=== PATIENT | female | born 1965 | race American Indian/Alaskan Native ===

== ENCOUNTER 2016-11-07 15:15 | Emergency (ER) | payer OTHER ==
[~2016-11-07] VITALS: Ht 160 cm; Wt 70.8 kg
[~2016-11-07 15:15] MED LIST: ADVIL200 M1 PO; ASPIR 8181 MG PO; BENADRYL25 MG PO; CALCIUM + VITA1 EACH PO; CIPROFLOXACIN500 MG PO; GLUCOPHAGE XR750 MG PO; IBUPROFEN400 MG PO; IBUPROFEN600 MG PO; MOTRIN600 MG PO; MULTI VITAMIN1 EACH PO; MULTIVITAMINS1 EAC7 PO; NORCO 5-325 TA1 EACH PO; NORCO 7.5-3251 EACH PO; PANCREASE MT PO; POTASSIUM CHLO20 ME1 PO; RANITIDINE HCL150 MG PO; REDNESS RELIEF15 M1 OP; TRAMADOL HCL50 MG PO; TUMS200 MG PO; TYLENOL WITH C1 EACH PO; TYLENOL325 MG PO; VITAMIN D2000 UNI1 PO; VITAMIN D5000 UNIT PO; XALATAN2.5 ML OU
[2017-03-22] MEDS ORDERED: GLUCOPHAGE1000 MG PO (08:57)
== END 2016-11-07 15:32 | disposition home or self-care (01) ==
LOC: ED 15:15
DX: Z00.8 Encounter for other general examination (principal)

== ENCOUNTER 2016-11-13 18:46 | Emergency (ER) | payer OTHER ==
[~2016-11-13] VITALS: Ht 160 cm; Wt 70.8 kg
[2016-11-13] MEDS ORDERED: ZANTAC150 MG PO (22:15)
[2016-11-13] MEDS ORDERED: ZOFRAN ODT4 MG PO (22:15)
--- NOTE | 2016-11-14 06:23 | EKG ---
[facility] [address] [facility] [place], [place] [address] Signed Normal sinus rhythm Prolonged QT Abnormal ECG No previous ECGs available Confirmed by COLLINS NUNEZ MD ([id number]) on 11/14/2016 6:23:21 AM Electronically Signed By: COLLINS NUNEZ MD 11/14/16622 PATIENT NAME: TAVIA MENDIETAPRINCE LARA Electrocardiogram DATE OF : 67 PHYSICIAN: COLLINS NUNEZ MD REPORT #: [id number] REPORT IS CONFIDENTIAL AND NOT TO BE RELEASED WITHOUT AUTHORIZATION
[2017-03-22] MEDS ORDERED: GLUCOPHAGE1000 MG PO (08:57)
== END 2016-11-13 22:25 | disposition home or self-care (01) ==
LOC: ED 18:46
DX: F10.188 Alcohol abuse with other alcohol-induced disorder (principal); K29.20 Alcoholic gastritis without bleeding; K85.20 Alcohol induced acute pancreatitis without necrosis or infection; F41.9 Anxiety disorder, unspecified; R73.03 Prediabetes; Z98.51 Tubal ligation status; Z90.710 Acquired absence of both cervix and uterus; Z90.49 Acquired absence of other specified parts of digestive tract; Z91.038 Other insect allergy status; Z79.84 Long term (current) use of oral hypoglycemic drugs; Z79.82 Long term (current) use of aspirin; Z79.899 Other long term (current) drug therapy
CPT/HCPCS: 80053; 81001; 83690; 84484; 85025; 93005; 93010; 96361; 96374; 96375; 99283; G0480; J2405; J2765; J3010; J7030

== ENCOUNTER 2016-12-18 13:15 | Inpatient (IN) | payer OTHER ==
[~2016-12-18] VITALS: Ht 160 cm; Wt 72.6 kg
[~2016-12-18 13:15] MED LIST changes: +ZANTAC150 MG PO; +ZOFRAN ODT4 MG PO
[2016-12-18] MEDS ORDERED: IBUPROFEN800 MG PO (17:10)
--- NOTE | 2016-12-18 17:50 | NUR ---
TO FLOOR FROM ED, PANCREATITIS. PATIENT COMPLAINING OF PAIN 10/10 ON PAIN SCALE. ADMINISTERED 1MG DILAUDID IV, CONTROLS PAIN WELL. IV FLUIDS INFUSING. PATIENT RESTING BACK IN BED. LIPASE 3436. CBG 430 IN ED, INSULIN ADMINISTERED. DISCUSSED WITH PATIENT DIABETES, AND PANCREAS. WILL NEED CONTINUED EDUCATION.
--- NOTE | 2016-12-18 18:23 | NUR ---
PT USED BATHROOM AND IS NOW BACK IN BED. PT ASKED FOR SWABS FOR MOUTH
--- NOTE | 2016-12-18 19:15 | NUR ---
BEDSIDE SHIFT REPORT RECEIVED FROM FAMILIA HINDS. PT SITTING UP IN BED, STATES HER ABDOMEN IS STARTING TO HURT AGAIN. IV PATENT AND INFUSING WNL. DENIES FURTHER REQUESTS AT THIS TIME.
--- NOTE | 2016-12-18 19:50 | NUR ---
PT NAUSEATED, WITH SMALL AMOUNT OF EMESIS, 4MG IV ZOFRAN GIVEN.
--- NOTE | 2016-12-18 20:10 | NUR ---
PT REPORTS 9/10 ABDOMINAL PAIN, 1MG IV DILAUDID GIVEN AT THIS TIME. WILL CONTINUE TO MONITOR.
--- NOTE | 2016-12-18 21:15 | NUR ---
CHECKED IN ON PT WHO IS CURRENTLY SLEEPING, RESPIRATIONS EVEN AND UNLABORED.
--- NOTE | 2016-12-18 22:40 | NUR ---
CALLED DR. NUNEZ BECAUSE PT WAS FEELING NAUSEATED AND DID NOT HAVE ANY MORE MEDICATION AVAILABLE. NEW ORDER RECEIVED FOR 12.5MG IV PHENERGAN. ASSESSMENT COMPLETED. ALERT/ORIENTED. REPORTS 8/10 ABDOMINAL PAIN, 1MG IV DILAUDID GIVEN. LUNGS CLEAR, RA, PULSE OX. HR REUGLAR. BOWEL TONES SLIGHTLY HYPOACTIVE, NAUSEA REPORTED, 12.5MG IV PHENERGAN GIVEN. SKIN INTACT, CMS INTACT. PT DENIES FURTHER REQUESTS AT THIS TIME.
--- NOTE | 2016-12-19 00:01 | NUR ---
PT SLEEPING, NO APPARENT DISTRESS. RESPIRATIONS EVEN AND UNLABORED. IV INFUSING WNL. WILL CONTIUE TO MONITOR.
--- NOTE | 2016-12-19 02:03 | NUR ---
PT REPORTS 8/10 ABDOMINAL PAIN, 1MG IV DILAUDID GIVEN. PT ALSO REPORTS NAUSEA, 4MG IV ZOFRAN GIVEN. CB. DENIES NEEDS, WILL CONTINUE TO MONITOR.
--- NOTE | 2016-12-19 02:49 | NUR ---
PT SLEEPING, NO APPARENT DISTRESS. RESPIRATIONS EVEN AND UNLABORED, PULSE OX IN PLACE. WILL CONTINUE TO MONITOR.
--- NOTE | 2016-12-19 06:17 | NUR ---
ASSESSMENT COMPLETED. PT RATES ABDOMINAL PAIN 8/10 ALSO STATES SHE IS MILDLY NAUSEATED. CIWA COMPLETED AT THIS TIME:7, 1MG IV ATIVAN ADMINISTERED, WILL HOLD OFF ON PAIN AND ANTIEMETIC MEDICATION FOR THE TIME BEING. ASSESSMENT OTHERWISE IS UNCHANGED. PT SBA TO BATHROOM, VOIDED AND THEN RETURNED TO BED. CALL LIGHT IS WITHIN REACH, DENIES FURTHER REQUESTS. WILL CONTINUE TO MONITOR.
--- NOTE | 2016-12-19 06:19 | NUR ---
PT SLEPT MAJORITY OF NIGHT. PAIN WELL CONTROLLED WITH IV DILAUDID. OCCASIONAL NAUSEA AND EMESIS, ZOFRAN AND PHERGAN ADMINISTERED. BOWEL TONES HYPOACTIVE. NPO. SBA. VOIDING QS. IV PATENT, NS @125. CIWA THIS MORNIN, 1MG IV ATIVAN GIVEN, WILL TITRATE TO FULL DOSE IF NEEDED. ACCUCHECKS.
--- NOTE | 2016-12-19 09:00 | NUR ---
PATIENT AWAKE, REQUESTING PAIN MEDICAITON, REPORTS FEELING BETTER. AT BEDSIDE. IV FLUIDS INFUSING. NO TENDERNESS WITH PALPATION. STBY TO BR. PATIENT STATES " I AM FEELING A LITTLE BETTER".
--- NOTE | 2016-12-19 11:06 | NUR ---
PT SHOWERED AND IS NOW SITTING IN THE CHAIR WITH CALL LIGHT IN REACH
--- NOTE | 2016-12-19 13:00 | NUR ---
REPORTED CBG TO DR. NUNEZ NEW ORDERS FOR 5 UNITS OF LEVEMIR. NO COMPLAINTS OF PAIN AT THIS TIME. RESTING WITH EYES CLOSED. PATIENT APPEARS CALM. AT BEDSIDE WATCHING TELEVISION. PROVIDED PATIENT WITH APPLE JUICE AND ICE CHIPS TO SIP ON FOR COMFORT. PATIENT VERBALIZED UNDERSTANDING TO TAKE IT SLOW.
--- NOTE | 2016-12-19 14:13 | NUR ---
PT IS SITTING UP IN BED WATCHING TV.PT DID NOT NEED ANYTHING ELSE
--- NOTE | 2016-12-19 15:50 | NUR ---
Medications reconciled by pharmacist using pharmacy RX records and verification with patient interview. Xalatan opth drops ordered. Patient will have her bring in her own as we do not carry them
--- NOTE | 2016-12-19 17:00 | NUR ---
REPORTED ELEVATED CBG TO DR. LOCKWOOD WHO VERBALIZED WOULD LIKE CBGS TO STAY ON HIGHER SIDE FOR AWHILE, NO INSULIN AT THIS TIME. PATIENT TOLERATED SIPS OF CLEAR FLUDS AND ICE CHIPS. UP AMBULATING IN HALLS, TOLERATING ACTIVITY WELL. NO REPORTS OF DISCOMFORT AT THIS TIME.
--- NOTE | 2016-12-19 17:44 | NUR ---
PT WALKED TWO LAPS, USED BATHROOM, AND IS NOW SITTING UP IN BED WITH CALL LIGHT IN REACH. PT IS ALLOWED ICE CHIPS. PT ASKED FOR A NEW SPOON
--- NOTE | 2016-12-19 18:39 | NUR ---
PATIENT TOLERATING SIPS OF CLEAR FLUIDS, PAIN MANAEMENT IMPROVED. ADMINISTERED PAIN MEDICATION X1 TODAY. TOLERATING AMBULATING IN HALLS WELL. LUNG SOUNDS CLEAR. IV FLUIDS INFUSING WELL. AT BEDSIDE.
--- NOTE | 2016-12-19 19:20 | NUR ---
BEDSIDE SHIFT REPORT RECEIVED FROM FAMILIA HINDS. PT SITTIN UP IN BED, STATED THAT PAIN IS STARTING TO INCREASE. DENIES NAUSEA. IV PATENT, INFUSING WNL. WILL CONTINUE TO MONITOR.
--- NOTE | 2016-12-19 20:23 | NUR ---
ASSESSMENT COMPLETED. ALERT/ORIENTED, REPORTS 8/10 ABDOMINAL PAIN, 1MG IV DILAUDID GIVEN. LUNGS CLEAR, RA, PULSE OX. HR REGULAR. BOWEL TONES ACTIVE, DENIES NAUSEA. CMS INTACT. CB, LEVEMIR ADMINISTERED. CIWA:4, WILL CONTINUE TO MONITOR FOR S/SX OF ETOH WITHDRAWAL. PT NOW UP TO AMBULATE IN HALLWAY.
--- NOTE | 2016-12-19 22:17 | NUR ---
PT RESTING IN BED WITH EYES CLOSED, NO APPARENT DISTRESS. RESPIRATIONS EVEN AND UNLABORED, WILL CONTINUE TO MONITOR.
--- NOTE | 2016-12-19 23:39 | NUR ---
PT APPEARS TO BE SLEEPING AT THIS TIME. RESPIRATIONS EVEN AND UNLABORED, SATS: 94% ON RA. NO APPARENT DISTRESS. WILL CONTINUE TO MONITOR.
--- NOTE | 2016-12-20 02:45 | NUR ---
PT APPEARS TO BE SLEEPING, NO APPARENT DISTRESS. RESPIRATIONS EVEN AND UNLABORED. OXYGEN SATS: 93% ON RA. WILL CONTINUE TO MONITOR.
--- NOTE | 2016-12-20 03:27 | NUR ---
PT CALLED TO REQUEST PAIN MEDICATION. RATES ABDOMINAL PAIN 7/10, 1MG IV DILAUDID GIVEN. ASSESSMENT COMPLETED. LUNGS CLEAR, RA, PULSE OX. HR REGULAR. BOWEL TONES ACTIVE, NO NAUEA. IV PATENT. NO FURTHER REQUESTS AT THIS TIME.
--- NOTE | 2016-12-20 05:22 | NUR ---
PT SLEPT WELL DURING SHIFT. ORIENTED WHILE AWAKE. PAIN WELL CONTROLLED WITH PRN DILAUDID, GIVEN TWICE. LUNGS CLEAR, RA, PULSE OX. HR REGULAR. BOWEL TONES ACTIVE, MILD NAUSEA AT TIMES, NO EMESIS, HAS NOT REQUIRED ANTIEMETICS. TOLERATING ICE CHIPS. ACCUCHECKS AND LEVEMIR. IV PATENT, POSITIONAL, NS @125. MONITORING CIWA: 4 AT BEGINNING OF SHIFT, NO PRN ATIVAN REQUIRED. SBA, STEADY ON FEET, AMBULATED IN HALLWAY ONCE.
--- NOTE | 2016-12-20 09:00 | NUR ---
PATIENT SITTING UP, TOLERATING CLEAR LIQUIDS. NEW ODERS FOR MIRALAXM, TOLERATED WELL. NO COMPLAINTS OF NAUSEA. PATIENT REQUESTED IV DILAUDID FOR PAIN 4/10 ON PAIN SCALE. ADMINISTERED 0.5MG, PATIENT UP AMBULATING IN HALLS. EDUCATION WITH IS. VS STABLE.
--- NOTE | 2016-12-20 13:00 | NUR ---
RESTING IN BED EYES CLOSED, ENCOURAGED PATIENT TO GET UP AND AMBULATE IN HALLS. PAIN WELL CONTROLLED. ABDOMEN SOFT, BOWEL SOUNDS ACTIVE. VS STABLE.
--- NOTE | 2016-12-20 16:58 | NUR ---
CBG 211, PATIENT STATES FEELS BETTER BUT STILL HAVING PAIN. RATES 4/10 ON PAIN SCALE. ENCOURAGED PATIENT TO GET UP AND AMBULATE IN HALLS, AGREED AND IS TOLERATING ACTIVITY WELL.
--- NOTE | 2016-12-20 18:40 | NUR ---
PATIENT ADVANCED TO FULL LIQUID DIET ADA, CBG STABLE. AAOX3. PAIN WELL CONTROLLED AND IMPROVED SINCE ADMISSION. PAIN REGIME CHANGED TO ROXICODONE PO. VS STABLE. PATIENT UP AMBULATING IN HALLS THROUGHOUT DAY, TOLERATING ACTIVITY WELL.
--- NOTE | 2016-12-20 19:20 | NUR ---
BEDSIDE SHIFT REPORT RECEIVED FROM FAMILIA HINDS. PT IS ALERT/ORIENTED. IV PATENT, INFUSING WNL. WILL CONTINUE TO MONITOR.
--- NOTE | 2016-12-20 21:10 | NUR ---
ASSESSMENT COMPLETED. ALERT/ORIENTED. REPORTS 11/16 ABDOMINAL PAIN, 0.5MG IV DILAUDID GIVEN SINCE IT WAS TOO EARLY TO GIVE OXYCODONE. LUNGS CLEAR, RA. HR REGULAR. BOWEL TONES ACTIVE, DENIES NAUSEA. CB, 5 UNITS LEVEMIR ADMINISTERED. CIWA: 0. PT DENIES FUTHER REQUESTS AT THIS TIME.
--- NOTE | 2016-12-20 21:25 | NUR ---
PT UP AMBULATING IN HALLWAY. STEADY ON FEET.
--- NOTE | 2016-12-20 23:15 | NUR ---
PT CALLED TO REQUEST PAIN MEDICATION. 1 TAB OXYCODONE GIVEN AT THIS TIME. PT DENIES FURTHER REQUESTS.
--- NOTE | 2016-12-21 02:48 | NUR ---
PT SLEEPING AT THIS TIME, NO APPARENT DISTRESS. RESPIRATIONS EVEN AND UNLABORED. WILL CONTINUE TO MONITOR.
--- NOTE | 2016-12-21 05:07 | NUR ---
UNEVENTFUL SHIFT, PT SLEPT MAJORITY OF NIGHT. PAIN WELL CONTROLLED WITH PRN OXYCODONE, GAVE 0.5MG IV DILAUDID ONCE FOR BREAKTHROUGH PAIN. NO NAUSEA. LUNGS CLEAR, RA. HR REGULAR. BOWEL TONES ACTIVE, TOLERATING FULL LIQUIDS. IV PATENT, NS @ 65ML/HR. VOIDING QS. STEADY ON FEET, INDEPENDENT, AMBULATED IN HALLWAY. CIWA: 0. ACCUCHECKS AND BID LEVEMIR.
[2016-12-21] MEDS ORDERED: OXYCODONE HCL5 MG PO (10:04)
[2016-12-21] MEDS ORDERED: METFORMIN HCL500 MG PO (10:04)
[2016-12-21] MEDS ORDERED: BLOOD GLUCOSE1 EAC1 MISC (10:05)
[2016-12-21] MEDS ORDERED: BLOOD GLUCOSE1 EAC8 MISC (10:05)
[2016-12-21] MEDS ORDERED: ACCU-CHEK1 EAC1 MISC (10:06)
--- NOTE | 2016-12-21 10:21 | NUR ---
PATIENT RESTING IN BED WITH FAMILY BY HER SIDE. CALL BUTTON IN REACH. FACE AND HANDS WASHED. ORAL CARE DONE. PATIENT WOULD LIKE TO SHOWER WHEN SHE GOES HOME TODAY. FRESH ICE WATER GIVEN. NO OTHER NEEDS AT THIS TIME.
--- NOTE | 2016-12-21 11:18 | NUR ---
DISCHARGE INSTRUCTIONS GIVEN TO PT WITH FAMILY PRESENT. TO CHECK BG BEFORE BREAKFAST EVERY AM ON FLOW CHART GIVEN TO DOCUMENT ON THEN TAKE TO FOLLOW UP APPOINTMENT. PT ED. GIVEN ON ADA DIET LOW CARB/SUGAR DIET CHOICES. DISCUSSED MEDICATIONS WITH PT AND LAST DOSE NEXT DOSE WRITTEN ON D/C PACKET. I.V. REMOVED WNL TIP INTACT. PT VERBALIZES UNDERSTANDING AND HAS NO FURTHER QUESTIONS. FOLLOW UP APPOINTMENT THSULY. PRE-SCHEDULED
[2017-03-22] MEDS ORDERED: GLUCOPHAGE1000 MG PO (08:57)
== END 2016-12-21 11:18 | disposition home or self-care (01) | DRG 439 ==
LOC: ED 13:15 → MS 16:20
PROVIDERS: ADMIT Internal Medicine
DX: K85.20 Alcohol induced acute pancreatitis without necrosis or infection (principal); F10.188 Alcohol abuse with other alcohol-induced disorder; D50.8 Other iron deficiency anemias; E11.65 Type 2 diabetes mellitus with hyperglycemia; E11.39 Type 2 diabetes mellitus with other diabetic ophthalmic complication; H40.9 Unspecified glaucoma; F41.9 Anxiety disorder, unspecified; K59.00 Constipation, unspecified; Z79.84 Long term (current) use of oral hypoglycemic drugs; Z79.4 Long term (current) use of insulin; Z90.710 Acquired absence of both cervix and uterus; Z90.49 Acquired absence of other specified parts of digestive tract
CPT/HCPCS: 36415; 74177; 80048; 80053; 81001; 82150; 82607; 82728; 82746; 83036; 83540; 83690; 83735; 84100; 84466; 85025; 85045; 85610; 96361; 96374; 96375; 99285; J1170; J1650; J2060; J2405; J2550; J7030; Q9967

== ENCOUNTER 2017-03-23 08:50 | Day surgery (SDC) | payer OTHER ==
[~2017-03-23] VITALS: Ht 160 cm; Wt 67.1 kg
[~2017-03-23 08:50] MED LIST changes: +ACCU-CHEK1 EAC1 MISC; +BLOOD GLUCOSE1 EAC1 MISC; +BLOOD GLUCOSE1 EAC8 MISC; +GLUCOPHAGE1000 MG PO; +IBUPROFEN800 MG PO; +METFORMIN HCL500 MG PO; +OXYCODONE HCL5 MG PO
[2017-03-23] MEDS ORDERED: RANITIDINE HCL75 MG PO (09:05)
--- NOTE | 2017-03-23 12:38 | NUR ---
03/23/17 1238 Nicole Cano 1233-PATIENT ARRIVED TO PACU ON 10L MASK 02 SAT 100% ORAL AIRWAY IN PLACE. NONAROUSABLE. DRESSING CDI TO RIGHT KNEE ELEVATED ON PILLOW ICE APPLIED. GOOD CAP REFILL, WARMTH, PALPABLE PEDAL PULSE. GLUCOSE 160
--- NOTE | 2017-03-23 13:40 | NUR ---
PT ARRIVED FROM PACU. REPORTING 8/10 PAIN (SEE MAR FOR MEDICATION GIVEN). PT TOLERATING PO FOOD AND FLUIDS, PT DENIES NAUSEA. FAMILY AT BEDSIDE. BED RAILS UP, CALL LIGHT WITHIN REACH. PT AWAKE AND RESPONDING APPROPRIATLY TO QUESTIONS.
--- NOTE | 2017-03-23 14:46 | NUR ---
PT STEADY ON FEET WITH ONE PERSON STAND BY ASSIST. PT TOLERATING PO AND VOIDING WITHOUT ISSUE. PT REPORST 11/16 PAIN THAT IS "GETTING MUCH BETTER." PT DRESSES SELF. DISCHARGE INSTRUCTIONS REVIEWED WITH PT. PT VERBALIZES UNDERSTANDING OF DISCHARGE INSTRUCTIONS. QUESTIONS ANSWERED.
--- NOTE | 2017-03-25 07:17 | OR ---
[facility] [address] [place], [place] [address] Signed DATE OF OPERATION: 03/22/2017 SURGEON: Cortes Eid MD PREOPERATIVE DIAGNOSIS: Loose body, right knee with patellofemoral arthrosis. POSTOPERATIVE DIAGNOSIS: Loose body, right knee with patellofemoral arthrosis. PROCEDURE: Right knee arthroscopy with removal of loose body x1 and limited patellofemoral chondroplasty. ANESTHESIA: General. SPECIMENS: There were no specimens. COMPLICATIONS: There were complications. TOURNIQUET TIME: About 30 minutes. WHAT WAS DONE: The patient was taken to the operating room. After anesthesia was induced, the right lower extremity was positioned, prepped and draped in a routine sterile fashion. The leg was exsanguinated with an Esmarch bandage. Pneumatic tourniquet about the upper thigh was inflated to 300 mmHg pressure. The outflow cannula was placed superomedially and the arthroscope in the standard anterolateral portal. Diagnostic arthroscopy was commenced in the suprapatellar pouch, where there was a moderate injected synovitis. The medial recess was unremarkable, as was the medial compartment. The intercondylar notch was unremarkable. have synovitis in the lateral compartment which precluded visualization. We therefore created an anteromedial portal under direct visualization with transillumination and the use of a spinal needle for localization. We then introduced the motorized shaver, did a limited synovectomy and could visualize the lateral compartment, which was similarly unremarkable. The lateral recess was unremarkable except for the loose body, no located at the apex of the lateral recess. We withdrew the outflow cannula, inserted a grasper. We were able to grasp the loose body and delivered out of the wound without difficulty. We then introduced the shaver through the superomedial portal and did a very limited chondroplasty of the patellofemoral joint as the entire lateral half of the patella and the entire lateral half of the trochlea and the lateral femoral condyle with the patella track was completely devoid of articular cartilage. The knee was copiously irrigated and drained. The portals were closed. Electronically Signed By: CORTES EID MD 03/25/17 0717 PATIENT NAME: KAREY MENDIETA OPERATIVE REPORT DATE OF : 67 PHYSICIAN: CORTES EID MD REPORT #: [id number] REPORT IS CONFIDENTIAL AND NOT TO BE RELEASED WITHOUT AUTHORIZATION [address] [address] Signed Sterile dressing was applied. She was awakened and taken to recovery room, where she arrived in stable condition. MD KEILA Betancourt/MODL /[id number] Electronically Signed By: CORTES EID MD 03/25/17 0717 PATIENT NAME: KAREY MENDIETA JANE OPERATIVE REPORT DATE OF : 67 PHYSICIAN: CORTES EID MD REPORT #: [id number] REPORT IS CONFIDENTIAL AND NOT TO BE RELEASED WITHOUT AUTHORIZATION
== END 2017-03-23 14:50 | disposition home or self-care (01) ==
LOC: OPS 08:50 → DS 08:50 → OPS 10:15
PROVIDERS: Orthopaedic Surgery
PROC: 0SBC4ZZ Excision of Right Knee Joint, Percutaneous Endoscopic Approach (ICD-10-PCS; principal; 2017-03-23 10:15)
DX: M17.11 Unilateral primary osteoarthritis, right knee (principal); M23.41 Loose body in knee, right knee; M65.861 Other synovitis and tenosynovitis, right lower leg; H40.9 Unspecified glaucoma; E11.9 Type 2 diabetes mellitus without complications; K21.9 Gastro-esophageal reflux disease without esophagitis; I20.9 Angina pectoris, unspecified; Z95.5 Presence of coronary angioplasty implant and graft
CPT/HCPCS: 01400; J0690; J1100; J1170; J1885; J2250; J2405; J2704; J3010; J3301; J7120

== ENCOUNTER 2018-01-03 12:39 | Inpatient (IN) | payer OTHER ==
[~2018-01-03] VITALS: Ht 160 cm; Wt 71.7 kg
[~2018-01-03 12:39] MED LIST changes: +RANITIDINE HCL75 MG PO
--- NOTE | 2018-01-19 09:23 | OR ---
[facility] [address] [place], [place] [address] Signed DATE OF OPERATION: 01/18/2018 SURGEON: Cortes Paulino MD PREOPERATIVE DIAGNOSIS: End-stage osteoarthritis, right knee. POSTOPERATIVE DIAGNOSIS: End-stage osteoarthritis, right knee. PROCEDURE: Right total knee arthroplasty. ANESTHESIA: Spinal with sedation. SPECIMENS AND COMPLICATIONS: There were no specimens or complications. TOURNIQUET TIME: About 75 minutes. IMPLANTS: Attune total knee components a size 5 narrow PS femoral component, a size 3 tibial tray, a 6 mm size 5 PS poly, and a 35 mm all-poly patella. WHAT WAS DONE: The patient was taken to the operating room. After anesthesia was induced and the airway supported, the right lower extremity was positioned, prepped and draped in a routine sterile fashion. The leg was exsanguinated with an Esmarch bandage. Pneumatic tourniquet was inflated to 300 mmHg pressure. A straight anterior approach was made at the knee through skin and subcutaneous tissue. A small medial flap was created and an anteromedial arthrotomy performed. The patella was everted about 7 mm were trimmed off the posterior aspect of the patella, which was severely worn. We then placed the lollipop for the 35 mm all-poly patella on the cut surface of the patella and placed the drill holes. We then snap-fit the trial patella in place and finally we had reconstituted approximately 23 mm of patellar height. We then slid the patella into the lateral recess. We then gently flexed the knee. We placed the [employer] navigation system on the distal end of the femur and following the prompts digitized the distal femur. We then resected the distal femur in neutral varus valgus, 3 degrees of flexion Electronically Signed By: CORTES PAULINO MD 01/19/18 0923 PATIENT NAME: KAREY MENDIETA OPERATIVE REPORT DATE OF : 67 REPORT #: [id number] PHYSICIAN: CORTES PAULINO MD PCP: ALEXY COBB REPORT IS CONFIDENTIAL AND NOT TO BE RELEASED WITHOUT AUTHORIZATION [facility] [address] [place], [place] [address] Signed taking an 11 mm off the medial side. We then transitioned the navigation system to the proximal tibia. Again, following the prompts for digitized the proximal tibia. I resected the tibia at about 4 mm off the medial side in neutral varus valgus with 3 degrees of posterior slope per the Attune surgical protocol. The tibial wafer was then removed along with remnants of the medial lateral meniscus, ACL and PCL. We then placed the extension block in place and put the knee in full extension and we are happy with alignment, position, and stability with the 6 mm of the block in place. We then flexed the knee. The femur sized to a size 5. We placed a size 5 three in one cutting block on the distal femur in 3 degrees of external rotation. I made anterior, posterior, and chamfer cuts. The notch cutting block was then placed on the distal femur and the notch was cut out. We then placed the lamina elementary substitute teacher in the knee joint and removed the remaining portions of the medial lateral meniscus, ACL and PCL. We then placed the femoral trial on the distal femur and drilled the lug holes. The tibia had sized to a size three when we resected the tibial wafer. Therefore, we put a three with a 5 mm in the joint and cycled. We marked the rotational alignment. We then removed the trials and prepared the tibia with a standard reamer and broach. The knee was then copiously irrigated and meticulously dried. A batch of antibiotic cement was mixed and we cemented the tibia, femoral and patellar components into place. We put a trial 6 mm poly on the tibial tray and this gave us a full extension with a good balance in flexion extension in mid range. The knee was held in full extension until all the cement cured. Marginal cement of heights were sought and removed. The knee was again copiously irrigated. We did trial the knee with a 7 mm poly and although we could get it then inflection, clearly compromised our extension. We therefore chose a 6 mm poly and snap fitted into the tibial tray. The knee was copiously irrigated and drained. The wound was closed in a standard fashion. Sterile dressing applied. The patient was awakened to the recovery room where she arrived in stable condition. Counts were correct and antibiotic protocols were followed. Cortes Paulino MD WFB/MODL /[id number] Copies: Electronically Signed By: CORTES PAULINO MD 01/19/18 0923 PATIENT NAME: KAREY MENDIETA OPERATIVE REPORT DATE OF : 67 REPORT #: [id number] PHYSICIAN: CORTES PAULINO MD PCP: ALEXY COBB REPORT IS CONFIDENTIAL AND NOT TO BE RELEASED WITHOUT AUTHORIZATION [facility] [address] [place], [place] [address] Signed ~ Electronically Signed By: CORTES PAULINO MD 01/19/18922 PATIENT NAME: TAVIA MENDIETAPRINCE LARA OPERATIVE REPORT DATE OF : 67 REPORT #: [id number] PHYSICIAN: CORTES PAULINO MD PCP: ALEXY COBB REPORT IS CONFIDENTIAL AND NOT TO BE RELEASED WITHOUT AUTHORIZATION
[2018-01-19] MEDS ORDERED: BLOOD GLUCOSE1 EAC1 MISC (11:04)
[2018-01-19] MEDS ORDERED: BLOOD GLUCOSE1 EAC8 MISC (11:05)
[2018-01-19] MEDS ORDERED: ACCU-CHEK1 EAC1 MISC (11:06)
[2018-01-19] MEDS ORDERED: XALATAN2.5 ML OU (11:07)
[2018-01-21] MEDS ORDERED: XARELTO10 MG PO (13:57)
[2018-01-21] MEDS ORDERED: DILAUDID4 MG PO (13:58)
[2018-01-21] MEDS ORDERED: OXYCODONE HCL10 MG PO (13:59)
--- NOTE | 2018-01-22 10:33 | DS ---
[facility] [address] [place], [place] [address] Signed ADMISSION DATE: 01/18/2018 DISCHARGE DATE: 01/21/2018 DIAGNOSES AT TIME OF DISCHARGE: 1. Osteoarthritis, right knee. 2. Diabetes mellitus. PROCEDURES PERFORMED: Right total knee arthroplasty. ATTENDING PHYSICIAN: Cortes Paulino MD. The hospitalists were consultants. HISTORY OF PRESENT ILLNESS: The patient is a 52-year-old female with progressive osteoarthritis in the right knee. No longer getting any symptomatic relief from conservative management. Given that scenario, she was comfortable considering total knee arthroplasty on the right. HOSPITAL COURSE: She was admitted to Day Surgery on 01/18/2018. She was taken to the operating room, where she underwent a total knee arthroplasty on the right with an Attune total knee system. She had a size 5 narrow PS femur, a size 3 fixed bearing tibial tray, and a 6 mm posterior stabilized poly, and a 35 mm all-poly patella. Postoperatively, she has done well. She was seen in consultation by the Hospitalist Service, who has managed her diabetes and concurrent medical issues. In fact, she has done very well with physical therapy. She has passed all of her physical therapy parameters and is felt to be safe and independent for discharge home. We are discharging her home alternating Dilaudid and oxycodone for pain relief. We will have her continue on the Xarelto 10 mg once a day for DVT prophylaxis for the next month. We will have her follow up with us in about 6 weeks. We will arrange for her to get a walker and therapy has already been ordered for her beginning on Wednesday. MD KEILA Betancourt/RICKL /[id number] Electronically Signed By: CORTES PAULINO MD 01/22/18 1033 PATIENT NAME: KAREY MENDIETA DISCHARGE SUMMARY DATE OF : 67 REPORT #: [id number] PHYSICIAN: CORTES PAULINO MD PCP: ALEXY COBB REPORT IS CONFIDENTIAL AND NOT TO BE RELEASED WITHOUT AUTHORIZATION [address] [place] [address] Signed Copies: ~ Electronically Signed By: CORTES PAULINO MD 01/22/18 1033 PATIENT NAME: KAREY MENDIETA DISCHARGE SUMMARY DATE OF : 67 REPORT #: [id number] PHYSICIAN: CORTES PAULINO MD PCP: ALEXY COBB REPORT IS CONFIDENTIAL AND NOT TO BE RELEASED WITHOUT AUTHORIZATION
== END 2018-01-21 16:15 | disposition home or self-care (01) | DRG 470 ==
LOC: MS 01-18 08:45 → DSVR 01-18 08:55 → MS 01-18 08:55
PROVIDERS: ADMIT Orthopaedic Surgery
PROC: 0SRC0J9 Replacement of Right Knee Joint with Synthetic Substitute, Cemented, Open Approach (ICD-10-PCS; principal; 2018-01-18 10:45)
DX: M17.11 Unilateral primary osteoarthritis, right knee (principal); Z79.84 Long term (current) use of oral hypoglycemic drugs; E11.9 Type 2 diabetes mellitus without complications; K21.9 Gastro-esophageal reflux disease without esophagitis; F10.20 Alcohol dependence, uncomplicated; H40.9 Unspecified glaucoma; R01.1 Cardiac murmur, unspecified
CPT/HCPCS: 01402; 36415; 73560; 80048; 83036; 85025; 94762; 97110; 97116; 97161; C1713; C1776; G8979; J0690; J1815; J1885; J2250; J2274; J2300; J2370; J2405; J2550; J2704; J3010; J7120

== ENCOUNTER 2018-05-17 16:53 | Observation (INO) | payer OTHER ==
[~2018-05-17] VITALS: Ht 160 cm; Wt 70.2 kg
[~2018-05-17 16:53] MED LIST changes: +DILAUDID4 MG PO; +OXYCODONE HCL10 MG PO; +XARELTO10 MG PO
[2018-05-17] MEDS ORDERED: FLAGYL500 MG PO (19:12)
--- NOTE | 2018-05-17 20:47 | NUR ---
PT ADMITTED TO ROOM 114 FROM ED FOR ABDOMINAL PAIN RELATED TO PANCREATITIS. PT WALKED TO BATHROOM OFF THE STRETCHER, AND BACK TO BED INDEPENDENTLY. DENIES NAUSEA, BUT WAS WANTING SOMETHING FOR PAIN. EDUCATED TO CALL LIGHT WHICH PT STATED AWARENESS, EDUCATED PT TO USE CALL LIGHT WHEN SHE NEEDS TO USE BATHROOM.
--- NOTE | 2018-05-17 21:10 | NUR ---
MED FOR ABDOMINAL PAIN; SUGAR FREE JELLO, SUGAR FREE SPRITE, AND WATER. PT STATED THAT SHE LAST CHECK HER BLOOD SUGAR "YESTERDAY", HAS RUN OUT OF HER EYE DROPS FOR " GLAUCOMA". IV LR INFUSING @ 125 IN RAC. CALL LIGHT WITHIN REACH.
--- NOTE | 2018-05-17 21:30 | NUR ---
PATIENT RESTING IN BED WATCHING TV. REPORTS PAIN 7/10, PRN PAIN MEDS RECENTLY PROVIDED BY [employer]ISHING WORKER. PAIN IS EPIGASTRIC CRAMPING, PATIENT DENIES NAUSEA. ABD IS SOFT, BOWEL SOUNDS ACTIVE. SKIN IS GROSSLY INTACT. IV FLUIDS PER ORDER. PATIENT UP TO THE BATHROOM, SBA. STEADY GAIT. NO OTHER NEEDS AT THIS TIME. PATIENT BACK TO BED, CALL LIGHT IN REACH.
--- NOTE | 2018-05-18 01:00 | NUR ---
PATIENT RESTING IN BED. IV FLUIDS PER ORDER. PATIENT DENIES NEEDS. CALL LIGHT IN REACH.
--- NOTE | 2018-05-18 03:10 | NUR ---
PATIENT REPORTS 7/10 EPIGASTRIC PAIN AND INTERMITTENT NAUSEA. PRN OXY AND ZOFRAN PROVIDED. PATIENT UP TO BATHROOM. INDEPENDENT, STEADY GAIT. PATIENT STATES "IT FEELS LIKE I NEED TO BURP, DO YOU HAVE ANYTHING FOR THAT?" OFFERED PRN MAALOX, PATIENT DENIES INDIGESTION THE PROBLEM. DIET CLEAR SODA PROVIDED TO HELP PATIENT BURP PER HER REQUEST. PATIENT DENIES OTHER NEEDS AT THIS TIME. CALL LIGHT IN REACH.
--- NOTE | 2018-05-18 03:21 | NUR ---
PATIENT CALLED TO USETHE TOILET. SBA. ICE WATER AND DIET SODA GIVEN.
--- NOTE | 2018-05-18 05:00 | NUR ---
PATIENT RESTING IN BED. APPEARS TO BE SLEEPING. RR 18. CALL LIGHT IN REACH.
--- NOTE | 2018-05-18 06:01 | NUR ---
PATIENT ARRIVED TO THE FLOOR LAST NIGHT. CONSISTENT REPORTS OF 7/10 EPIGASTRIC PAIN. MILD NAUSEA, NO EMESIS. PRN OXY X2 AND ZOFRAN X1. IV FLUIDS PER ORDER. SBA. URINE OUTPUT QS. TOLERATING CLEAR LIQUID DIET, ADVANCED TO FULL THIS AM.
--- NOTE | 2018-05-18 07:35 | NUR ---
ASSISTED PT TO RESTROOM. PT ON RA, RESP EVEN AND NON LABORED. PT DENIES PAIN AT THIS TIME. PERSONAL SUPPLIES AND CALL LIGHT WITHIN REACH.
--- NOTE | 2018-05-18 08:34 | NUR ---
BLOOD SUGAR TAKEN AND DOCUMENTED. PT STATES SHE HAS NO NEEDS AT THIS TIME. INFORMED PT TO CALL IF SHE NEEDS ANYTHING. FRESH ICE WATER GIVEN. CALL LIGHT IS IN REACH.
--- NOTE | 2018-05-18 10:21 | NUR ---
VS AND I&O'S TAKEN AND DOCUMENTED. INFORMED PT TO CALL IF SHE NEEDS ANYTHING. CALL LIGHT IS IN REACH.
--- NOTE | 2018-05-18 11:00 | NUR ---
PT TOLERATED FULL LIQUIDS THIS AM WELL. PT REPORTS ABDOMINAL PAIN IS IMPROVED, DECLINED PAIN MEDICATION. PT VOIDING FREQUENTLY. PERSONAL SUPPLIES AND CALL LIGHT WITHIN REACH OF PT.
--- NOTE | 2018-05-18 13:42 | NUR ---
PT SHAGUFTA, ORIENTED AND SAID VERY QUICKLY THAT SHE IS FEELING MUCH BETTER. STRUGGLING TO GET SOME REST. GAVE A BLESSING, WILL FOLLOW NEEDED.
[2018-05-18] MEDS ORDERED: OXYCODONE HCL5 MG PO (16:17)
[2018-05-18] MEDS ORDERED: GLUCOPHAGE1000 MG PO (16:18)
--- NOTE | 2018-05-19 00:52 | EKG ---
[facility] [address] [facility] [place] [address] Signed Normal sinus rhythm Normal ECG When compared with ECG of 11-JAN-2018 10:18, Nonspecific T wave abnormality, improved in Lateral leads QT has lengthened Confirmed by BOZENA CROOKS MD ([id number]) on 05/19/2018 12:52:23 AM Electronically Signed By: BOZENA CROOKS MD 05/19/18 0052 PATIENT NAME: MENDIETAKAREY Electrocardiogram DATE OF : 67 PHYSICIAN: BOZENA CROOKS MD REPORT #: [id number] REPORT IS CONFIDENTIAL AND NOT TO BE RELEASED WITHOUT AUTHORIZATION
== END 2018-05-18 17:25 | disposition home or self-care (01) ==
LOC: ED 16:53 → MS 16:54
PROVIDERS: ADMIT Internal Medicine
DX: K85.00 Idiopathic acute pancreatitis without necrosis or infection (principal); E11.9 Type 2 diabetes mellitus without complications; H40.9 Unspecified glaucoma; K21.9 Gastro-esophageal reflux disease without esophagitis; A59.01 Trichomonal vulvovaginitis; F10.11 Alcohol abuse, in remission; Z90.49 Acquired absence of other specified parts of digestive tract; Z79.84 Long term (current) use of oral hypoglycemic drugs; Z79.1 Long term (current) use of non-steroidal anti-inflammatories (NSAID); Z79.899 Other long term (current) drug therapy
CPT/HCPCS: 74177; 80053; 81001; 82150; 83690; 84484; 85025; 87077; 87088; 87186; 93005; 93010; 96361; 96374; 96375; 96376; 99285-25; G0378; J1815; J2405; J7120; Q9967

== ENCOUNTER 2019-03-23 21:20 | Inpatient (IN) | payer OTHER ==
[~2019-03-23] VITALS: Ht 160 cm; Wt 72.8 kg
[~2019-03-23 21:20] MED LIST changes: +FLAGYL500 MG PO
--- NOTE | 2019-03-24 00:17 | NUR ---
PT ARRIVED ON MS FLOOR AT 2310. V/S ARE WDL SO FAR, ALL LOBES ARE CLEAR, NO PERIPHERAL EDEMA NOTED. OVERALL STRENGTH +5. ABDOMEN IS MODERATLY DISTENDED STATED BY PT BUT SOFT TO TOUCH. ABD IS TENDER TO TOUCH UPPER MIDDLE. PT AT THIS TIME DOES NOT HAVE NAUSEA PRESENT BUT NEEDED 0.5MG IV DILAUDED SINCE ARRIVAL. PT IS ALSO DUE TO VOID. PT HAS GLAUCOMA AND NEEDS HER EYE DROPS. PT ALSO HAS A STEROID CREAM AT HOME FOR HER BILATERAL LOWER LEG PSORIASIS. PERHAPS FAMILY CAN BRING THOSE ITEMS IN TODAY. PT ALSO STATED THAT SHE HAS RIGHT KNEE PAIN FROM A TKA LAST YEAR. PT TAKES IBUPROFEN FOR IT AND WILL ALSO GET A SECOND OPINION AT [facility] THIS MONTH.
--- NOTE | 2019-03-24 01:52 | NUR ---
PT WAS COMPLAINING OF INCREASING NAUSEA. AT THIS TIME NO PRN MED IS AVAILABLE. WILL CONTINUE TO MONITOR AND CALL MD IF NEEDED.
--- NOTE | 2019-03-24 03:30 | NUR ---
PT IS SLEEPING AT THIS TIME.
--- NOTE | 2019-03-24 04:10 | NUR ---
SECOND ASSESSMENT WAS UNCHANGED FROM THE FIRST. ABD IS STILL DISTENDED STATED BY PT BUT SOFT TO TOUCH. PAIN AT THIS TIME 7/10, 0.5MG PRN IV DILAUDED GIVEN. NAUSEA AT THIS TIME HAS SUBSIDED ON ITS OWN WITHOUT INTERVENTION NEEDED. V/S ARE WDL, URINE OUTPUT IS ADEQUATE.
--- NOTE | 2019-03-24 06:20 | NUR ---
PATIENT HAVING 7/10 ABD PAIN AND NAUSEA AND GIVEN 4MG IV ZOFRAN AND 0.5MG IV HYDROMORPHONE. CALL LIGHT IN REACH.
--- NOTE | 2019-03-24 06:26 | NUR ---
PT ARRIVED ON MED/SURG AT 2310. ASSESSMENTS OVERALL WERE WDL. PT STATES THAT HER ABDOMEN IS DISTENDED AND SHE WAS UPPER/ MID ABD PAIN WITH RIGHT SIDED PAIN AT TIMES. PT HAS HAD SOME BOUTS OF NAUSEA BUT NO VOMITING. ABD IS SOFT TO TOUCH BUT TENDER, ABD SOUNDS ARE PRESENT. ALL LOBES ARE CLEAR, PT IS AAOX4, PAIN SO FAR HAS BEEN WELL CONTROLLED WITH PRN DILAUDED IV 0.5 MG. URINE OUTPUT IS ADEQUATE. PER MD CROOKS, IT IS OK FOR PT TO HAVE SIPS OF WATER.
--- NOTE | 2019-03-24 07:37 | NUR ---
0725: Bedside report recieved from Mary BARBOSA. Pt resting in her bed and she states she is doing ok at this time. Call martinez within reach.
--- NOTE | 2019-03-24 08:34 | NUR ---
When I was receiving report the pt was drinking about 100 ml of water. She was instructed that she is to only have sips which she stated understanding. The pt had drank all of her water and she was given no more, she does have some ice chips. At 0832 she called and had about 250 ml of emesis. She states that she no longer has any nausea and that it came on quick and went away quickly. She was again instructed to only take in very few ice chips which she states understanding.
--- NOTE | 2019-03-24 10:05 | NUR ---
PT GIVEN AN IS AND INSTUCTED IN IT'S USE. SHE IS USING IT CORRECTLY AT THIS TIME.
--- NOTE | 2019-03-24 10:20 | NUR ---
PT RESTING IN HER BED AND SHE STATES HER PAIN IS NOW WELL CONTROLED AND THAT SHE HAS NO NAUSEA.
--- NOTE | 2019-03-24 10:58 | NUR ---
Pt sleeping at this time.
[2019-03-24] MEDS ORDERED: LATANOPROST2.5 ML OU (11:09)
[2019-03-24] MEDS ORDERED: B-121000 MC2 PO (11:13)
--- NOTE | 2019-03-24 11:17 | NUR ---
MED REC COMPLETED.
--- NOTE | 2019-03-24 12:28 | NUR ---
PT AWOKE FOR A NAP AND NOW STATES SHE IS FEELING BETTER SHE STATES SHE SLEPT POORLY LAST NIGHT. PT ASSISTED TO THE BR AND WAS STEADY ON HER FEET. SHE VOIDED AND HER URINE IS A CLOUDY YELLOW.
--- NOTE | 2019-03-24 12:42 | NUR ---
In for CM assessment. Pt resting in bed, c/o abd pain. [facility] [place] for pancreatitis. Had a knee replacement Jan 2018, states has pain daily and uses a cane as she is unsteady with her knee. She does not drive. Lives with her daughter and her boyfriend. She assists with house hold tasks and drives pt. Rn notified of need for cane. Pt will dc to home when discharged.
--- NOTE | 2019-03-24 12:49 | NUR ---
PT LAYING IN BED, ALERT, ORIENTED AND WATCHING TV. PT FEELS INFORMED AND KNOWS WHAT CARE PLAN IS TO THIS POINT. EXTENDED A BLESSING, WILL FOLLOW NEEDED
--- NOTE | 2019-03-24 14:12 | NUR ---
PT STATES HER ABD PAIN IS A 7/10 AND SHE WAS MEDICATED ORDERED. SHE DENIES ANY NAUSEA OR ANY OTHER PROBLEMS. PT RESTING IN HER BED WATCHING TV AND HAS SEVERAL VISITORS.
--- NOTE | 2019-03-24 14:58 | NUR ---
PT STATES HER PAIN IS CONTROLED AT A 4/10 AT THIS TIME.
--- NOTE | 2019-03-24 16:15 | NUR ---
Pt just finished taking a shower and returned to her bed. She states she feels good following the shower and that her abd pain is well controled at this time.
--- NOTE | 2019-03-24 17:32 | NUR ---
PT RESTING IN HER BED AND SHE STATES THAT HER ABD PAIN HAS AGAIN INCREASED TO A 7/10. KAREY MEDICATED ORDERED. SHE DENIES ANY NAUSEA.
--- NOTE | 2019-03-24 20:00 | NUR ---
RECEIVED REPORT AT 1900, FOUND PT IN BED WITH FAMILY AT BEDSIDE. PT HAD NO NEEDS AT THAT TIME.
--- NOTE | 2019-03-24 20:30 | NUR ---
PAIN AT THIS TIME IS 7/10. ALL LOBES ARE CLEAR, ABD SOUNDS ARE PRESENT WITH PAIN IN THE UPPER MIDDLE OF ABDOMEN AND INTERMITTEN PAIN ON HER RIGHT SIDE OF THE ABDOMEN. NO PERIPHERAL EDEMA NOTED, OVERALL STRENGTH +5. WILL CONTINUE TO MONITOR.
--- NOTE | 2019-03-24 23:57 | NUR ---
PT IS SLEEPING AT THIS TIME.
--- NOTE | 2019-03-25 02:03 | NUR ---
NO CHANGES NOTED WITH SECOND ASSESSMENT. PAIN AT THIS TIME 09/16. PT DOES WANT TO WAIT FOR PAIN MEDICATION. NO NEW CONCERNS NOTED.
--- NOTE | 2019-03-25 04:37 | NUR ---
PT NEEDED PRN PAIN MEDICATION FOR PAIN 10/17. ASSISTED PT ALS TO BATHROOM. NEW IV SITE STARTED.
--- NOTE | 2019-03-25 06:22 | NUR ---
AT START OF SHIFT PAIN CONTROL WAS A BIT AN ISSUE. BY THE 3RD DOSE OF MORPHINE IV 4MG, HER PAIN WAS FINALLY CONTROLLED. SINCE ARRIVAL ON FLOOR, PT HAS NOT NEEDED SUCH A LARGE AMOUND OF PRN PAIN MEDICATION I BELIEVE. PT HAS DENIED NAUSEA ALL SHIFT SO FAR. ABD SOUNDS ARE PRESENT, ABD IS SOFT BUT TENDER TO TOUCH, PAIN IS IN THE UPPER MIDDLE AREA OF HER ABD AND SOMETIMES ON HER RIGHT SIDE. ALL LOBES ARE CLEAR AND NO PERIPHERAL EDEMA WAS NOTED PT HAS GLAUCOMA AND TAKES LATANOPROST EYE DROPS AT HOME. PT ALSO USES TRIAMCINO ACETONIDE CREAM AT HOME FOR HER PSORIASIS ON BOTH LOWER LEGS. PERHAPS IF PT WILL BE HOSPITALIZED FOR A BIT LONGER, FAMILY COULD BRING IN HER MEDICATIONS FROM HOME.
--- NOTE | 2019-03-25 07:40 | NUR ---
PATIENT RESTING IN BED. SETS UP BATHROOM FOR SHOWER. CALL LIGHT WITHIN REACH. NO OTHER NEEDS AT THIS TIME
--- NOTE | 2019-03-25 08:04 | NUR ---
PT AWAKE, ALERT AND ORIENTED X4. PT ON RA, RESP EVEN AND NON LABORED. PT REPORTS PAIN LEVEL OF 6/10 IN ABD; MORPHINE 4MG IVP ADMIN AT THIS TIME. PT DENIES NAUSEA AT THIS TIME. ASSISTED PT TO BR AND BACK TO BED; MUKUL WELL 1P STANDBY ASSIST. NO FURTHER NEEDS AT THIS TIME. CALL LIGHT WITHIN REACH.
--- NOTE | 2019-03-25 10:11 | NUR ---
PATIENT RESTING IN BED. VITAL SIGNS AND I&O DONE. CALL LIGHT WITHIN REACH. NO OTHER NEEDS AT THIS TIME
--- NOTE | 2019-03-25 13:42 | NUR ---
PATIENT RESTING IN BED. VITAL SIGNS AND I&O DONE. CALL LIGHT WITHIN REACH. NO OTHER NEEDS AT THIS TIME
--- NOTE | 2019-03-25 15:46 | NUR ---
PT SITTING UP IN BED VISITING WITH FAMILY MEMBER. PT TOLERATING CLEAR LIQUIDS WELL. ORDERED SOUP FOR PT FOR DINNER. PT REPORTS IMPROVED ABD PAIN. PERSONAL SUPPLIES AND CALL LIGHT WIHTIN REACH.
--- NOTE | 2019-03-25 17:10 | NUR ---
PATIENT RESTING IN BED. DAUGHTER IN ROOM. VITAL SIGNS AND I&O DONE. CALL LIGHT WITHIN REACH. NO OTHER NEEDS AT THIS TIME
--- NOTE | 2019-03-25 20:00 | NUR ---
RECEIVED REPORT AT 1900, FOUND PT AWAKE IN BED WITH FAMILY AT BEDSIDE. PT HAD NO NEEDS OR CONCERNS AT THAT TIME.
--- NOTE | 2019-03-25 21:38 | NUR ---
VITALS AND I&OS DONE AND CHARTED. FRESH ICE WATER GIVEN. BEDSIDE TABLE AND CALL LIGHT IN REACH.
--- NOTE | 2019-03-25 21:44 | NUR ---
PT IS DOING WELL TONIGHT. PAIN IS CONTROLLED SO FAR. PT DENIED NAUSEA. ABD SOUNDS ARE PRESENT AND ABD IS SOFT AN NON -TENEDER TO TOUCH. NO REPIRATORY ISSUES NOTED. NO PERIPHERAL EDEMA NOTED. WILL CONTINUE TO MONITOR. BG AT 2100 WAS 113, NO INSULIN WAS GIVEN.
--- NOTE | 2019-03-25 23:00 | NUR ---
PT IS SLEEPING AT THIS TIME. SO FAR PT HAS NOT NEEDED ANY PRN PAIN MEDICATION. NO NEW CONCERNS NOTED AT THIS TIME.
--- NOTE | 2019-03-25 23:52 | NUR ---
ASSISTED PT TO BATHROOM. STILL NO PAIN MEDICATION HAS BEEN NEEDED.
--- NOTE | 2019-03-26 00:58 | NUR ---
PT IS SLEEPING AT THIS TIME.
--- NOTE | 2019-03-26 02:28 | NUR ---
ASSISTED PT TO BATHROOM. PT HAS DIARRHEA X2 SO FAR THIS SHIFT. ABDOMEN IS MUCH LESS DISTENDED AND NON-TENDER TO TOUCH AND SOFT WELL. BOWEL TONES ARE HYPERACTIVE. STILL NO NEED FOR PRN PAIN MEDICATION SO FAR. NO OTHER CONCERNS NOTED SO FAR.
--- NOTE | 2019-03-26 04:00 | NUR ---
PT IS SLEEPING AT THIS TIME.
--- NOTE | 2019-03-26 08:00 | NUR ---
PATIENT RESTING IN THE BED. ROOM IS CLEANED. CALL LIGHT IN REACH. NO FURTHER NEEDS AT THIS TIME.
[2019-03-26] MEDS ORDERED: GLUCOPHAGE1000 MG PO (11:40)
--- NOTE | 2019-03-26 11:55 | NUR ---
PT FEELING "WELL" TODAY. PT A&OX4, ON RA, RESP EVEN AND NON LABORED. PT TOLERATED DIET WELL. NO NEEDS AT THIS TIME. PERSONAL SUPPLIES AND CALL LIGHT WITHIN REACH.
== END 2019-03-26 13:00 | disposition home or self-care (01) | DRG 440 ==
LOC: ED 21:20 → MS 21:22
PROVIDERS: ADMIT Internal Medicine
DX: K86.1 Other chronic pancreatitis (principal); E11.9 Type 2 diabetes mellitus without complications; K21.9 Gastro-esophageal reflux disease without esophagitis; F41.9 Anxiety disorder, unspecified; H40.9 Unspecified glaucoma; Z79.899 Other long term (current) drug therapy; Z79.84 Long term (current) use of oral hypoglycemic drugs
CPT/HCPCS: 36415; 80053; 81001; 83690; 85025; 87088; 96374; 96375; 96376; 99284-25; G0378; J1170; J1650; J1815; J2270; J2405; J7030; J7121

== ENCOUNTER 2020-01-23 12:48 | Inpatient (IN) | payer OTHER ==
[~2020-01-23] VITALS: Ht 160 cm; Wt 71.7 kg
[~2020-01-23 12:48] MED LIST changes: +B-121000 MC2 PO; +LATANOPROST2.5 ML OU; +PEPCID40 MG PO; -RANITIDINE HCL75 MG PO
--- OUTSIDE RECORDS SUMMARY | 2020-01-23 14:16 | XMS ---
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 Antonio has no Care Guidelines for this patient. [place] VISIT COUNT (12 MO.) 2 MARY Pedraza TOTAL 2 NOTE: Visits indicate total known visits. 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
--- NOTE | 2020-01-23 17:25 | NUR ---
New admit to the floor. Pt alert and oriented x4. Pt reports nausea, recent dose of zofran in ED given. Admin dilaudid 0.5mg IVP for reports of 8/10 abd pain. Vital signs stable. Pt NPO, mouth swabs provided. Oriented pt to room and call light. Pt lying in bed, bed in lowest position, call light within reach, son at bedside.
--- NOTE | 2020-01-23 17:40 | NUR ---
PHENARGAN 12.5MG IN 20 ML SALINE SET TO PUMP.
--- NOTE | 2020-01-23 17:53 | NUR ---
PATIENT RESTING IN BED. RN AND SON IN ROOM. VITAL SIGNS DONE BY RN. I&O DONE. CALL LIGHT WITHIN REACH. NO OTHER NEEDS AT THIS TIME
--- NOTE | 2020-01-23 19:52 | NUR ---
PATIENT HAVING 7/10 ABD PAIN AND SOME NAUSEA. INFORMED PATIENT I WOULD BE BACK SHORTLY WITH MEDS FOR BOTH. PATIENT VERBALIZED UNDERSTANDING. CALL LIGHT IN REACH.
--- NOTE | 2020-01-23 20:22 | NUR ---
PATIENT GIVEN 4MG IV ZOFRAN AND 1MG IV DILUADID FOR NAUSEA AND 8/10 UPPER GI PAIN. CC=[id number] SO NO SLIDING SCALE INSULIN. PATIENT KIANNA GOTTEN UP AND VOIDED. PATIENT'S SON SPENDING THE NIGHT AND IS AT BEDSIDE. NO OTHER NEEDS AT THIS TIME. CALL LIGHT IN REACH.
--- NOTE | 2020-01-23 22:10 | NUR ---
PATIENT'S NAUSEA IS GONE, BUT PAIN ONLY WENT DOWN TO 6/10 AND BACK UP TO 8/10 AND ANOTHER 1MG IV DILAUDID GIVEN. PATIENT IS GOING TO TRY AND GO TO SLEEP NOW, SON AT BEDSIDE, AND CALL LIGHT IN REACH.
--- NOTE | 2020-01-23 23:02 | NUR ---
PATIENT SAYS SHE IS DOING OK AND IS TALKING WITH HER SON. PATIENT SAID SHE DID FALL ASLEEP FOR A SHORT TIME. PATIENT GOING TO TRY AND GO BACK TO SLEEP. CALL LIGHT IN REACH.
--- NOTE | 2020-01-24 00:32 | NUR ---
CHECKED ON PATIENT AND SHE WAS AWAKE UPPER ABD PAIN 7/10 AND 1MG IV DILUADID GIVEN AND PATIENT IS GOING TO TRY AND GET SOME MORE SLEEP. SON REMAINS AT BEDSIDE. CALL LIGHT IN REACH.
--- NOTE | 2020-01-24 02:32 | NUR ---
PATIENT'S VS ARE STABLE, PAIN IS 7/10 IN THE ABD AGAIN AND 1MG IV DILUADID GIVEN. PATIENT TRYING TO GO BACK TO SLEEP. CALL LIGHT IN REACH. ORAL SWAB GIVEN.
--- NOTE | 2020-01-24 02:33 | NUR ---
V/S AND I&O AND BLOOD SUGAR CHECKED DONE AND CHARTED.
--- NOTE | 2020-01-24 04:00 | NUR ---
PATIENT RESTING QUIETLY, EYES CLOSED, RESPIRATIONS EVEN, CALL LIGHT IN REACH. SON SLEEPING ON THE COUCH.
--- NOTE | 2020-01-24 05:33 | NUR ---
PATIENT UP TO THE BATHROOM WITH SBA AND BACK INTO BED. 11/16 ABD PAIN AND 1MG IV DILUADID GIVEN AND PATIENT GOING TO TRY AND GO BACK TO SLEEP. PATIENT THINKS SHE GOT ABOUT 4 HOURS TOTAL SLEEP BETWEEN PAIN MEDS. SON REMAINS AT BEDSIDE CALL LIGHT IN REACH.
--- NOTE | 2020-01-24 05:44 | NUR ---
V/S AND I&O TAKEN AND CHARTED.
--- NOTE | 2020-01-24 05:48 | NUR ---
PATIENT HAS HAD 6 DOSES OF 1MG DILAUDID FOR 7-12/17 ABD PAIN THROUGH THE NIGHT, PATIENT FEELS LIKE SHE HAS GOTTEN ABOUT 4 HOURS SLEEP IN TOTAL. IV RUNNING AND WNL. VS STABLE. PATIENT GOES TO SLEEP WHEN PAIN GETS DOWN TO ABOUT A 6 AND AWAKENS WHEN AT A 7-8. RESTING AT THIS TIME. FAIRLY INDEPENDENT IN ROOM, BUT SON IS HELPING URINATING FINE. CALL LIGHT IN REACH AND PATIENT TRYING TO GET SOME MORE SLEEP.
--- NOTE | 2020-01-24 07:10 | NUR ---
Recieved report from Fiona Wilson RN. Patient lying in bed, family at bedside. Denies needs at this time. Call light in reach, bed rails up X2.
--- NOTE | 2020-01-24 09:43 | NUR ---
Assessment completed. Pain currently 7/10 at this time. Call light in reach. AM medications and PRN medications given as prescribed. Denies other needs at this time. Denies other needs. IV site charted in right ankle, IV site in RFA. Documentation corrected.
--- NOTE | 2020-01-24 09:46 | NUR ---
PATIENT AWAKE IN BED, FAMILY ASLEEP ON COUCH. VITALS AND I&OS CHARTED. NO OTHER NEEDS AT THIS ITME
--- NOTE | 2020-01-24 11:10 | NUR ---
Lying in bed, head of bed slightly elevated. Call light in reach, states pain is tolerable at this time. IV fluids continue infusing. Denies other needs at this time. Bed rails up X2.
--- NOTE | 2020-01-24 11:30 | NUR ---
Spoke with Amanda. She states she and her daughter live at [place] in a 1 story home. She has problems with her R knee following surgery and uses a cane on uneven ground. She does not drive, but her daughter does. She also uses [facility] free transport and has the number in her phone. She denies needs to go home. Daughter is in the room. Denies financial issues.
--- NOTE | 2020-01-24 12:29 | NUR ---
IV fluids decreased to 100 ml/hour. Patient sitting up in bed, talking on the phone at this time. Family member at bedside.
--- NOTE | 2020-01-24 13:51 | NUR ---
PATIENT UP IN BED, FAMILY MEMBER IN ROOM. PATIENT HAS CLEAR TRAY IN FRONT OF HER. VITALS AND I&OS CHARTED. CALL LIGHT IN REACH
--- NOTE | 2020-01-24 14:35 | NUR ---
PT ALERT, OREINTED AND FRIEND KAELYN AT BS. PT STATED SHE FEELS MUCH BETTER. NAUSEA NO AN ISSUE AT THE MOMENT AD PAIN IS LESS. GAVE BLESSING AND LEFT A G.POST. WILL FOLLOW
--- NOTE | 2020-01-24 15:24 | NUR ---
Patient sitting up in bed. States clear liquids are sitting well as long as she takes them in slowly. Pain tolerable 6/10 at this time. Assessment completed. Denies other needs at this time.
--- NOTE | 2020-01-24 15:55 | NUR ---
Returns to bed from bathroom with standby assist. Call light in reach, denies needs at this time.
--- NOTE | 2020-01-24 17:11 | NUR ---
Head of bed elevated. States abdominal pain is beginning to worsen. PRN medication given as prescribed. Denies other needs.
--- NOTE | 2020-01-24 19:33 | NUR ---
up to br, voided, 1pa, back to bed, tolerated well, c/o 7/10 abd pain, medicated Oxycontin 5mg po. just completed eating dinner will do accuchecks at 22-2300
--- NOTE | 2020-01-24 20:49 | NUR ---
Awake, watching tv, no c/o pain. CBG 98, given 12oz apple juice and apple sauce. will order a sandwich box. IVF infusing w/o problems. coop, call light at bedside, vodiing QS, tolerating fluids well
--- NOTE | 2020-01-24 23:26 | NUR ---
RESTING, NO DISTRESS, ON ROOM AIR, IVF INFUSING, MALE FAMILY MEMBER ROOMING IN
--- NOTE | 2020-01-25 00:19 | NUR ---
resting, eyes closed, on room air, IVF infusing, no distress. call light and fluids at bedside. Family member rooming in
--- NOTE | 2020-01-25 01:24 | NUR ---
c/o 6 abd pain, medicated with Oxycodone 5mg po. Up to br, voided, back to bed, tolerated well, voiding large amounts of clear urine,. tolerating clear liquids well, no c/o n/v. IVF infusing, family member at bedside
--- NOTE | 2020-01-25 03:36 | NUR ---
resting, eyes closed, no s/sx pain, IVF infusing. call light and fluids at bedside, on clear liquids
--- NOTE | 2020-01-25 05:04 | NUR ---
PT HAS SLEPT OFF AND ON, WAS MEDICATED X2 WITH OXYCODONE 5MG PER ABD PAIN, EFFECTIVE. ON ROOM AIR, INDPENDENT/SBA IN ROOM, IVF INFUSING W/O PROBLEMS, VOIDING QS. CBG WAS 86, JUICE, APPLESAUCE GIVEN, DENIES S/SX HYPOGLYCEMIA, ALERT AND ORIENTED. TOLERATING CLEAR LIQUIDS WELL, NO N/V, FAMILY AT BEDSIDE
--- NOTE | 2020-01-25 06:31 | NUR ---
awake, coop, up to br, 1sba, voided plus attends was slightly wet, changed, back to bed, tolerated well, no c/o pain, IVF infusing, tolerating clears
--- NOTE | 2020-01-25 08:58 | NUR ---
Lying in bed, eyes closed. Wakes to voice. States pain is tolerable at this time. Denies needs. Assessment completed. AM medication given, tolerates well. Call light in reach, bed rails up X2, family member at bedside.
[2020-01-25] MEDS ORDERED: CERAVE453 GM TOP (09:30)
[2020-01-25] MEDS ORDERED: MAGOX 400400 MG PO (09:31)
[2020-01-25] MEDS ORDERED: CALCIUM + VITA1 EACH PO (09:33)
[2020-01-25] MEDS ORDERED: MELATONIN3 MG PO (09:41)
--- NOTE | 2020-01-25 10:19 | NUR ---
MED REC COMPLETE
[2020-01-25] MEDS ORDERED: OXYCODONE HCL5 MG PO (12:04)
[2020-01-25] MEDS ORDERED: ONDANSETRON ODT4 MG SL (12:05)
--- NOTE | 2020-01-25 12:13 | NUR ---
SET PATIENT UP FOR A SHOWER SOMETIME TODAY. ALSO DID HER BREAKFAST AND LUNCH BLOOD SUGAR CHECK.
== END 2020-01-25 13:35 | disposition home or self-care (01) | DRG 440 ==
LOC: ED 12:48 → MS 16:02
PROVIDERS: ADMIT Student in an Organized Health Care Education/Training Program; ATTEND Student in an Organized Health Care Education/Training Program
DX: K85.00 Idiopathic acute pancreatitis without necrosis or infection (principal); Z20.828 Contact with and (suspected) exposure to other viral communicable diseases; K21.9 Gastro-esophageal reflux disease without esophagitis; E11.9 Type 2 diabetes mellitus without complications; F10.11 Alcohol abuse, in remission; Z79.899 Other long term (current) drug therapy; Z79.84 Long term (current) use of oral hypoglycemic drugs
CPT/HCPCS: 36415; 80048; 80053; 81001; 83690; 83735; 84703; 85025; 90686; 96374; 96375; 96376; 99284-25; C9113; C9803; J1170; J1650; J2405; J2550; J7030; J7121

== ENCOUNTER 2020-03-20 11:06 | Observation (INO) | payer OTHER ==
[~2020-03-20] VITALS: Ht 160 cm; Wt 67.0 kg
[~2020-03-20 11:06] MED LIST changes: +CERAVE453 GM TOP; +IBU600 MG PO; +MAGOX 400400 MG PO; +MELATONIN3 MG PO; +ONDANSETRON ODT4 MG SL
--- OUTSIDE RECORDS SUMMARY | 2020-03-20 12:18 | XMS ---
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 Antonio has no Care Guidelines for this patient. [place] VISIT COUNT (12 MO.) 3 MARY Pedraza TOTAL 3 NOTE: Visits indicate total known visits. 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 - Type 2 diabetes mellitus without complications - Acute pancreatitis without necrosis or infection, unspecified - Alcohol abuse, in remission - Gastro-esophageal reflux disease without esophagitis - Idiopathic acute pancreatitis without necrosis or infection - Contact with and (suspected) exposure to other viral communicable diseases - Other intermediate card tender (current) drug therapy 03/24/2019 09:14 M[facility] TYPE: Medical Surgical COMPLAINT: - PANCREATITIS DIAGNOSES: - Gastro-esophageal reflux disease without esophagitis - [facility] (current) use of oral hypoglycemic drugs - Anxiety disorder, unspecified - Unspecified glaucoma - Type 2 diabetes mellitus without complications - Other custodial (current) drug therapy - Other chronic pancreatitis [email or web address]
--- NOTE | 2020-03-20 16:12 | NUR ---
New patient to the floor. Pt arrived alert and oriented x4. Pt on room air, respirations even and non labored. Oxycodone 5mg po given with a sip of water for reported 8/10 abd pain. Phenergan 12.5mg IVP admin for nausea via IV pump with 20ml saline. Oriented patient to room and call light. Daughter at bedside. Personal supplies and call light within reach. Pt verbalized she will alert staff if she has any needs.
--- NOTE | 2020-03-20 19:33 | NUR ---
REPORT RECEIVED FROM GARCÍA BARBOSA. PATIENT AWAKE IN BED, A+O. MADE PLAN WITH PT FOR PRN PAIN MEDICATIONS. WARM BLANKET PROVIDED, CALL LIGHT IN REACH.
--- NOTE | 2020-03-20 20:02 | NUR ---
PT REPORTS PAIN OF 7/10 ABDOMEN. PRN OXYCODONE ADMINISTERED. FRESH WATER REFILLED PER PT REQUEST. CALL LIGHT WITHIN REACH
--- NOTE | 2020-03-20 21:50 | NUR ---
ASSESSMENT COMPLETE, CBG CHECKED, BS WITHIN PARAMETERS. PT AMBULATED TO BR TO VOID, TOLERATED WELL. IVF INFUSING WNL. ASSESSMENT COMPLETE. PT REPORTS PAIN "DOWN TO 7/10", DENIES FURTHER INTERVENTIONS AT THIS TIME. REPOSITIONED IN BED, CALL LIGHT IN REACH, NO OTHER NEEDS AT THIS TIME. WILL CONTINUE TO MONITOR.
--- NOTE | 2020-03-21 00:51 | NUR ---
ROUNDED ON PATIENT, LAYING IN BED WITH EYES CLOSED, LIGHTS OFF. BREATHING EVEN AND UNLABORED. CALL LIGHT IN REACH, NO APPARENT NEEDS AT THIS TIME. WILL CONTINUE TO MONITOR
--- NOTE | 2020-03-21 02:19 | NUR ---
VITALS AND I&OS DONE AND CHARTED. FRESH ICE WATER GIVEN. GARBAGES EMPTIED. HELPED PT TO THE BATHROOM AND BACK TO BED. BEDSIDE TABLE AND CALL LIGHT IN REACH. PT NEEDS NOTHING MORE AT THIS TIME.
--- NOTE | 2020-03-21 02:23 | NUR ---
VITALS COMPLETE, ASSESSMENT COMPLETE. PT UP TO BR TO VOID. PT REQUESTS PRN PAIN MEDICATION FOR 7/10 PAIN, ADMINISTERED, SEE MAR. WARM BLANKET PROVIDED. IVF INFUSING WNL. CALL LIGHT IN REACH, STATES NO OTHER NEEDS AT THIS TIME, WILL CONTINUE TO MONITOR.
--- NOTE | 2020-03-21 02:26 | NUR ---
ROUNDED CHARGE. VSS. PRIMARY RN PADMAJA IN ROOM ADMINISTERING PRN PAIN MEDICATION. SBA TO RESTROOM WITH OPHTHALMIC TECHNICIAN AUGUST. NO CONCERNS AT THIS TIME.
--- NOTE | 2020-03-21 04:40 | NUR ---
ROUNDED ON PATIENT, LAYING IN BED WITH EYES CLOSED. IVF INFUSING WNL. BREATHING UNLABORED. NO APPARENT NEEDS. WILL CONTINUE TO MONITOR.
--- NOTE | 2020-03-21 07:07 | NUR ---
In room for morning shift report from Leeann BARBOSA. Report included: Pt had an uneventful evening, primary concern being pain control. RN reported that pts pain was minimally aided by oxycodone medication, and that the PRN dilaudid was better at lowering her pain. Pt needs prompting about severity of pain.
--- NOTE | 2020-03-21 07:50 | NUR ---
BLOOD SUGAR DUE. THIS RN TO ROOM. PT RESTING ON BACK WITH EYES CLOSED. PT AWAKENS TO VOICE AND MOVEMENT IN ROOM. PT REPORTS 7/10 PAIN AND REQUESTS PAIN MEDICATIONS. CBG TAKEN = 83. SMALL CUP OF CRANBERRY JUICE ORDERED FOR PT PER PTS REQUESTS. PT DENIES ADDITIONAL REQUESTS OR COMPLAINTS AT THIS TIME. CALL LIGHT ERWIN PETIT. PT WORKING ON PHONE.
--- NOTE | 2020-03-21 07:55 | NUR ---
In room for morning assessment and glucose check. Catherine BARBOSA at bedside, reports CBG of 83. Pt up to bathroom to void. Pt back to bed. IV draws and flushes with ease, IV fluids infusing. Pt sitting up in bed having clears breakfast tray. Pt reprots 11/16 pain, tx by Catherine BARBOSA with PRN meds. Pt assessment complete, see charting, VSS. Pt reports no further needs at this time. Side rails up, table and call light within reach.
--- NOTE | 2020-03-21 08:30 | NUR ---
Discussed in IDT. Call from Tami at [facility] for update. 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
--- NOTE | 2020-03-21 09:04 | NUR ---
PT UP FOR SHOWER WITH OSVALDO ESTRELLA. IV SALINE LOCKED FOR SHOWER. ALCOHOL CAPS APPLIED. PT WORKING WITH OSVALDO PINEDA. PT REPORTS PAIN IS IMPROVING, NOW 10/17. NO ADDITIONAL REQUESTS OR COMPLAINTS. CALL SOLEDAD PETIT.
--- NOTE | 2020-03-21 09:29 | NUR ---
PT FINISHED WITH SHOWER. IV FLUIDS RESUMED. PT UP TO CHAIR. PT DENIES ADDITIONAL REQUSTS OR COMPLAINTS AT THIS TIME. CALL LIGHT WITHIN REACH.
--- NOTE | 2020-03-21 10:20 | NUR ---
In room for rounding. Pt up to bathroom with SBA. Pt getting IV fluids infused as ordered. Pt reports 6/10 tolerable pain, and some nausea starting. Pt back to chair. Pt reports no other needs at this time. Pt in chair, table and call light within reach.
--- NOTE | 2020-03-21 10:37 | NUR ---
In room to address nausea. Pt had tried the alcohol swab scent tip and felt her nausea resolve after only a few inhales. Pt content without PRN antiemetic for now. Pt given warm blanket. Pt in chair, table and call light within reach.
--- NOTE | 2020-03-21 10:39 | NUR ---
REQUESTED MEDICAL RECORDS FROM [facility].
--- NOTE | 2020-03-21 10:51 | NUR ---
PATIENT TOOK A SHOWER THIS MORNING. CHANGED HER BED LINENS. GOT HER SOME MORE BLANKETS. GOT HER SOME MORE ICE WATER AND APPLE JUICE. PATIENT IS SITTING UP IN HER CHAIR.
[2020-03-21] MEDS ORDERED: TRIAMCINOLONE A15 G1 TOP (12:02)
--- NOTE | 2020-03-21 12:02 | NUR ---
MED REC COMPLETE
--- NOTE | 2020-03-21 12:30 | NUR ---
In room for rounding. Pt was up to chair and had finished her lunch. Pt to bathroom to void with SBA. Pt able to void clear light yellow urine. Is&Os charted. Pt returned to bed, repositioned to comfort, table and call light within reach. Pain 7, PRN pain meds given, see MAR. Pt denies nausea at this time.
--- NOTE | 2020-03-21 12:44 | NUR ---
In room for PRN med pass. Pt in bed, reports 7/10 increasing pain. Pt given PRN med without difficulty. Pt reports no further needs at this time. Pt in bed, side rails up, table and call light within reach.
--- NOTE | 2020-03-21 14:21 | NUR ---
In room for pt care. Pt up to bathroom to void. Pt back to bed, given warm blanket. Pts VSS, and pt reports 5/10 tolerable pain. Pt reports no further needs at this time. In bed, table and call light within reach.
--- NOTE | 2020-03-21 15:05 | NUR ---
In room for rounding. Pt reports 5/10 tolerable pain and no nausea at this time. Pt in bed, side rails up, table and call light within reach.
--- NOTE | 2020-03-21 15:17 | NUR ---
Spoke with Amanda for CM assessment. SHe live [address] with her daughter and her family. Daughter does house hold chores and shopping. Pt denies needs, plans on dc to home when symptoms have resolved and cleared for dc by
--- NOTE | 2020-03-21 16:40 | NUR ---
In room for rounding. Pt up to bathroom to void. Pt back to bed. Pt reports 4-5/10 pain and no nausea at this time. Pt in bed, positioned to comfort, side rails up, table and call light within reach.
--- NOTE | 2020-03-21 18:48 | NUR ---
PATIENT ASKED FOR A WARM BLANKET AND MORE ICE WATER.
--- NOTE | 2020-03-21 18:51 | NUR ---
In room for rounding. Pt reports 5/10 tolerable pain and no nausea at this time. Pt up to bathroom to void. Pt back to bed. Pt reports no further needs at this time. Pt in bed, side rails up, table and call light within reach.
--- NOTE | 2020-03-21 20:01 | NUR ---
in rm with rn to get vitals, pt up to void, bk to bed, juice and ice water provided, no further needs at this time
--- NOTE | 2020-03-21 20:36 | NUR ---
Awake, alert and oriented. Up to BR, voided QS, back to bed SBA, on rooom air. IVF infusing w/o problems, c/o 6/10 abd pain, medicated with 10mg Oxycodone. toleratiang fluids/diet well, no c/o n/v. call light at bedside
--- NOTE | 2020-03-21 22:38 | NUR ---
AWAKE WATCHING TV, NO FURTHER C/O PAIN STATED
--- NOTE | 2020-03-22 00:49 | NUR ---
RESTING, EYES CLOSED, ON ROOM AIR, IVF INFUSING, CALL LIGHT AND FLUIDS AT BEDSIDE
--- NOTE | 2020-03-22 03:17 | NUR ---
RESTING, ON ROOM AIR, NO FACIAL S/SX DISTRESS, IVF INFUSING, CALL LIGHT INFUSING W/O PROBLEMS
--- NOTE | 2020-03-22 04:37 | NUR ---
HAS SLEPT MOST OF THIS SHIFT. ON ROOM AIR, WAS MEDICATED WITH OXYCODONE PER C/O ABD PAIN, EFFECTIVE. IVF INFUSING, UP TO BR W MINIMUM OF ASSIST, VOIDING QS, NO EMESIS, TOLERATING DIET AND FLUIDS WELL. USING CALL LIGHT
--- NOTE | 2020-03-22 05:18 | NUR ---
UP TO BR, VOIDED QS, BACK TO BED TOLERATED WELL, ON ROOM AIR, C/O 4/10 ABD BURNING/CRAMPING, MEDICATED WITH OXYCODONE 5MG AND TYLENOL 650MG PO. TOLERATING FLUIDS WELL, NO N/V.
--- NOTE | 2020-03-22 05:22 | NUR ---
pts VS AND I&OS COMPLETE WITH RN BUD. pt GIVEN FRESH ICE WATER, AND TOILETED SELF. NOTHING FURTHER NEEDED AT THIS TIME.
--- NOTE | 2020-03-22 07:08 | NUR ---
To room for shift report from Kathleen BARBOSA. Pt report included: Pt moved very independently in the room throughout the night, using her call light for a SBA appropriately. Pt is voiding quantity sufficient and had a BM yesterday. Pt got some PRN oxycodone "sometime this morning" for pain but had an otherwise uneventful evening. Pt tolerating regular diet well, no N/V throughout the evening. Pt currently lying in bed, eyes closed, breathing even and unlabored, table and call light within reach.
--- NOTE | 2020-03-22 08:02 | PATH ---
[facility] [address], [place] [address] Signed ORDERING PHYSICIAN: Cortes Villafuerte MD PATIENT NAME: KAREY MENDIETA GENDER: F : 1965 Prior History: DATE CASE NUM ADEQUACY DIAGNOSIS HPV RESULTS PHYSICIAN The 5 most recent reports are included. This history does not include results of pap smears performed at another laboratory. SPECIMEN(S): MOLECULAR PATHOLOGY RESULTS: SARS-CoV-2 Not Detected ADDITIONAL NOTES.: The Dundee Fusion SARS-CoV-2 Assay is a multiplex real-time PCR (RT-PCR) in vitro diagnostic test intended for the qualitative detection of RNA from SARS-CoV-2 from individuals who meet COVID-19 clinical and/or epidemiological criteria. In general, SARS-CoV-2 RNA can be detected during the acute phase of infection. Positive results indicate the presence of SARS-CoV-2 RNA. Clinical correlation with patient history and other diagnostic information is necessary to determine patient infection status. Positive results do not rule out bacterial infection or co-infection with other viruses. Negative results do not preclude SARS-CoV-2 infection and should not be used as the sole basis for patient management decisions. Negative results must be combined with other clinical observations, patient history, and epidemiological information. The Dundee Fusion SARS-CoV-2 Assay is not yet approved or cleared by the [place] FDA. When there are no FDA-approved or cleared tests available, and other criteria are met, FDA can make tests available under an emergency access mechanism called an Emergency Use Authorization (EUA). The EUA for this test is supported by the Capsule Machine Operator of Health and Human Service's (HHS's) declaration that circumstances exist to justify the emergency use of in vitro diagnostics for the detection and/or diagnosis of the virus that causes COVID-19. This EUA will remain in effect for the duration of the COVID-19 declaration justifying emergency of IVDs, unless it is terminated or PATIENT NAME: KAREY MENDIETA PATHOLOGY DATE OF : 67 REPORT #: [id number] PHYSICIAN: DANIE PATHOLOGY PCP: DAVONTE VELIZ MD REPORT IS CONFIDENTIAL AND NOT TO BE RELEASED WITHOUT AUTHORIZATION [facility] [address] [facility] [place], [place] [address] Signed revoked by FDA, after which the test may no longer be used. The Dundee Fusion SARS-CoV-2 Assay is for use only under EUA in US laboratories certified under the Clinical Laboratory Improvement Amendments of 1988 (CLIA) to perform high complexity tests. [facility] is certified under CLIA to perform high complexity clinical laboratory testing. PERFORMING LABORATORY.: Molecular testing was performed by [facility] [id number] [place] [address] (Display Maker: Kamar Candelario D.O.; CLIA#: [id number]) Diagnostician: System Interface Pathologist Electronically Signed 03/22/2020 Copies: ~ PATIENT NAME: KAREY MENDIETA PATHOLOGY DATE OF : 67 REPORT #: [id number] PHYSICIAN: DANIE CHIU PCP: DAVONTE VELIZ MD REPORT IS CONFIDENTIAL AND NOT TO BE RELEASED WITHOUT AUTHORIZATION
[2020-03-22] MEDS ORDERED: OXYCODONE HCL5 MG PO (08:55)
[2020-03-22] MEDS ORDERED: ZOFRAN4 MG PO (08:56)
--- NOTE | 2020-03-22 09:00 | NUR ---
CALL LIGHT ANSWERED. IV PUMP ALARMING. SL AT THIS TIME. SBA TO RESTROOM FOR SHOWER. IV SITE IN GLOVE FOR SHOWER. INSTRUCTED TO USE CALL LIGHT IF ANY NEEDS.
--- NOTE | 2020-03-22 10:08 | NUR ---
PATIENT AWAKE IN CHAIR. VITALS AND I&OS CHARTED, BREAKFAST ON TABLE AT SIDE. HOSPITAL IPAD PROVIDED FOR HOMEWORK USE, USED URINAL IN BR. CALL LIGHT IN REACH
== END 2020-03-22 10:05 | disposition home or self-care (01) ==
LOC: ED 11:06 → MS 11:07
PROVIDERS: ADMIT Student in an Organized Health Care Education/Training Program; ATTEND Student in an Organized Health Care Education/Training Program
DX: K85.80 Other acute pancreatitis without necrosis or infection (principal); E11.9 Type 2 diabetes mellitus without complications; F41.9 Anxiety disorder, unspecified; K21.9 Gastro-esophageal reflux disease without esophagitis; Z91.030 Bee allergy status; Z79.84 Long term (current) use of oral hypoglycemic drugs; Z79.899 Other long term (current) drug therapy; Z90.49 Acquired absence of other specified parts of digestive tract; Z20.828 Contact with and (suspected) exposure to other viral communicable diseases
CPT/HCPCS: 36415; 80048; 80053; 81001; 83690; 83735; 85025; 96374; 96375; 96376; 99284-25; C9803; G0378; G0480; J1170; J2405; J2550; J7030; J7121; U0003

== ENCOUNTER 2020-04-09 13:40 | Observation (INO) | payer OTHER ==
[~2020-04-09] VITALS: Ht 160 cm; Wt 66.3 kg
[~2020-04-09 13:40] MED LIST changes: +TRIAMCINOLONE A15 G1 TOP; +ZOFRAN4 MG PO
--- OUTSIDE RECORDS SUMMARY | 2020-04-09 13:44 | XMS ---
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 Care History Medical/Surgical 03/21/2020 [facility] - PATIENT IS [facility] ELIGIBLE, \T\middot;\T\nbsp; PLEASE REFER PATIENT TO [facility] FOR NON EMERGENT MEDICAL NEEDS. \T\middot;\T\nbsp; [facility] CAN SEE PATIENTS SAME DAY FOR APTS IF PATIENT CALLS FIRST THING IN THE MORNING. E.D. VISIT COUNT (12 MO.) 3 [facility] TOTAL 3 NOTE: Visits indicate total known visits. ED/UCC VISIT TRACKING (12 MO.) 04/09/2020 13:41 [facility] TYPE: Emergency COMPLAINT: - ABDOMINAL PAIN 03/20/2020 11:06 [facility] TYPE: Emergency COMPLAINT: - ABDOMINAL PAIN 01/23/2020 12:48 [facility] TYPE: Emergency COMPLAINT: - ABD PAIN INPATIENT VISIT TRACKING (12 MO.) 03/20/2020 11:07 [facility] TYPE: Observation COMPLAINT: - PANCREATITIS DIAGNOSES: - Other acute pancreatitis without necrosis or infection - Acquired absence of other specified parts of digestive tract - Contact with and (suspected) exposure to other viral communicable diseases - Other buttermaker helper (current) drug therapy - Epigastric pain - Anxiety disorder, unspecified - half-way (current) use of oral hypoglycemic drugs - Gastro-esophageal reflux disease without esophagitis - Type 2 diabetes mellitus without complications - Bee allergy status 01/23/2020 16:02 [facility] TYPE: Medical Surgical COMPLAINT: - PANCREATITIS DIAGNOSES: - roasterman (current) use of oral hypoglycemic drugs - Type 2 diabetes mellitus without complications - Acute pancreatitis without necrosis or infection, unspecified - Alcohol abuse, in remission - Gastro-esophageal reflux disease without esophagitis - Idiopathic acute pancreatitis without necrosis or infection - Contact with and (suspected) exposure to other viral communicable diseases - Other buttermaker helper (current) drug therapy [email or web address]
--- NOTE | 2020-04-09 20:24 | NUR ---
PT TO ROOM 108 VIA WHEELCHAIR FROM ED WITH SENIOR MANAGER QUALITY ASSURANCE. PT ALERT AND ORIENTED. TO BR WITH MINIMAL SBA TO VOID. GAIT STEADY. BACK TO BED, UMKUL WELL. DENIES NAUSEA. REPORTS PAIN IS TOLERABLE AT THIS TIME. IVF STARTED PER ORDER. PT AWARE OF NPO STATUS. AIR ROUTE TRAFFIC CONTROLLER IN TO DO ADMISSION.
--- NOTE | 2020-04-09 20:25 | NUR ---
IN ROOM TO DO ADMISSION HX WITH PT. PT HAD OWN EYE DROPS FROM HOME THAT SHE STATES SHE TAKES AT BEDTIME DAILY. SHOWED THEM TO DR NUNEZ AND SHE SAID IT IS OK FOR THE PT TO TAKE THEM BUT HAVE PHARMACY VERIFY THEM. LEFT EYE DROPS IN PT'S KITS LIST IN A BAG WITH HER NAME ON THEM. PT DENIES NEEDS AT THIS TIME. CALL LIGHT IS CLOSE.
--- NOTE | 2020-04-09 21:00 | NUR ---
ASSESSMENT COMPLETE. SCHEDULED MEDS ADMINISTERED. PRN ADMINISTERED FOR 8/10 ABD PAIN AND NAUSEA. IVF INFUSING PER ORDER. BLOOD SUGAR WITHIN NORMAL RANGE, INSULIN HELD. PT ORIENTED TO ROOM AND NURSE CALL LIGHT. DENIES QUESTIONS OR CONCERNS. CALL LIGHT IN REACH.
--- NOTE | 2020-04-09 22:10 | NUR ---
PT CALLED FOR BEEPING IV, IT IS NOW INFUSING FINE WITH PILLOW UNDER HER ARM. SHE DENIES FURTHER NEEDS AND CALL LIGHT IS CLOSE.
--- NOTE | 2020-04-10 00:06 | NUR ---
CALL LIGHT ANSWERED. PT UP TO BR WITH MINIMAL ASSIST TO VOID. GAIT STEADY. BACK TO BED MUKUL WELL. PT REPORTS NAUSEA WITH SMALL AMOUNT OF EMESIS. REQUESTING PRN FOR ABD 12/17. ADMINISTERED PRN PER ORDER.
--- NOTE | 2020-04-10 03:13 | NUR ---
BLOOD SUGAR WITHIN DESIRED RANGE. SLIDING SCALE INSULIN HELD. PRN ADMINISTERED FOR 6/10 ABD PAIN AND NAUSEA. PT DENIES EMESIS. UP TO BR WITH SBA. GAIT STEADY. BACK TO BED, MUKUL WELL. WARM BLANKET PROVIDED. PT DENIES FURTHER NEEDS. CALL LIGHT IN REACH.
--- NOTE | 2020-04-10 06:07 | NUR ---
VS AND I&O COMPLETE. AM LABS DRAWN PER UNIT POLICY. PRN ADMINISTERED FOR 6/10 ABD PAIN. PT C/O NAUSEA WITH ABOUT 50 ML GREEN EMESIS. ICE PACK AND COOL WASHCLOTH PROVIDED. UP TO BR WITH SBA TO VOID 200 ML CLEAR YELLOW URINE. GAIT STEADY. BACK TO BED, MUKUL WELL.
--- NOTE | 2020-04-10 09:05 | NUR ---
PT AWAKE IN BED. REPORTS SHE SLEPT GOOD. C/O OF 6/10 EPIGASTRIC PAIN R/T PANCREATITIS. SHE HAS BEEN GETTING DILAUDID 1 MG APPROX Q2H. SAYS SHE HAD AN EPISODE OF EMESIS AT 0600, RN VISUALIZED APPROX 100 MLS OF GREEN BILE LIKE EMESIS. PROTONIX IV GIVEN. BG 125, WITHIN PARAMETERS. PT REMAINS NPO. LR INFUSING AT 125 MLS/HR. ASSESSMENT COMPLETE. CALL LIGHT IN HAND. WILL RETURN WITH PAIN MEDS AND ANTI-EMETICS.
--- NOTE | 2020-04-10 09:20 | NUR ---
PT UP TO BATHROOM. INDENPENDENT W/ RN IN ROOM TO ASSIST IF NEEDED. VOIDED 300 MLS OF CLEAR YELLOW URINE. PT BACK IN BED WATCHING TELEVISION.
--- NOTE | 2020-04-10 10:10 | NUR ---
IN TO GIVE PT 1 MG DILAUDID FOR PAIN, AND ZOFRAN 4 MG PRIOR FOR N/V. PT IS WITHOUT COMPLAINT AND NO OTHER NEEDS AT THIS TIME. JACQUES LIGHT IN REACH. EMESIS BAG AT BEDSIDE AND CALL LIGHT IN REACH.
--- NOTE | 2020-04-10 12:40 | NUR ---
PT IN BED SLEEPING. VISUALIZED CHEST RISE AND FALL. CALL LIGHT IN REACH.
--- NOTE | 2020-04-10 14:08 | NUR ---
IN TO CHANGE LR BAG. PT SLEEPING AND AWOKE ON RN ENTRANCE. 1400 VITAL COMPLETED. VSS. BG 106, WNL. PT RATES ABDOMINAL PAIN 6/10. DENIES NAUSEA. NO EPISODES OF VOMITING THIS AFTERNOON. PT UP TO BATHROOM TO VOID. HAT EMPTIED OF 200 MLS CLEAR YELLOW URINE. PT NOW RETURNED TO BED WATCHING TELEVISION. CALL LIGHT IN REACH.
--- NOTE | 2020-04-10 14:40 | NUR ---
report given to Iva BARBOSA and floated to CCU.
--- NOTE | 2020-04-10 15:30 | NUR ---
DR LOCKWOOD IN TO SEE PT, DIET ADVANCED TO CLEAR LIQUIDS, ICE WATER PROVIDED. DENIES FURTHER NEEDS.
--- NOTE | 2020-04-10 15:54 | NUR ---
SBA INTO BATHROOM TO VOID, REPORTS GOOD PAIN RELIEF AFTER DILAUDID, ASKING IF SHE WILL BE ABLE TO EAT AND DRINK SOON.REMAINS NPO, DENIES ANY NAUSEA. PLAYING GAMES ON PHONE. CALL LIGHT IN EASY REACH.
--- NOTE | 2020-04-10 18:10 | NUR ---
PATIENT AWAKE IN BED, VITALS AND I&OS CHARTED. CALL LIGHT IN REACH, NO OTHER NEEDS AT THIS TIME
--- NOTE | 2020-04-10 19:03 | NUR ---
CHICKEN BROTH FOR DINNER, TOLERATED WELL, DENIES NEED FOR PAIN MEDICATION, NO NAUSEA AT THIS TIME.
--- NOTE | 2020-04-10 19:05 | NUR ---
SHIFT REPORT RECEIVED FROM DANIA BARBOSA. PT RESTING IN BED, WATCHING TV. NO NEEDS AT THIS TIME. CALL LIGHT IN REACH.
--- NOTE | 2020-04-10 21:10 | NUR ---
ASSESSMENT, VS AND I&O COMPLETED. GCS 15, A&O X4. PT DENIES SOB OR PAIN. CBG 112, NO COVERAGE NEEDED. SCHEDULED MEDS PROVIDED. IV WNL, CDI, FLUSHED WELL. UNABLE TO ASSESS LUNGS, HEART AND BOWEL TONES DUE TO PAPR. JELLO AND ICE WATER PROVIDED. NO OTHER NEEDS AT THIS TIME. CALL LIGHT IN REACH.
--- NOTE | 2020-04-11 | NUR ---
PT RESTING IN BED, EYES CLOSED. RR EVEN, UNLABORED. CALL LIGHT IN REACH.
--- NOTE | 2020-04-11 02:00 | NUR ---
PT RESTING IN BED, EYES CLOSED. RR EVEN, UNLABORED. CALL LIGHT IN REACH.
--- NOTE | 2020-04-11 04:07 | NUR ---
PT RESTING IN BED, EYES CLOSED. RR EVEN, UNLABORED. CALL LIGHT IN REACH.
--- NOTE | 2020-04-11 05:53 | NUR ---
ASSEESSMENT, VS AND I&O COMPLETED. ATTEMPTED LAB DRAW WITH LIMITED SUCCESS. PT DENIES SOB. NO OTHER NEEDS AT THIS TIME. CALL LIGHT IN REACH.
--- NOTE | 2020-04-11 06:33 | NUR ---
cbg 112, no coverage needed. pt states she has 6/10 headache, prn pain med provided. no other needs at this time. call light in reach.
--- NOTE | 2020-04-11 08:44 | NUR ---
PT IN BED, REPORTS SHE SLEPT WELL LAST NIGHT. C/O A COUGH THAT SHE SAYS STARTED THIS MORNING. MORNING ASSESSMENT COMPLETED AND IV PROTONIX GIVEN. REMAINS ON CLEAR LIQUID DIET AND ATE 100% OF BREAKFAST. INDEPENDENT IN ROOM AND HAT EMPTIED OF 200 MLS CLEAR YELLOW URINE. TYLENOL GIVEN AT 0600 FOR HEADACHE WHICH PT STATES REMAINS AN 8/10. PT IS ALSO C/O CONGESTION WHICH SHE IS REQUESTING MEDICATION FOR. WILL NOTIFY MD OF RECENT HEADACHE AND CONGESTION. PT REMAINS ON RIGHT SIDE AND CALL LIGHT IN REACH.
--- NOTE | 2020-04-11 09:50 | NUR ---
IN TO DRAW LABS. THIS RN WAS SUCCESSFUL ON 2ND ATTEMPT. CBC AND CMP DRAWN FROM RIGHT HAND. PT TOLERATED WELL. DIET ADVANCED FROM CLEAR LIQUIDS TO LOW FAT DIET. ATE CLEAR LIQUID BREAKFAST AND THEN REQUESTED SNACK AFTER DIET ADVANCED. PT INDEPENDENT AND RECLINER PUT IN ROOM. PT AMBULATES FREQUENTLY IN ROOM. IN BED WATCHING TV NOW. CALL LIGHT IN REACH.
--- NOTE | 2020-04-11 10:33 | NUR ---
PT UNDER PRECAUTIONS, WILL FOLLOW ABLE
--- NOTE | 2020-04-11 12:00 | NUR ---
PT UP TO SHOWER. PROVIDED TOWELS AND TOILETRIES. SHOWER COMPLETED INDEPENDENTLY. BG 161, 1 UNIT OF REGULAR INSULIN GIVEN. PT CONTINUES TO C/O 11/16 HEADACHE. WILL GIVE TYLENOL. PT NOW EATING LUNCH, LOW FAT DIET. CALL LIGHT IN REACH.
--- NOTE | 2020-04-11 14:15 | NUR ---
PT GIVEN TYLENOL AT APPROX 1330 FOR HEADACHE RATED 6/10. REPORTS HEADACHE HAS SUBSIDED AND DENIES PAIN OR NAUSEA AT THIS TIME. HAS BEEN INDEPENDENT TO BR, HAT EMPTIED OF 450 MLS. PT HAS PENDING DC AFTER MD EVALUATION.
--- NOTE | 2020-04-11 15:50 | NUR ---
PT DC INSTRUCTIONS REVIEWED. PT VERBALIZED UNDERSTANDING. 20 G IV REMOVED FROM RFA. VSS. PT DENIES PAIN OR NAUSEA. PT AMBULATORY, WALKED TO ER EXIT AND DC'D HOME. P/U BY DAUGHTER. BELONGINGS (GLASSES, UPPER AND LOWER DENTURES, CLOTHES, EYE DROPS, PHONE) W/ PT.
== END 2020-04-11 15:45 | disposition home or self-care (01) ==
LOC: ED 13:40 → MS 13:42
PROVIDERS: ADMIT Internal Medicine; ATTEND Internal Medicine
DX: U07.1 COVID-19 (principal); K85.90 Acute pancreatitis without necrosis or infection, unspecified; K86.1 Other chronic pancreatitis; F41.9 Anxiety disorder, unspecified; R73.03 Prediabetes; H40.9 Unspecified glaucoma; Z91.030 Bee allergy status; Z79.899 Other long term (current) drug therapy; Z79.84 Long term (current) use of oral hypoglycemic drugs
CPT/HCPCS: 76705; 80053; 80061; 82150; 83690; 85025; 96375; 96376; 99285-25; C9113; C9803; G0378; G0480; J1170; J1815; J2270; J2405; J7030; J7121; U0003

== ENCOUNTER 2020-05-15 18:30 | Emergency (ER) | payer OTHER ==
[~2020-05-15] VITALS: Ht 160 cm; Wt 66.2 kg
--- OUTSIDE RECORDS SUMMARY | 2020-05-15 18:32 | XMS ---
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 Care History Medical/Surgical 03/21/2020 [facility] - PATIENT IS [facility] ELIGIBLE, \T\middot;\T\nbsp; PLEASE REFER PATIENT TO [facility] FOR NON EMERGENT MEDICAL NEEDS. \T\middot;\T\nbsp; [facility] CAN SEE PATIENTS SAME DAY FOR APTS IF PATIENT CALLS FIRST THING IN THE MORNING. E.D. VISIT COUNT (12 MO.) [address] [place] [address] TOTAL 4 NOTE: Visits indicate total known visits. ED/UCC VISIT TRACKING (12 MO.) 05/15/2020 18:31 [facility] TYPE: Emergency COMPLAINT: - ABDOMINAL PAIN 04/09/2020 13:41 [facility] TYPE: Emergency COMPLAINT: - ABDOMINAL PAIN 03/20/2020 11:06 [facility] TYPE: Emergency COMPLAINT: - ABDOMINAL PAIN 01/23/2020 12:48 [facility] TYPE: Emergency COMPLAINT: - ABD PAIN INPATIENT VISIT TRACKING (12 MO.) 04/09/2020 13:42 [facility] TYPE: Observation COMPLAINT: - PANCREATITIS DIAGNOSES: - Anxiety disorder, unspecified - Unspecified glaucoma - Prediabetes - long term (current) use of oral hypoglycemic drugs - Other chronic pancreatitis - Acute pancreatitis without necrosis or infection, unspecified - COVID-19 - Epigastric pain - Bee allergy status - Other salvage determiner (current) drug therapy 03/20/2020 11:07 [facility] TYPE: Observation COMPLAINT: - PANCREATITIS DIAGNOSES: - Other acute pancreatitis without necrosis or infection - Acquired absence of other specified parts of digestive tract - Contact with and (suspected) exposure to other viral communicable diseases - Other fpc (current) drug therapy - Epigastric pain - Anxiety disorder, unspecified - senior care (current) use of oral hypoglycemic drugs - Gastro-esophageal reflux disease without esophagitis - Type 2 diabetes mellitus without complications - Bee allergy status 01/23/2020 16:02 [facility] TYPE: Medical Surgical COMPLAINT: - PANCREATITIS DIAGNOSES: - senior care (current) use of oral hypoglycemic drugs - Type 2 diabetes mellitus without complications - Acute pancreatitis without necrosis or infection, unspecified - Alcohol abuse, in remission - Gastro-esophageal reflux disease without esophagitis - Idiopathic acute pancreatitis without necrosis or infection - Contact with and (suspected) exposure to other viral communicable diseases - Other salvage determiner (current) drug therapy [email or web address]
== END 2020-05-15 18:50 | disposition left against medical advice (07) ==
LOC: ED 18:30
DX: Z53.21 Procedure and treatment not carried out due to patient leaving prior to being seen by health care provider (principal)

== ENCOUNTER 2020-08-22 15:04 | Inpatient (IN) | payer OTHER ==
[~2020-08-22] VITALS: Ht 160 cm; Wt 69.2 kg
[~2020-08-22 15:04] MED LIST changes: -CERAVE453 GM TOP; +CETAPHIL CREAM454 GM TOP
--- OUTSIDE RECORDS SUMMARY | 2020-08-22 15:06 | XMS ---
PreManage Notification: KAREY MENDIETA Security [employer] Events 1 event(s) in the past 18 months Most recent security events: Elopement at [facility] 05/15/2020 18:31 - Other Details: PATIENT LWBS. CRITERIA MET - [facility] CARE PROVIDERS [facility] 03/21/2020-[facility] PHONE: [phone] Antonio has no Care Guidelines for this patient. Care History Medical/Surgical 03/21/2020 [facility] \T\middot;\T\nbsp; PLEASE REFER PATIENT TO [facility] FOR NON EMERGENT MEDICAL NEEDS. \T\middot;\T\nbsp; [facility] CAN SEE PATIENTS SAME DAY FOR APTS IF PATIENT CALLS FIRST THING IN THE MORNING. E.D. VISIT COUNT (12 MO.) [address] TOTAL 6 NOTE: Visits indicate total known visits. ED/UCC VISIT TRACKING (12 MO.) [facility]22[facility]2020 15[facility]04 [facility] COMPLAINT: - ABDOMINAL PAIN 05/15/2020 19:48 [facility] Stacie ZAMUD[facility] TYPE: Emergency DIAGNOSES: - Abdominal Pain - Acute pancreatitis without necrosis or infection, unspecified 05/15/2020 18:31 [facility] [place] TYPE: Emergency COMPLAINT: - ABDOMINAL PAIN DIAGNOSES: - Procedure and treatment not carried out due to patient leaving prior to being seen by health care provider 04/09/2020 13:41 [facility] [place] TYPE: Emergency COMPLAINT: - ABDOMINAL PAIN 03/20/2020 11:06 [facility] [place] TYPE: Emergency COMPLAINT: - ABDOMINAL PAIN 01/23/2020 12:48 [facility] [place] TYPE: Emergency COMPLAINT: - ABD PAIN INPATIENT VISIT TRACKING (12 MO.) 05/15/2020 19:48 [facility] [place] TYPE: Surgical Services DIAGNOSES: - Idiopathic acute pancreatitis without necrosis or infection - Acute pancreatitis without necrosis or infection, unspecified 04/09/2020 13:42 [facility] [place] TYPE: Observation COMPLAINT: - PANCREATITIS DIAGNOSES: - Anxiety disorder, unspecified - Unspecified glaucoma - Prediabetes - continuous churn buttermaker (current) use of oral hypoglycemic drugs - Other chronic pancreatitis - Acute pancreatitis without necrosis or infection, unspecified - COVID-19 - Epigastric pain - Bee allergy status - Other bed bug exterminator (current) drug therapy 03/20/2020 11:07 [facility] [place] TYPE: Observation COMPLAINT: - PANCREATITIS DIAGNOSES: - Other acute pancreatitis without necrosis or infection - Acquired absence of other specified parts of digestive tract - Contact with and (suspected) exposure to other viral communicable diseases - Other group home (current) drug therapy - Epigastric pain - Anxiety disorder, unspecified - continuous churn buttermaker (current) use of oral hypoglycemic drugs - Gastro-esophageal reflux disease without esophagitis - Type 2 diabetes mellitus without complications - Bee allergy status 01/23/2020 16:02 [facility] [place] TYPE: Medical Surgical COMPLAINT: - PANCREATITIS DIAGNOSES: - retirement (current) use of oral hypoglycemic drugs - Type 2 diabetes mellitus without complications - Acute pancreatitis without necrosis or infection, unspecified - Alcohol abuse, in remission - Gastro-esophageal reflux disease without esophagitis - Idiopathic acute pancreatitis without necrosis or infection - Contact with and (suspected) exposure to other viral communicable diseases - Other group home (current) drug therapy [email or web address]
--- NOTE | 2020-08-22 20:20 | NUR ---
PT ADMITTED TO FLOOR, WALKED WITH PT SBA TO BED. VS DONE, ORAL SWAPS GIVEN. PT RESTING AT THIS TIME. NO FURTHER ASSISTANCE NEEDED AT THIS TIME.
--- NOTE | 2020-08-22 20:40 | NUR ---
PT ARRIVED TO THE FLOOR AT 2019, SHE WAS ABLE TO MOVE OVER TO BED ON HER OWN, VS TAKEN AND ENTERED. SHE HAS A VISITOR WITH HER. ADMISSTION HISTORY COMPLETED. SHE HAS LR HANGING AND INFUSING FINE. CALL LIGHT IS CLOSE AND PT DENIES FURTHER NEEDS.
--- NOTE | 2020-08-22 21:30 | NUR ---
PATIENT IS RESTING IN BED. PATIENT REPORTS 8/10 PAIN IN HER ABD. PATIENT GIVEN PRN PAIN MEDICATION PER ORDER. PATIENT DENIES ANY NAUSEA. PATIENTS BS CHECKED PER ORDER AND IS WNL. PATIENT DENIES ANY NEEDS. CALL LIGHT IN REACH. IV INFUSING PER ORDER.
--- NOTE | 2020-08-22 21:39 | NUR ---
COOP WITH ADMIT ASSESSMENT. IVF INFUSING, WAS MEDICATED WITH MORSPHINE PER ABD PAIN. ABD SLIGHTLY DISTENDED. AWARE OF NPO W SIPS OF CLEARS/ICE CHIPOS, NO C/O N/V, CALL LIGHT AT BEDSIDE
--- NOTE | 2020-08-23 00:19 | NUR ---
resting, no distress, ivf infusing, call light at hands reach
--- NOTE | 2020-08-23 00:28 | NUR ---
medicated with morphine 2mg IV 11/16 abd pain
--- NOTE | 2020-08-23 02:42 | NUR ---
awakes easily, no further c/o abd pain, no emesis, coop with assessment, up to br, voided, back to bed, tolerated well, NPO ice chips given. repositons self in bed, Bed alarm on IVf infusing, on room air. CBG 100, no coverage needed
--- NOTE | 2020-08-23 04:27 | NUR ---
pt medicated with zofran 4mg iv c/o n/v. and c/o /10 abd pain, medicated with morphine 2mg IV. awake, alert and oriented, cooperative. ivf infusing w.o problems, NPO
--- NOTE | 2020-08-23 06:08 | NUR ---
PT UP TO BR SBA.
--- NOTE | 2020-08-23 06:23 | NUR ---
c/o 7 abd pain, was medicated with morphine 2mg IV, Up to br, voided QS urione, back to bed, tolerated well. IVf infusing
--- NOTE | 2020-08-23 09:00 | NUR ---
PT REQUESTING PAIN MEDICATION FOR ABD PAIN. IV MORPHINE 2 MG. PT AMBULATORY IN ROOM. INDEPENDENT. CALL LIGHT IN REACH. RESTING IN BED. STATES SHE WILL GET UP TO CHAIR LATER IN THE MORNING AFTER PAIN MEDS HAVE KICKED IN. REFUSING NOW. REMAINS NPO W/ ICE CHIPS.
[2020-08-23] MEDS ORDERED: GLUCOPHAGE1000 MG PO (12:08)
--- NOTE | 2020-08-23 12:09 | NUR ---
MED REC COMPLETE
--- NOTE | 2020-08-23 12:51 | NUR ---
PT LIVES WITH DAUGHTER, DAUGHTER'S BOYFRIEND, AND PT'S SON. THEY HELP WITH BASIC NEEDS. PT STATED SHE DOES NOT NEED ANY MEDICAL EQUIPMENT OR USES ANY. THEY ARE ON FOOD STAMPS AND USE THE [facility] FOOD B[facility]. HER DAUGHTER DRIVES HER TO THE STORE OR WILL SHOP FOR PT. PT HAS NO CONCERNS GOING HOME.
--- NOTE | 2020-08-23 13:08 | NUR ---
PT LIVES WITH DAUGHTER, DAUGHTER'S BOYFRIEND, AND SON.THEY HELP WITH BASIC NEEDS. PT STATED SHE DOES NOT NEED ANY MEDICAL EQUIPMENT. THEY ARE ON FOOD STAMPS AND USE THE [facility] FOOD B[facility]. HER DAUGHTER DRIVES HER TO THE STORE OR WILL SHOP FOR PT. PT HAS NO CONCERNS GOING HOME.
--- NOTE | 2020-08-23 14:22 | NUR ---
PT AMBULATING REINOSO W/ AIDE FOR SBA. TOLERATING WELL.
--- NOTE | 2020-08-23 14:30 | NUR ---
IV MORPHINE GIVEN FOR 7/10 ABD PAIN. TOLERATING ICE CHIPS WELL. BOWEL TONES ACTIVE IN ALL QUADRANTS. PT REPORTS SHE IS PASSING GAS. LAST BM YESTERDAY. LR INFUSING AT 150MLS/HR. VOIDING QUANTITY SUFFICIENT. DENIES FURTHER NEEDS.
--- NOTE | 2020-08-23 15:59 | NUR ---
PT REQUESTING HEARTBURN MEDICATION. DR NUNEZ CALLED AND NEW ORDERS FOR 40 MG IV PROTONIX DAILY. IN TO GIVE PT MEDICATION. PT REMAINS NPO W/ ICE CHIPS. ABD PAIN PERSISTENT AT 7/10, PT REQUESTING PAIN MEDICATION. RESTING IN BED. CALL LIGHT IN REACH.
--- NOTE | 2020-08-23 18:29 | NUR ---
PT CALLING FOR PAIN MEDICATION. MEDICATED W/ 2 MG IV MORPHINE AND PO TYLENOL. UP AMBULATING IN ROOM INDEPENDENTLY. NO ACUTE CHANGES TO HEAD TO TOE ASSESSMENT. DENIES FURTHER NEEDS. ENCOURAGED TO AMBULATE HALLS.
--- NOTE | 2020-08-23 18:56 | NUR ---
PATIENT AMBULATED REINOSO WITH THIS ACOUSTIC SENSOR OPERATOR, 2X AROUND NURSES STATION (4 TOTAL TODAY) BACK TO ROOM.
--- NOTE | 2020-08-23 19:15 | NUR ---
SHIFT REPORT FROM NURSE SUKHJINDER. PT AWAKE AND WATCHING TV. DENIES NEEDS AT THIS TIME. NEW IV BAG HUNG. CALL LIGHT WITHIN REACH.
--- NOTE | 2020-08-23 20:34 | NUR ---
IN ROOM FOR EVENING ASSESSMENT. PT UP TO TOILET TO VOID. 600ML CLEAR YELLOW URINE. PT REPORTS ABDOMINAL PAIN 11/16. WILL BRING PRN PAIN MEDS. VSS. CMS INTACT. IVF INFUSING PER ORDERS. CBG 88; NO SS NEEDED. NO FURTHER NEEDS AT THIS TIME. CALL LIGHT WITHIN REACH.
--- NOTE | 2020-08-23 21:55 | NUR ---
IN ROOM FOR PRN PAIN MEDS. PT REPORTS 7/10 ABDOMINAL PAIN. 2MG IV MORPHINE ADMINISTERED. CALL LIGHT WITHIN REACH.
--- NOTE | 2020-08-24 02:08 | NUR ---
CALL LIGHT ANSWERED. PT UP TO TOILET TO VOID. CBG 95; NO SS INSULIN NEEDED. PT REPORTS PAIN 6/10 ABDOMEN; 2MG IV MORPHINE ADMINISTERED AT THIS TIME. NEW BAG IVF HUNG. CALL LIGHT WITHIN REACH.
--- NOTE | 2020-08-24 09:27 | NUR ---
pt awake, alert and oriented, up to br, voided, back to bed, tolerated well sba. lab here to draw lipase. coop. c/o abd pain 11/16 medicated with Morphine 2mg IV
--- NOTE | 2020-08-24 11:31 | NUR ---
RESTING, EYES CLOSED, NO DISTRESS, IVF INFUSING, CALL LIGHT AT BEDSIDE
--- NOTE | 2020-08-24 12:31 | NUR ---
Dr Lyles at bedside, examining pt, Pt up to br, voided QS yellow utrine, no c/o pain at this time. NPO. call light at hands reach
--- NOTE | 2020-08-24 12:41 | NUR ---
IVF rate decreaed to 75cc/hr as per new orders, tray of clear liquids given to pt. will monitor. no c/o pain.
--- NOTE | 2020-08-24 14:17 | NUR ---
PATIENT UP TO BR, SBA. VITALS AND I&OS CHARTED. DIET SODA PROVIDED PER REQUEST. CALL LIGHT AND PERSONAL ITEM CLOSE BY
--- NOTE | 2020-08-24 14:24 | NUR ---
Pt in bed, up to br, voided, toleratd clear fluids well, no emesis, c/o abd pain, abd soft, tender, HEA. no bm this shift. c/o abd pain, medicated with Morphine 2mg IV. coop with assessment
--- NOTE | 2020-08-24 16:22 | NUR ---
AWAKE, WATCHING TV, ON ROOM AIR, NO FURTHER C/O ABD PAIN AT THIS TIME, TOLERATED LIQUID DIET WELL. CALL LIGHT AND FLUIDS AT HANDS REACH,
--- NOTE | 2020-08-24 17:35 | NUR ---
Pt on room air, abd softer, HEA, no bm this shift, voiding QS, up to br w 1pa. IVF decreaed to 75cc/hr. Tolerated clear liquids diet well, has been medicated with morphine 2mg per abd pain with good pain relief, no emesis. pleasant and cooperative. aware to increase ambulation, stated understanding.
--- NOTE | 2020-08-24 18:55 | NUR ---
Awake, alert and oriented, Up to br, voiding QS, tolerating clear liquids well, no emesis. Back to bed. no c/o pain at this time. call light at hands reach. watching tv
--- NOTE | 2020-08-24 21:03 | NUR ---
PATIENT'S EVENING ASSESSMENT COMPLETE. PATIENT GOT 1 NORCO FOR 4/10 ABD PAIN AND THEN WANTED TYLENOL WELL FOR A TORRES AND 650 PO TYLENOL GIVEN TOTAL TYLENOL DOSE WAS UNDER 1GM. PATIENT'S VS STABLE AND PATIENT JUST GOT UP TO USE THE RESTROOM 1PSBA AND BACK TO BED. CALL LIGHT IN REACH.
--- NOTE | 2020-08-24 22:48 | NUR ---
PATIENT WANTED A SNACK BEFORE SLEEP. 2 SUGAR FREE PUDDINGS AND SOME MILK GIVEN. NO OTHER NEEDS AT THIS TIME. CALL LIGHT IN REACH.
--- NOTE | 2020-08-24 23:53 | NUR ---
PATIENT RESTING QUIETLY, EYES CLOSED, RESPIRATIONS REGULAR AND EVEN, CALL LIGHT IN REACH.
--- NOTE | 2020-08-25 02:19 | NUR ---
PATIENT'S 2AM FGNE=430 AND NO INSULIN WAS GIVEN. URINE IN BATHROOM DUMPED. DIEST SPRITE GIVEN TO PATIENT AND ICE WATER REFILLED. PATIENT HAS NO OTHER NEEDS. CALL LIGHT IS IN REACH.
--- NOTE | 2020-08-25 04:00 | NUR ---
PATIENT RESTING QUIETLY IN BED, EYES CLOSED, RESPIRATIONS REGULAR AND EVEN, CALL LIGHT IN REACH.
--- NOTE | 2020-08-25 08:00 | NUR ---
REPORT RECIEVED. PT IN BED WITH EYES CLOSED. RESPIRAITONS EQUAL AND NONLABORED. CALL LIGHT IN REACH.
--- NOTE | 2020-08-25 09:45 | NUR ---
ASSESSMENT COMPLETED. PT ATE 100% OF BREAKFAST. DENIES PAIN OR NAUSEA. MEDICAITONS ADMINISTERED. DENIES NEEDS. CALL LIGHT IN REACH.
[2020-08-25] MEDS ORDERED: HYDROCODON-ACE1 EAC8 PO (10:48)
--- NOTE | 2020-08-25 11:12 | NUR ---
PATIENT UP TO SHOWER, IV SITE WRAPPED. WILL CALL IF ASSISTANCE IS NEEDED.. VITALS AND I&OS CHARTED.
--- NOTE | 2020-08-25 11:30 | NUR ---
DISHCARGE INSTRUCTIONS PROVIDED. PT WITH NO QUESTIONS
== END 2020-08-25 12:05 | disposition home or self-care (01) | DRG 440 ==
LOC: ED 15:04 → MS 18:32
PROVIDERS: ADMIT Student in an Organized Health Care Education/Training Program; ATTEND Student in an Organized Health Care Education/Training Program
DX: K85.00 Idiopathic acute pancreatitis without necrosis or infection (principal); K86.1 Other chronic pancreatitis; Z20.822 Contact with and (suspected) exposure to COVID-19; E11.9 Type 2 diabetes mellitus without complications; Z79.899 Other long term (current) drug therapy; Z79.01 Long term (current) use of anticoagulants; Z79.891 Long term (current) use of opiate analgesic
CPT/HCPCS: 36415; 80048; 80053; 81001; 82150; 83690; 83735; 84478; 85025; C9113; C9803; J1650; J2270; J2405; J7030; J7121; U0003

== ENCOUNTER 2020-09-24 20:15 | Inpatient (IN) | payer OTHER ==
[~2020-09-24] VITALS: Ht 160 cm; Wt 66.7 kg
[~2020-09-24 20:15] MED LIST changes: -CETAPHIL CREAM454 GM TOP; +HYDROCODON-ACE1 EAC8 PO; -LATANOPROST2.5 ML OU
--- NOTE | 2020-09-25 00:25 | NUR ---
PT TO ROOM FROM ED VIA STRETCHER. ALERT AND ORIENTED. ABLE TO TRANSFER SELF TO BR TO VOID AND BACK TO BED. ORDERS RECEIVED. IVF INFUSING. PT REPORTS 7/10 ABD PAIN. PRN FOR PAIN PROVIDED ORDERED. PT ALSO REPORTS CONTINUED NAUSEA. WILL CALL MD FOR ADDITIONAL ORDERS. VS WNL. CLEAR LIQUIDS PROVIDED. AIRPORT RAMP ATTENDANT IN ROOM TO DO ADMISSION.
--- NOTE | 2020-09-25 00:31 | NUR ---
PT ADMITTED TO ROOM 115 FROM ED VIA STRETCHER. INDEPENDENTLY OFF STRETCHER TO BATHROOM, AND BACK TO BED. RA, A/O, COMPLAINTS OF PAIN, DISCOMFORT. PT PRIMARY RN IN ROOM WELL.
--- NOTE | 2020-09-25 00:45 | NUR ---
DR. NUNEZ NOTIFIED OF CONTINUED NAUSEA. NEW TELEPHONE ORDERS RECEIVED. VERIFIED VIA READ BACK METHOD.
--- NOTE | 2020-09-25 01:31 | NUR ---
ADMISSION ASSESSMENT COMPLETE. PT REPORTS ABD PAIN IMPROVED AFTER PRN PROVIDED. PRN PHENERGAN ADMINISTERED OVER 10 MIN ON PUMP DILUTED WITH 20 ML NS. PT DENIES DISCOMFORT WITH INFUSION. ORIENTED TO ROOM AND NURSE CALL LIGHT. DENIES QUESTIONS OR CONCERNS. CALL LIGHT IN REACH.
--- NOTE | 2020-09-25 02:32 | NUR ---
CALL LIGHT ANSWERED, IV PUMP ALARMING. IN TO FIX PUMP. PT UP TO BR WITH SBA TO VOID. BACK TO BED, MUKUL WELL. REPORTS PAIN IS TOLERABLE. NAUSEA IMPROVED. SpO2 98%. HR 60'S.
--- NOTE | 2020-09-25 05:59 | NUR ---
VS AND I&O COMPLETE. PT UP TO BR WITH MINIMAL SBA TO VOID. BACK TO BED, MUKUL WELL. REPORTS ABD PAIN 11/16. PRN FOR PAIN ADMINISTERED PER EMAR. DENIES NAUSEA AT THIS TIME.
--- NOTE | 2020-09-25 08:30 | NUR ---
PT STILL IS VERY PAINFULL OVERALL. ABD HAS BOWEL TONES PRESENT BUT IS TENDER TO TOUCH. NO N/V SO FAR THIS MORNING. WILL CONTINUE TO MONITOR.
--- NOTE | 2020-09-25 09:30 | NUR ---
PATIENT AWAKE IN BED, FAMILY ASLEEP ON COUCH, BREAKFAST TRAY ORDERED. NO OTHER NEEDS AT THIS TIME
--- NOTE | 2020-09-25 10:45 | NUR ---
PT IN ROOM. WILL MAKE A PLAN FOR PAIN CONTROL ONCE MD IS DONE WITH VISIT.
--- NOTE | 2020-09-25 11:00 | NUR ---
Pt lives with son and daughter. Family assists as needed. Pt does not drive and family take her to appts. Pt uses [facility] for her pharmacy. Pt has flare of pancreatitis. States she has every- thing she needs at home. Plans on dc to home when cleared medically.
--- NOTE | 2020-09-25 12:10 | NUR ---
PT IN ROOM SLEEPING. NO NEW CONCERNS NOTED AT THIS TIME.
--- NOTE | 2020-09-25 13:34 | NUR ---
PT IS ALERT, ORIENTED AND HAS FAMILY IN RM ASLEEP ON COUCH. PT MENTIONED THAT SHE IS NOT FEELING WELL AFTER AM MEAL. THANKED ME FOR VISIT, GAVE BLESSING. G.POST LEFT AND WILL FOLLOW NEEDED
--- NOTE | 2020-09-25 13:40 | NUR ---
SECOND ASSESSMENT WAS UNCHANGED FROM THE FIRST. NO NEW CONCERNS WERE NOTED. WILL CONTINUE TO MONITOR.
--- NOTE | 2020-09-25 13:41 | NUR ---
PATIENT AWAKE EATING JELLO. VITALS AND I&OS CHARTED. CALL LIGHT IN REACH, NO OTHER NEEDS AT THIS TIME
--- NOTE | 2020-09-25 16:15 | NUR ---
THIRD SHIFT ASSESSMENT WAS UNCHANGED FROM THE PRIOR TWO. ABD IS TENDER TO TOUCH BUT SOFT. PT HAS HAD NO N/V SO FAR TODAY. PT IS TOLERATING CLEARS FINE.
--- NOTE | 2020-09-25 17:35 | NUR ---
PAIN TODAY WAS THE MAIN ISSUE. PAIN SO FAR AT IT'S LOWEST WAS A 6/10. ABD SOUNDS PRESENT, ABD SOFT TO TOUCH BUT TENDER, LOBES CLEAR. NO PERIPH. EDEMA PRESENT. PT IS TOLERATING A CLEAR LIQUID DIET. PT DID NOT HAVE ANY N/V SO FAR THIS SHIFT.
--- NOTE | 2020-09-25 17:54 | NUR ---
PATIENT AWAKE EATING DINNER. VITALS AND I&OS CHARTED, GARBAGE EMPTIED,FRESH ICE WATER PROVIDED. NO OTHER NEEDS AT THIS TIME
--- NOTE | 2020-09-25 20:30 | NUR ---
IN TO GET VITALS, TRAY FINISHED WITH AND ICE WATER FILLED, NO FURTHER NEEDS AT THIS TIME
--- NOTE | 2020-09-25 20:35 | NUR ---
awake, coop, on room air, medicated with DIlaudid 1mg IV 11/16 abd pain, tolerating fludis well, no emesis, IVF infusing w/o problems, independent in room
--- NOTE | 2020-09-26 00:35 | NUR ---
RESTING, ROOM AIR, NO DISTRESS, IVF INFUSING, CALL LIGHT AT BEDSIDE
--- NOTE | 2020-09-26 01:58 | NUR ---
Up to br, voiding QS, IVF infusing, back to bed, no c/o abd pain or n/v. call light at bedside
--- NOTE | 2020-09-26 05:16 | NUR ---
Pt has slept most of this shift. Medicated with Dilaudid per R abd pain, no emesis. Tolerating clear liquids well. IVF infusing w/o problems. Up to br, voiding QS, independent. Pleasant and coop. uses call light
--- NOTE | 2020-09-26 05:40 | NUR ---
MEDICATED WITH DILAUDID 1MG IV C/O 10/17 ABD RQ PAIN. UP TO BR, VOIDING QS, BACK TO BED. USES CALL LIGHT, TOLERATING FLUIDS
--- NOTE | 2020-09-26 08:15 | NUR ---
PT IN ROOM. PT AWAKE. ABD SOUNDS PRESENT, ABD SOFT BUT STUCCO PLASTERER TO TOUCH. NO N/V. PAIN 7/10 AT THIS TIME. LOBES CLEAR, NO OTHER CONCERNS NOTED AT THIS TIME.
--- NOTE | 2020-09-26 09:40 | NUR ---
PT IN ROOM. PT SHOWERED. NO NEW CONCERNS NOTED AT THIS TIME.
--- NOTE | 2020-09-26 10:00 | NUR ---
No change in plan for discharge.
--- NOTE | 2020-09-26 11:16 | NUR ---
MED REC COMPLETE
--- NOTE | 2020-09-26 12:00 | NUR ---
PT IN ROOM. NO NEW CONCERNS NOTED AT THIS TIME.
--- NOTE | 2020-09-26 15:42 | NUR ---
PAIN AT THIS TIME IS 5/10. NO NEW CONCERNS NOTED.
--- NOTE | 2020-09-26 17:21 | NUR ---
PT OVERALL HAD A BETTER DAY TODAY. LESS PAIN MEDICATION WAS NEEDED IN COMPARISON TO YESTERDAY. STILL NO ISSUES WITH N/V ANYMORE. PT NOW ON A FULL LIQUID DIET AND IF SHE IS EATING SLOWLY, SHE IS TOLERATING IT SO FAR. NO NEW ISSUES WERE NOTED AT ALL WITH ASSESSMENTS TODAY. ABD TENDERNESS STILL PRESENT THOUGH.
--- NOTE | 2020-09-26 19:35 | NUR ---
awake, on room air, no c/o abd, coop with assessment. IVF infusing w/o problems. tolerating full liquids well, no n/v.
--- NOTE | 2020-09-26 20:14 | NUR ---
c/o abd pain 11/16. medicated with dilaudid 1mg iv. up to br, voided, back to bed, tolerating well. no n/v. no bm. voiding qs. ivf infusing. call light and fluids at bedside
--- NOTE | 2020-09-27 00:40 | NUR ---
RESTING, TURNS SELF IN BED, ROOM AIR, IVF INFUSING, NO EMESIS, TOLERTING LIQUIDS, VOIDING QS. CALL LIGHT AT HANDS REACH
--- NOTE | 2020-09-27 03:59 | NUR ---
Pt up to br, voiding QS, had a bm, IVF infusing w/o problems, c/o 6/10 abd pain, no emesis, medicated with Toradol IV, call light at bedside, in bed. room air
--- NOTE | 2020-09-27 05:11 | NUR ---
Pt has slept, on room air, c/o abd pain was medicated with with Dilaudid and Toradol X1, effective, good bowel tones, had a hard bm, voiding QS. independent in room. IVF infusing w/o problems R wrist area. Tolerating full liquids well, no emesis.
--- NOTE | 2020-09-27 06:02 | NUR ---
medicated with dilauid 1mg iv c/o 5/10 abd pain, no emesis.
--- NOTE | 2020-09-27 08:00 | NUR ---
RECEIVED REPORT AT AROUND 0700. NO NEW CONCERNS WERE NOTED AT THAT TIME.
--- NOTE | 2020-09-27 09:21 | NUR ---
ABD STILL A BIT TENDER WITH PAIN 5/10. NO N/V, PT TOLERATING FULL LIQUID DIET WELL. NO OTHER ISSUES NOTED WITH ASSESSMENT, ALL WAS WDL.
== END 2020-09-27 10:22 | disposition home or self-care (01) | DRG 439 ==
LOC: ED 20:15 → MS 23:11
PROVIDERS: ADMIT Internal Medicine; ATTEND Internal Medicine
DX: K85.00 Idiopathic acute pancreatitis without necrosis or infection (principal); K86.2 Cyst of pancreas; Z20.822 Contact with and (suspected) exposure to COVID-19; F41.9 Anxiety disorder, unspecified; R73.9 Hyperglycemia, unspecified; H40.9 Unspecified glaucoma; Z90.49 Acquired absence of other specified parts of digestive tract; Z87.891 Personal history of nicotine dependence; Z79.899 Other long term (current) drug therapy; Z79.84 Long term (current) use of oral hypoglycemic drugs; Z79.891 Long term (current) use of opiate analgesic
CPT/HCPCS: 36415; 80053; 80061; 81001; 82150; 83690; 83735; 84100; 85025; 96374; 96375; 96376; 99284-25; C9113; C9803; J1170; J1650; J1885; J2405; J2550; J7121; U0003

== ENCOUNTER 2020-11-10 10:00 | Inpatient (IN) | payer OTHER ==
[~2020-11-10] VITALS: Ht 160 cm; Wt 68.6 kg
--- OUTSIDE RECORDS SUMMARY | 2020-11-10 10:02 | XMS ---
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 CRITERIA MET - [facility] CARE PROVIDERS [facility] 03/21/2020-[facility] PHONE: [phone] Antonio has no Care Guidelines for this patient. Care History Medical/Surgical 03/21/2020 [facility], \T\middot;\T\nbsp; PLEASE REFER PATIENT TO [facility] FOR NON EMERGENT MEDICAL NEEDS. \T\middot;\T\nbsp; [facility] CAN SEE PATIENTS SAME DAY FOR APTS IF PATIENT CALLS FIRST THING IN THE MORNING. E.D. VISIT COUNT (12 MO.) [address] TOTAL 8 NOTE: Visits indicate total known visits. 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 - Unspecified glaucoma - Acquired absence of other specified parts of digestive tract - senior care (current) use of oral hypoglycemic drugs - Anxiety disorder, unspecified - Hyperglycemia, unspecified - Idiopathic acute pancreatitis without necrosis or infection - Other rat exterminator (current) drug therapy - Cyst of pancreas 08/22/2020 18:32 [facility] [place] TYPE: Medical Surgical COMPLAINT: - PANCEATITIS DIAGNOSES: - Idiopathic acute pancreatitis without necrosis or infection - senior care (current) use of anticoagulants - Other chronic pancreatitis - Other rat exterminator (current) drug therapy - senior care (current) use of opiate analgesic - Type 2 diabetes mellitus without complications [facility] DIAGNOSES: - Idiopathic acute pancreatitis without necrosis or infection - Acute pancreatitis without necrosis or infection, unspecified 04/09/2020 13:42 [facility] [place] TYPE: Observation COMPLAINT: - PANCREATITIS DIAGNOSES: - Anxiety disorder, unspecified - Unspecified glaucoma - Prediabetes - senior care (current) use of oral hypoglycemic drugs - Other chronic pancreatitis - Acute pancreatitis without necrosis or infection, unspecified - COVID-19 - Epigastric pain - Bee allergy status - Other rat exterminator (current) drug therapy 03/20/2020 11:07 [facility] [place] TYPE: Observation COMPLAINT: - PANCREATITIS DIAGNOSES: - Other acute pancreatitis without necrosis or infection - Acquired absence of other specified parts of digestive tract - Contact with and (suspected) exposure to other viral communicable diseases - Other penitentiary (current) drug therapy - Epigastric pain - Anxiety disorder, unspecified - 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 - Gastro-esophageal reflux disease without esophagitis - Type 2 diabetes mellitus without complications - Bee allergy status 01/23/2020 16:02 [facility] [place] TYPE: Medical Surgical COMPLAINT: - PANCREATITIS DIAGNOSES: - 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
[2020-11-10] MEDS ORDERED: PEPTO-BISM262 MG/15 PO (10:25)
--- NOTE | 2020-11-10 13:30 | NUR ---
REPORT RECEIVED FROM REEXAMINER AND PT ARRIVED VIA STRETCHER. ALERT AND ORIENTED. SHARP 9/10 PAIN IN THE UPPER ABDOMEN. AWAITING PAIN MED VERIFICATION. PT STATES ABDOMEN IS DISTENDED MORE THAN NORMAL. BOWEL TONES HYPERACTIVE. LUNGS CLEAR THROUGHOUT. SKIN INTACT. DISCUSSED SAFETY, POC. PT. LEFT RESTING WITH CALL LIGHT IN REACH.
--- NOTE | 2020-11-10 14:46 | NUR ---
PT. VOMITED 200ML OF CLEAR, BROWN LIQUID EMESIS. PAIN IN UPPER ABD /. ADMIN IVP MORPHINE. PT. AMBULATED WITH SBA TO BATHROOM TO VOID AND HAVE A BM. BM SENT TO LAB FOR TESTING. PT. LEFT RESTING WITH CALL LIGHT IN REACH.
--- NOTE | 2020-11-10 17:08 | NUR ---
PATIENT VOMITED 150ML BROWN CLEAR LIQUID. NOTIFIED AND A ONE TIME DOSE OF 4MG IVP ZOFRAN ORDERED.
[2020-11-10] MEDS ORDERED: DOXYCYCLINE HY100 MG PO (17:35)
[2020-11-10] MEDS ORDERED: METRONIDAZOLE250 MG PO (17:36)
[2020-11-10] MEDS ORDERED: OMEPRAZOLE20 MG PO (17:36)
--- NOTE | 2020-11-10 19:45 | NUR ---
ANSWERED CALL LIGHT. SBA TO THE BATHROOM. PATIENT HAD EMESIS 50CC MIXED BLACK AND CLEAR COLOR. PATIENT C/O COLD AND NAUSEOUS. PATIENT ASKED IF SHE CAN HAVE SOMETHING FOR NAUSEA. PRIMARY RN NOTIFIED. WARM BLANKET PROVIDED.
--- NOTE | 2020-11-10 20:30 | NUR ---
PT ASSESSMENT COMPLETE. PT RESTING IN BED WITH DAUGHTER AT BEDSIDE. PT REPORTS PAIN 8/10 TO ABD, AND ALSO REPORTS NAUSEA. PRNS ADMNISTERED, SEE EMAR. PT REPORTS SOB WHEN PAIN ESCALATES, BUT DENIES SOB AT THIS TIME. BT'S HYPERACTIVE. ABD TENDER TO PALPATION. IV FLUSHED, WNL AND PATENT. VSS. PT UP TO THE BATHROOM AND BACK TO BED WITH SBA. ADDITIONAL MOUTH SWABS PROVIDED PER REQUEST. PT DENIES FURHTER NEEDS. CALL LIGHT IN REACH. PTS DAUGHTER LEAVING FOR THE NIGHT.
--- NOTE | 2020-11-10 22:03 | NUR ---
PT ROUNDING. PT RESTING IN BED WITH EYES CLOSED. PT WAKES EASILY WHILE STACK SUPERVISOR AT BEDSIDE. PT REPORTS PAIN IMPROVED, RATES 7/10. DENIES NAUSEA AT THIS TIME. PT DENIES FURTHER NEEDS. CALL LIGHT IN REACH.
--- NOTE | 2020-11-11 00:03 | NUR ---
HANDOFF REPORT GIVEN TO FAMILIA FARRELL.
--- NOTE | 2020-11-11 01:54 | NUR ---
Pt awakes easily, c/o 7/10 abd pain. medicated with Morphine 4mg IV. IVF infusing w/o problems. Up to br w minimum of assistt, voided dark yellow urine, had another small hard bm. Coop with assessment. On room air, abd soft DYLON. turns and repositions self
--- NOTE | 2020-11-11 04:56 | NUR ---
cOOP WITH VITALS, WAKES UP EASILY. C/O 11/16 ABD PAIN. MEDICATED WITH mORPHINE 4MG iv. uP TO BR, VOIDED, BACK TO BED, TOLERATED WELL. NPO
--- NOTE | 2020-11-11 05:03 | NUR ---
Pt has slept most of this shift. On room air. Has been medicated with Morphine 4mg Iv X3 per abd pain with good relief, had emesis and was medicated with compazine, effective, no further c/o n/v. NPO. does own mouth care. IVF infusing LAC, passing gas, had 2 hard small dark brown bms, voiding QS. Coop, pleasant, alert and oriented. minimum of help when getting up.
--- NOTE | 2020-11-11 08:00 | NUR ---
RECEIVED REPORT FORM DAY SHIFT RN . PATIENT IS RESTING IN BED. PATIENT IS REQUESTING PAIN MEDICATION.
--- NOTE | 2020-11-11 08:32 | NUR ---
PATIENT ASSESMENT COMPLETED. PATIENT RATES PAIN AT A 10/10 IN HER RUQ-MID UPPER ABD. PATIENT GIVEN PRN PAIN MEDICATION PER ORDER. PATIENT DENIES ANY NAUSEA. VITALS TAKEN AND RECORED. PATIENT UP TO USE THE RESTROOM. PATIENT WAS ABLE TO VOID. INTAKE AND OUPUT RECORDED. IV INFUSING PER ORDER. MORNING MEDICATIONS GIVEN PER ORDER. PATIENTS UPPER ABD IS TENDER TO THE TOUCH. PATIENT DENIES ANYT FURTHER NEEDS. PATIENT REMAINS NPO. CALL LIGHT AND BELINGINGS ARE WITHIN REACH.
--- NOTE | 2020-11-11 09:36 | NUR ---
PATIENT RESTING IN BED. VITALS AND I&0'S CHARTED. DIET SODA PROVIDED PER PATIENT REQUEST, CLEARED WITH RN PRIOR TO ADMIN. PATIENT DENIES NEED TO USE RESTROOM AT THIS TIME. CALL LIGHT IN REACH AND NO FURTHER NEEDS AT THIS TIME.
[2020-11-11] MEDS ORDERED: CETAPHIL CREAM454 GM TOP (10:38)
[2020-11-11] MEDS ORDERED: LATANOPROST2.5 ML OU (10:38)
--- NOTE | 2020-11-11 10:57 | NUR ---
MED REC COMPLETE
--- NOTE | 2020-11-11 11:10 | NUR ---
INTO PATIENT ROOM TO COMPLETE CASE MANAGEMENT ASSESSMENT. PATIENT AWAKE SITTING UP IN BED WATCHING TV. PATIENT STATES THAT SHE IS STILL LIVING AT HOME WITH HER DAUGHTER ROVERTO. PATIENT DOES NOT DRIVE, BUT ROVERTO IS AVAILABLE FOR ALL OF HER TRANSPORT WHEN NEEDED. PATIENT STATES SHE HAS 3 STA[address] LEADING INTO THE HOME AND DOES NOT STRUGGLE WITH MOBILITY. PATIENT DOES HAVE A CANE AT HOME IF NEEDED. PATIENT DELINES ANY FINANCIAL ASSISTANCE AT THIS TIME. PATIENT DAUGHTER ROVERTO MENDIETA [phone] ADDED TO CONTACT LIST. WILL CONTINUE TO SEE PATIENT TO ASSESS FOR ANY DISCHARGE NEEDS DURING HER STAY.
--- NOTE | 2020-11-11 12:02 | NUR ---
PATIENTS IV FLUID INFUSING. PATIENT REPORTS 6/10 PAIN. PATIENT GIVEN PRN PAIN MEDICATION PER ORDER. PATIENT DENIES ANY FURTHER NEEDS. CALL LIGHT IN REACH.
--- NOTE | 2020-11-11 13:04 | NUR ---
PATIENT IS RESTING IN BED WATCHING TV. PATIENT DENIES ANY NEEDS. CALL LIGHT IN REACH.
--- NOTE | 2020-11-11 13:30 | NUR ---
PATIENT RESTING IN BED, VISITOR IN ROOM. UP TO BATHROOM WITH SBA. VITALS AND I&O'S CHARTED. CALL LIGHT IN REACH AND NO FURTHER NEEDS AT THIS TIME.
--- NOTE | 2020-11-11 13:30 | NUR ---
PATIENT COMPLAINED OF ONSET OF NAUSEA, INFORMATION RELAYED TO PRIMARY RN OF PATIENT. CALL LIGHT IN REACH AND NO FURTHER NEEDS AT THIS TIME.
--- NOTE | 2020-11-11 13:47 | NUR ---
PT ALERT, ORIENTED AND SITTNG UP IN BED WATCHING TV. PT IS PLEASANT, FEELING BETTER. EXPRESSED SOME FRUSTRATION WITH REOCCURANCE AGGREVATED BY A BANANA. PT SAID SHE CAN ONLY EAT SOFT FOOD, DUE TO LOSS OF BOTTOM TEETH. PREPARING FOR DENTAL IMPLANTS. GAVE ENCOURAGEMENT AND BLESSING, FAMILY IN TO VISIT. WILL FOLLOW NEEDED
--- NOTE | 2020-11-11 14:25 | NUR ---
PATIENT REPORTS NAUSEA. PATIENT GIVEN PRN NAUSEA MEDICATION. PATIENT IS RESTING IN BED. FRIEND PRESENT AT THE BEDSIDE. NO NEEDS NOTED. CALL LIGHT IN REACH.
--- NOTE | 2020-11-11 18:10 | NUR ---
PATIENT RESTING IN BED, ONE VISITOR IN ROOM. VITALS AND I&O'S CHARTED. CALL LIGHT IN REACH AND NO FURTHER NEEDS AT THIS TIME.
--- NOTE | 2020-11-11 18:10 | NUR ---
EDUCATED PATIENT NO NEW ORDERS. PATIENT VERBALIZES UNDERSTNDING. PATIENT RESTING IN BED EATING A CLEAR TRAY. PATIENT DENIES ANY PAIN OR NAUSEA. NO NEEDS NOTED. CALL LIGHT IN REACH.
--- NOTE | 2020-11-11 19:25 | NUR ---
REPORT RECEIVED FROM OFFGOING RN, HANNAH.
--- NOTE | 2020-11-11 20:31 | NUR ---
CALL LIGHT ANSWERED, IV PUMP ALARMING. NEW BAG IVF INFUSING WNL ORDERED. CALL LIGHT IN REACH. PATIENT REQUESTING NEW IV SITE. PRIMARY RN NOTIFIED.
--- NOTE | 2020-11-11 21:44 | NUR ---
PT ASSESSMENT COMPLETE. PT RATES PAIN 5/10 TO ABD REQUESTS PRN PAIN MEDICATION, ADMINISTERED. PT DENIES NAUSEA AND SOB. BT'S ACTIVE. PT DENIES ABD TENDERNESS TO PALPATION. IV FLUSHED, WNL AND PATENT. PT EARLIER INQUIRING WITH SCOOTER MECHANIC ABOUT CHANGING IV SITE, PT TELLS THIS WRTIER THAT IV IS IRRITATING WHEN SHE BENDS HER ARM. PT STATES THAT IT IS OK TO LEAVE IV SITE AT THIS TIME. DENIES TO HAVE SITE CHANGED. WILL INFORM RN BURN IF SHE CHANGES HER MIND. PT DENIES FURTHER NEEDS AT THIS TIME. CALL LIGHT IN REACH. VISITOR AT BEDSIDE.
--- NOTE | 2020-11-11 22:55 | NUR ---
REPORT FROM FAMILIA ANGUIANO. PT CALL LIGHT IN REACH - NAD - CONT. TO FOLLOW.
--- NOTE | 2020-11-11 23:08 | NUR ---
PAPER WINDER TO ROOM FOR IV PUMP ALARMING. PT RESTING IN BED WITH EYES CLOSED, WAKES EASILY. VISITOR HAS GONE HOME. PT STATES THAT PAIN IS DECREASED. DENIES FURTHER NEEDS. CALL LIGHT IN REACH.
--- NOTE | 2020-11-12 02:12 | NUR ---
awakened pt for iv meds, assisted pt amb on own to bathroom to void, call light in reach.
--- NOTE | 2020-11-12 04:51 | NUR ---
pt iv alarm sounding - left iv painful, painful to flush - removed iv cath intact. replaced 20g to right hand and great blood return fusing well. pt toll well call light in reach denies needs.
--- NOTE | 2020-11-12 07:15 | NUR ---
Report received from Ana BARBOSA. Pt resting in bed with eyes closed, even and unlabored respirations. IVF infusing WNL. No needs identified, pt allowed to rest at this time. Call light in reach, will continue plan of care.
--- NOTE | 2020-11-12 07:46 | NUR ---
PATIENT BED TO BATHROOM TO CHAIR, SBA. BOARD UPDATED, WET WASHCLOTH PROVIDED, AND FRESH WATER GIVEN. CALL LIGHT IN REACH AND NO FURTHER NEEDS AT THIS TIME.
--- NOTE | 2020-11-12 08:20 | NUR ---
Scheduled medications administered and assessment complete. Pt resting in chair. IVF infusing WNL. Pt states no pain at this time and feeling generally better. Denies need for any PRN meds. Tolerating clear liquid diet at this time. Breakfast ordered. Call light in reach, no other needs at this time
--- NOTE | 2020-11-12 09:28 | NUR ---
PATIENT RESTING IN CHAIR, FRESH WATER PROVIDED. VITALS AND I&O'S CHARTED. CALL LIGHT IN REACH AND NO FURTHER NEEDS AT THIS TIME.
--- NOTE | 2020-11-12 10:00 | NUR ---
IV pump continually alarming distal occlusion. This RN starts new PIV in L AC. IV ABX infusing WNL
--- NOTE | 2020-11-12 10:15 | NUR ---
Pt reports burning in IV. legal practice manager in to start IV, states OK to switch to PO ABX without starting new line. Pt agreeable, no further needs at this time, saline locked.
--- NOTE | 2020-11-12 11:00 | NUR ---
Spoke with Amanda. She states she is feeling better. No changes at home, lives with daughter, granddaughter, and son. Plans on dc to home whem cleared medically. She complains she did not like the Tylenol #3 she was discharged to home with. Requested she speak with the about this.
--- NOTE | 2020-11-12 11:47 | NUR ---
PO medications administered. Pt tolerates full liquid diet at this time. States no pain or needs at this time. Saline locked.
--- NOTE | 2020-11-12 14:00 | NUR ---
PATIENT RESTING IN BED WITH VISITOR IN THE ROOM. FRESH ICE WATER GIVEN. CALL LIGHT IN REACH AND NO FURTHER NEEDS AT THIS TIME.
--- NOTE | 2020-11-12 14:30 | NUR ---
PT SITTING UP IN BED VISITING WITH FAMILY. PT CONFESSED SHE FEELS BETTER TODAY. GAVE ENCOURAGEMENT AND G.POST. WILL FOLLOW NEEDED
--- NOTE | 2020-11-12 16:20 | NUR ---
Rounded on patient who is resting in bed watching tv with visitor at bedside, denies needs, call light in reach
--- NOTE | 2020-11-12 17:19 | NUR ---
Scheduled medications administered, assessment complete. Pt sitting in bed, alert and oriented. Dinner tray taken, pt ate 100% of meal and denies nausea or pain with eating. Fresh water provided. No further needs, call light in reach.
--- NOTE | 2020-11-12 19:31 | NUR ---
RECEIVED REPORT FROM DAY SHIFT RN. PATIENT IS RESTING IN BED WATCHING TV. PATIENT DENIES ANY NEEDS. CALL LIGHT IN REACH.
--- NOTE | 2020-11-12 21:20 | NUR ---
PATIENT ASSESMENT COMPLETED. PATIENTS VITALS TAKEN AND RECORDED. INTAKE AND OUPUT RECORDED. PATIENTS EVENING MEDICATIONS GIVEN PER ORDER. PATIENT REPORTS A HEADACHE AND REQUESTS TYLENOL. PATIENT GIVEN PRN TYLENOL PER ORDER. PATIENT PROVIDED WITH FRESH ICE WATER AND A SNACK. PATIENTS SISTER IS AT THE BEDSIDE. PATIENT IS SL AND BITH IVS FLUSH WELL. PATIENT DENIES ANY ABD PAIN OR NAUSEA. PATIENT AND SISTER DENY AND FURTHER NEEDS. CALL LIGHT AND BELINGINGS ARE WITHIN REACH.
--- NOTE | 2020-11-12 23:03 | NUR ---
PATIENT IS RESTING IN BED WATCHING TV. NO NEEDS NOTED. CALL LIGHT IN REACH.
--- NOTE | 2020-11-13 02:56 | NUR ---
PATIENT IS RESTING IN BED WITH EYES CLOSED, RR 17. CALL LIGHT IN REACH.
--- NOTE | 2020-11-13 04:34 | NUR ---
PATIENT IS RESTING IN BED WITH EYES CLOSED, RR 16. CALL LIGHT IN REACH.
--- NOTE | 2020-11-13 06:05 | NUR ---
PATIENTS MORNING VITALS TAKEN AND RECORDED. PATIENT DENIES ANY PAIN OR NAUSEA. PATIENTS INTAKE AND OUTPOUT RECORDED. PATIENTS DIET ADVANCED PER ORDER. PATIENT EDUCATED ON DIET CHANGE, ALL QUESTIONS ANSWERED. NO FURTHER NEEDS NOTED. CALL LIGHT AND BELONGINGS ARE WITHIN REACH.
--- NOTE | 2020-11-13 07:05 | NUR ---
Report received from Marcell BARBOSA. Pt resting with no needs at this time. Will continue plan of care.
--- NOTE | 2020-11-13 07:50 | NUR ---
Scheduled medications administered, pt up to shower with CNAs. Reports no pain or nausea. Pt reports medications to be helpful. No further needs at this time
--- NOTE | 2020-11-13 07:52 | NUR ---
PATIENT BED TO SHOWER TO CHAIR. BATHROOOM SET UP BY DEPORTATION EXAMINER, PATIENT SHOWER INDEPENDENTLY. WARM WASHCLOTH PROVIDED AND WHITE BOARD UPDATED. CALL LIGHT IN REACH AND NO FURTHER NEEDS AT THIS TIME.
--- NOTE | 2020-11-13 09:11 | NUR ---
PT AWAKE IN CHAIR WATCHING TV. CALL LIGHT WITHIN REACH. NO FURTHER NEEDS AT THIS TIME.
[2020-11-13] MEDS ORDERED: OXYCODONE HCL5 MG PO (09:26)
[2020-11-13] MEDS ORDERED: ONDANSETRON ODT4 MG SL (09:26)
--- NOTE | 2020-11-13 10:19 | NUR ---
PT HAD LAST SET OF VITALS DONE. PT WAITING FOR SISTER TO ARRIVE WITH PANTS AND PT READY FOR DC.
--- NOTE | 2020-11-13 10:23 | NUR ---
Discharge teaching provided, written and verbal, pt verbalizes understanding and has no questions. Pharmacist in room to assessment counselor pt about new prescriptions. IV removed, WNL. VSS, pt A+O, stable condition with no needs.
--- NOTE | 2020-11-13 10:50 | NUR ---
Pt dressed and ready for dc. Awaiting sister to pick her up. Pt states she has called and has not been able to reach. She denies needs for dc and will go home with her daughter and son to assist her.
--- NOTE | 2020-11-13 11:04 | NUR ---
PT ALERT, ORIENTED, DRESSED AND SITTING IN CHAIR WAITING FOR DC. PT VERY PLEASANT, THANKED ME FOR VISITING. HER RIDE SHOULD BE BY SHORTLY, GAVE BLESSING AND WILL FOLLOW
== END 2020-11-13 11:10 | disposition home or self-care (01) | DRG 439 ==
LOC: ED 10:00 → MS 12:15
PROVIDERS: ADMIT Internal Medicine; ATTEND Internal Medicine
DX: K85.80 Other acute pancreatitis without necrosis or infection (principal); A04.8 Other specified bacterial intestinal infections; Z20.822 Contact with and (suspected) exposure to COVID-19; K52.9 Noninfective gastroenteritis and colitis, unspecified; E11.9 Type 2 diabetes mellitus without complications; F10.11 Alcohol abuse, in remission; H40.9 Unspecified glaucoma; F41.9 Anxiety disorder, unspecified; Z87.891 Personal history of nicotine dependence; Z79.899 Other long term (current) drug therapy; Z79.84 Long term (current) use of oral hypoglycemic drugs
CPT/HCPCS: 80048; 80053; 80061; 81001; 82150; 83690; 83735; 85025; C9113; C9803; G0480; J0780; J1170; J1650; J2270; J2405; J3480; J7030; J7120; U0003

== ENCOUNTER 2021-01-17 21:17 | Inpatient (IN) | payer OTHER ==
[~2021-01-17] VITALS: Ht 160 cm; Wt 72.0 kg
[~2021-01-17 21:17] MED LIST changes: +CETAPHIL CREAM454 GM TOP; +DOXYCYCLINE HY100 MG PO; +LATANOPROST2.5 ML OU; +METRONIDAZOLE250 MG PO; +OMEPRAZOLE20 MG PO; +PEPTO-BISM262 MG/15 PO
--- OUTSIDE RECORDS SUMMARY | 2021-01-17 21:30 | XMS ---
PreManage Notification: KAREY MENDIETA Security Audiovisual Aids Technician Events 1 event(s) in the past 18 months Most recent security events: Elopement at [facility] 05/15/2020 18:31 - Other Details: PATIENT LWBS. CRITERIA MET - [facility] CARE PROVIDERS [facility]/[place] 03/21/2020-[facility] PHONE: [phone] Antonio has no Care Guidelines for this patient. Care History Medical/Surgical 03/21/2020 [facility], \T\middot;\T\nbsp; PLEASE REFER PATIENT TO [facility] FOR NON EMERGENT MEDICAL NEEDS. \T\middot;\T\nbsp; [facility] CAN SEE PATIENTS SAME DAY FOR APTS IF PATIENT CALLS FIRST THING IN THE MORNING. [facility] MO[facility] [address] [place] [address] TOTAL 9 NOTE: Visits indicate total known visits. ED/UCC VISIT TRACKING (12 MO.) 01/17/2021 21:[address] [facility] [place] TYPE: Emergency COMPLAINT: - ABD PAIN, NAUSEA 11/10/2020 10:01 [facility] TYPE: Emergency COMPLAINT: - ABDOMINAL PAIN 09/24/2020 20:15 [facility] TYPE: Emergency COMPLAINT: - ABD PAIN 08/22/2020 15:04 [facility] [place] TYPE: Emergency COMPLAINT: - ABDOMINAL PAIN 05/15/2020 19:48 [facility] TYPE: Emergency DIAGNOSES: - Abdominal Pain [...] ABD PAIN INPATIENT VISIT TRACKING (12 MO.) 11/10/2020 12:15 [facility] TYPE: Medical Surgical COMPLAINT: - PANCREATITIS DIAGNOSES: - Noninfective gastroenteritis and colitis, unspecified - [facility]CI (current) use of oral hypoglycemic drugs - Anxiety disorder, unspecified - Unspecified glaucoma - Other detention (current) drug therapy - Other specified bacterial intestinal infections - Other acute pancreatitis without necrosis or infection - Type 2 diabetes mellitus without complications - Personal history of nicotine dependence - Acute pancreatitis without necrosis or infection, unspecified - Alcohol abuse, in remission 09/24/2020 23:11 [facility] TYPE: Medical Surgical COMPLAINT: - PANCREATITIS DIAGNOSES: - Personal history of nicotine dependence - [facility] (current) use of opiate analgesic - Unspecified glaucoma - Acquired absence of other specified parts of digestive tract - [facility]CI (current) use of oral hypoglycemic drugs - Anxiety disorder, unspecified - Hyperglycemia, unspecified - Idiopathic acute pancreatitis without necrosis or infection - Other detention (current) drug therapy - Cyst of pancreas 08/22/2020 18:32 [facility] TYPE: Medical Surgical COMPLAINT: - PANCEATITIS DIAGNOSES: - Idiopathic acute pancreatitis without necrosis or infection - 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 - Other chronic pancreatitis - Other detention (current) drug therapy - regional intermodal truck driver (current) use of opiate analgesic - Type 2 diabetes mellitus without complications [facility] DIAGNOSES: - Idiopathic acute pancreatitis without necrosis or infection - Acute pancreatitis without necrosis or infection, unspecified 04/09/2020 13:42 [facility] TYPE: Observation COMPLAINT: - PANCREATITIS DIAGNOSES: - Anxiety disorder, unspecified - Unspecified glaucoma - Prediabetes - [facility]CI (current) use of oral hypoglycemic drugs - Other chronic pancreatitis - Acute pancreatitis without necrosis or infection, unspecified - COVID-19 - Epigastric pain - Bee allergy status - Other rodent exterminator (current) drug therapy 03/20/2020 11:07 [facility] TYPE: Observation COMPLAINT: - PANCREATITIS DIAGNOSES: - Other acute pancreatitis without necrosis or infection - Acquired absence of other specified parts of digestive tract - Contact with and (suspected) exposure to other viral communicable diseases - Other rodent exterminator (current) drug therapy - Epigastric pain - Anxiety disorder, unspecified - [facility]CI (current) use of oral hypoglycemic drugs - Gastro-esophageal reflux disease without esophagitis - Type 2 diabetes mellitus without complications - Bee allergy status 01/23/2020 16:02 [facility] TYPE: Medical Surgical COMPLAINT: - PANCREATITIS DIAGNOSES: - [facility]CI (current) use of oral hypoglycemic drugs - Type 2 diabetes mellitus without complications - Acute pancreatitis without necrosis or infection, unspecified - Alcohol abuse, in remission - Gastro-esophageal reflux disease without esophagitis - Idiopathic acute pancreatitis without necrosis or infection - Contact with and (suspected) exposure to other viral communicable diseases - Other detention (current) drug therapy [email or web address]
--- NOTE | 2021-01-18 03:35 | NUR ---
pt arrives to floor via stretcher, able to stand and walk to the bathroom. pt unsteady on her feet in the bathroom and upon returning to bed. pt very drowsy throughout admission process. pt oriented to room and poc for this shift. pt oreinted to call light use, call light left within reach. bedalarm placed.
--- NOTE | 2021-01-18 03:35 | NUR ---
IN TO GET VITALS, BEDSIDE TABLE AND CALL LIGTH IN PLACE, CELL PHONE PLUGGED IN, NO FURTHER NEEDS AT THIS TIME
--- NOTE | 2021-01-18 04:00 | NUR ---
ASEESSMENT COMPLETED. PT WAKES TO VOICE. GCS 15, A&O X4 BUT DROWSY. LUNGS CLEAR, HEART TONES REGULAR. ABD SOFT, TENDER, BOWEL TONES ACTIVE. CMS INTACT. IV WNL. IV FLUIDS INFUSING PER ORDER. ABD PAIN 4/10 AT THIS TIME. PT FALLS BACK TO SLEEP QUICKLY. CALL LIGHT IN REACH, BED ALARM ON.
--- NOTE | 2021-01-18 06:16 | NUR ---
PATIENT IS LYING IN BED, ROOM TIDIED, TRSASH EMPTIED, VITALS, IS AND OS CHARTED. NO OTHER IMMEDIATE NEEDS AT THIS TIME.
--- NOTE | 2021-01-18 06:25 | NUR ---
PT STATES SHE HAS 5/10 ABD PAIN, PRN PAIN MED PROVIDED. IV FLUIDS INFUSING PER ORDER. NO OTHER NEEDS AT THIS TIME. CALL LIGHT IN REACH.
--- NOTE | 2021-01-18 07:55 | NUR ---
this rn received report from angelina munoz. pt appears to be resting at this time with respirations noted and call light within reach
--- NOTE | 2021-01-18 09:15 | NUR ---
THIS RN IN PTS ROOM TO CHECK ON PT. PT APPEARS TO BE DROWSY THIS AM BUT DOES AWAKEN TO NAME AND ANSWERS QUESTIONS APPROPRIATELY. THIS RN NOTED PT BP WAS A TAD LOW. THIS RN ASKED IF PT WAS FEELING DIZZY, PT DENIED. THIS RN ASSISTED PT TO THE CHAIR AT BEDSIDE. PT APPEARS TO BE WOBBLY BUT DOES REGAIN HER BALANCE WITH SLIGHT ASSITANCE FROM THIS RN. BP RETAKEN AND SBP IS 106. PT STATES THAT HIS PAIN IS 7/10. THIS RN TO ALLOW PT TO WAKE PT UP MORE TO ASSIST WITH BP PRIOR TO GIVING PAIN MEDS
--- NOTE | 2021-01-18 10:10 | NUR ---
THIS RN IN PTS ROOM TO PROVIDE PT WITH 0.5MG OF DILUADID FOR PTS PAIN. PT SITTING UP IN CHAIR AND APPEARS TO BE RESTING BUT DOESN'T APPEAR TO BE COMFORTABLE
[2021-01-18] MEDS ORDERED: PRELIEF PO (11:01)
--- NOTE | 2021-01-18 11:03 | NUR ---
MED REC COMPLETE
[2021-01-18] MEDS ORDERED: ONDANSETRON ODT4 MG PO (11:04)
[2021-01-18] MEDS ORDERED: OXYCODONE HCL5 MG PO (11:05)
--- NOTE | 2021-01-18 13:08 | NUR ---
THIS RN IN PTS ROOM TO STOP BEEPING IV PUMP. PT APPEARS TO BE RESTING COMFORTABLY IN THE CHAIR. PT AWAKENS TO RN IN ROOM. PT WHEN ASKED HOW HER PAIN IS STATES THAT IT IS COING BACK RATES IT 5/10. THIS RN ABLE TO ASSIST PT TO RESTROOM AT THIS TIME. PT APPEARS MORE STEADY ON HER FEET, PT BACK TO CHAIR. THIS RN TO PROVIDE PT WITH 1MG OF MORPHINE FOR PTS PAIN.
--- NOTE | 2021-01-18 16:47 | NUR ---
jay munoz assisted pt to restroom. pt voided 1000ml at this time and back to chair.
--- NOTE | 2021-01-18 17:25 | NUR ---
this rn in to check on pt. pt appears to be resting at this time with respirations noted and a visitor on the couch
--- NOTE | 2021-01-18 17:55 | NUR ---
pt reports pain 3/10 and is tolerating well. pt states that she needs nothing further at this time.
--- NOTE | 2021-01-18 19:15 | NUR ---
SHIFT REPORT RECEIVED FROM YINKA BARBOSA. PT RESTING IN BED, EYES CLOSED. RR EVEN, UNLABORED. IV FLUIDS INFUSING PER ORDER. CALL LIGHT IN REACH.
--- NOTE | 2021-01-18 22:33 | NUR ---
ASSESSMENT COMPLETED. GCS 15, A&O X4. LUNGS CLEAR, HEART TONES REGULAR. PT REPORTS MILD ABD DISTENTION, TENDERNESS, BOWEL TONES ACTIVE. CMS INTACT. IV WNL, CDI, FLUSHED WELL. PT REPORTS 5/10 ABD PAIN, PRN PAIN MED PROVIDED. BROTH PROVIDED. NO OTHER NEEDS. CALL LIGHT IN REACH.
--- NOTE | 2021-01-18 23:33 | NUR ---
PT RESTING IN BED, EYES CLOSED. RR EVEN, UNLABORED. CALL LIGHT IN REACH.
--- NOTE | 2021-01-19 01:00 | NUR ---
PT RESTING IN BED, EYES CLOSED. RR EVEN, UNLABORED. CALL LIGHT IN REACH.
--- NOTE | 2021-01-19 02:30 | NUR ---
PT CALLS TO USE BR, SBA. BACK TO BED. NEW BAG OF IV FLUIDS PROVIDED. ICE WATER PROVIDED. ASSESSMENT COMPLETED. NO OTHER NEEDS. CALL LIGHT IN REACH.
--- NOTE | 2021-01-19 04:34 | NUR ---
PT RESTING IN BED, EYES CLOSED. RR EVEN, UNLABORED. IV FLUIDS INFUSING PER ORDER. CALL LIGHT IN REACH.
--- NOTE | 2021-01-19 06:26 | NUR ---
PT REPORTS 5/10 ABD PAIN, PRN PAIN MED PROVIDED. ICE WATER PROVIDED. VS AND I&O COMPLETED. PT UP TO BR AND BACK TO BED. NO OTHER NEEDS AT THIS TIME. CALL LIGHT IN REACH.
--- NOTE | 2021-01-19 11:47 | NUR ---
Tylenol 650mg po admin for reports of 6/10 head pain.
--- NOTE | 2021-01-19 12:29 | NUR ---
Patient reports she is feeling better today. Patient tolerating clear liquids well, denies n/v. Recently medicated pt with tylenol for reports of headache. No current needs. Personal supplies and call light within reach. Visitor at bedside.
--- NOTE | 2021-01-19 15:30 | NUR ---
REPORT RECEIVED FROM FAMILIA MARIANO, PT SITTING UP IN CHAIR W/ CALL LIGHT IN REACH. NO NEEDS AT THIS TIME.
--- NOTE | 2021-01-19 16:00 | NUR ---
PATIENT SITTING UP IN CHAIR AFTER HER SHOWER. ORDER PATIENT'S DINNER AND BREAKFAST.
--- NOTE | 2021-01-19 17:30 | NUR ---
PT UP TO BATHROOM, IND, BACK TO CHAIR, IV FLUIDS INFUSING PER PROVIDER ORDER. PT DENIES ANY NEEDS AT THIS TIME.
--- NOTE | 2021-01-19 18:35 | NUR ---
ASSUMED CARE OF PT AT 1530, PT IND IN ROOM, VSS ON RA, A+O x3. IV FLUIDS INFUSING PER PROVIDER ORDER, NO C/O NAUSEA OR PAIN, SUFFICIENT FLUID INTAKE AND URINE OUTPUT.
--- NOTE | 2021-01-19 20:39 | NUR ---
pt up to br, voided large amount of clear yellow urine, back to bed, tolerated well. On room air, lungs clear, abd soft, c/o head and abd pain, medicated with 1 norco. tolerating liquids well, frsh water and puding given. ivf infusing w/o problems, repositions and turns self in bed. hob elevated, coop with assessment
--- NOTE | 2021-01-19 22:30 | NUR ---
CALL LIGHT ANSWERED. PT UP TO BR WITH MINIMAL SBA TO VOID. GAIT STEADY. BACK TO BED, MUKUL WELL. FRESH WATER PROVIDED.
--- NOTE | 2021-01-20 01:24 | NUR ---
resting, eyes closed, call light at bedside, ivf infusing
--- NOTE | 2021-01-20 02:09 | NUR ---
Resting, no distress, ivf infusing
--- NOTE | 2021-01-20 02:43 | NUR ---
PT CALLED, UP TO BATHROOM, BACK TO BED, NO OTHER NEEDS AT THIS TIME. IV INFUSING WNL.
--- NOTE | 2021-01-20 05:32 | NUR ---
VS AND I&O COMPLETE. PT UP TO BR TO VOID. GAIT STEADY. BACK TO BED, MUKUL WELL. ASSESSMENT COMPLETE. DENIES PAIN OR NAUSEA. NEW BAG IVF INFUSING WNL. PT DENIES FURTHER NEEDS. CALL LIGHT IN REACH.
[2021-01-20] MEDS ORDERED: OXYCODONE HCL5 MG PO (09:07)
--- NOTE | 2021-01-20 09:55 | NUR ---
PATIENT DID AM CARE IND. AT SINK. PATIENT SITTING ON EDGE OF BED WAITTING FOR DISCHARGE INSTRUCTIONS AT THIS TIME. VITALS AND I&O'S CHARTED. CALL LIGHT IN REACH.
--- NOTE | 2021-01-20 10:00 | NUR ---
SPOKE WITH PATIENT IN ROOM. PATIENT IS UP AND DRESSED TO GO HOME. PATIENT WAS WALKING AROUND ON OWN AND IS ORIENTED. PATIENT LIVES WITH DAUGHTER AND SON. PATIENT DOES NOT DRIVE, BUT SISTER AND DAUGHTER DRIVE HER. SHE HAS A CANE AND WALKER AT HOME BUT STATE SHE DOESN'T USE THEM. PATIENT STILL USES [facility]. SHE USES THEIR PHARMACY OR [facility]. DISCUSSED I WILL SENT RECORDS TO [facility] AND SHE IS TO FOLLOW UP WITH THEM. ALSO SPOKE WITH HER ABOUT FOLLOW UP WITH SPECIALISTS. SHE STATES HER DAUGHTER SAID SHE WILL DRIVE HER. SARA LUTZ CAME IN AND DISCUSSED SHE IS SETTING UP FOLLOW UP. ASKS FOR CELL PHONE # SO SHE CAN CALL HER ONCE SHE GETS IT ALL SET UP. PT STATES #[phone]. SHE STATES SHE HAS VOICEMAIL TOO. DISCUSSED WITH HER THAT [employer]UR[employer] HAS MEDICAL TRANSPORT, AND [facility] ALSO HAS MEDICAL TRANSPORT. SHE IS AWARE OF THIS AND STATES SHE HAS USED BOTH. SHE KNOWS OF NOTHING SHE NEEDS TO GO HOME SAFELY.
== END 2021-01-20 10:20 | disposition home or self-care (01) | DRG 440 ==
LOC: ED 21:17 → MS 21:19 → ED 21:19 → MS 01-18 10:47
PROVIDERS: ADMIT Student in an Organized Health Care Education/Training Program; ATTEND Student in an Organized Health Care Education/Training Program
DX: K85.00 Idiopathic acute pancreatitis without necrosis or infection (principal); E11.9 Type 2 diabetes mellitus without complications; Z79.899 Other long term (current) drug therapy; Z91.030 Bee allergy status
CPT/HCPCS: 74177; 80053; 81001; 83690; 83735; 84703; 85025; 96375; 96376; 99285-25; C9113; C9803; J1170; J1650; J2270; J2405; J2550; J7030; J7121; Q9967; U0003

== ENCOUNTER 2021-06-06 01:01 | Emergency (ER) | payer OTHER ==
[~2021-06-06] VITALS: Ht 160 cm; Wt 68.9 kg
[~2021-06-06 01:01] MED LIST changes: +ONDANSETRON ODT4 MG PO; +PRELIEF PO
--- OUTSIDE RECORDS SUMMARY | 2021-06-06 01:04 | XMS ---
PreManage Notification: KAREY MENDIETA Security Philosophy Instructor Events 1 event(s) in the past 18 months Most recent security events: Elopement at [facility] 05/15/2020 18:31 - Other Details: PATIENT LWBS. CRITERIA MET - [facility] CARE PROVIDERS [facility] 03/21/2020-[facility] PHONE: [phone] Antonio has no Care Guidelines for this patient. Care History Medical/Surgical 03/21/2020 [facility] \T\middot;\T\nbsp; PLEASE REFER PATIENT TO [facility] FOR NON EMERGENT MEDICAL NEEDS. \T\middot;\T\nbsp; [facility] CAN SEE PATIENTS SAME DAY FOR APTS IF PATIENT CALLS FIRST THING IN THE MORNING. E.D. VISIT COUNT (12 MO.) 4 [facility]. TOTAL 4 NOTE: Visits indicate total known visits. 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 - Idiopathic acute pancreatitis without necrosis or infection - Type 2 diabetes mellitus without complications - Acute pancreatitis without necrosis or infection, unspecified - Bee allergy status - Bee allergy status - Other [facility] drug therapy - Idiopathic acute pancreatitis without necrosis or infection - Type 2 diabetes mellitus without complications 11/10/2020 12:15 [facility] TYPE: Medical Surgical COMPLAINT: - PANCREATITIS DIAGNOSES: - Noninfective gastroenteritis and colitis, unspecified - senior care (current) use of oral hypoglycemic drugs - Anxiety disorder, unspecified - Unspecified glaucoma - Other brim stretching machine operator (current) drug therapy - Other specified bacterial intestinal infections - Other acute pancreatitis without necrosis or infection - Type 2 diabetes mellitus without complications - Personal history of nicotine dependence - Acute pancreatitis without necrosis or infection, unspecified - Alcohol abuse, in remission 09/24/2020 23:11 [facility] TYPE: Medical Surgical COMPLAINT: - PANCREATITIS DIAGNOSES: - Personal history of nicotine dependence - senior care (current) use of opiate analgesic - Unspecified glaucoma - Acquired absence of other specified parts of digestive tract - senior care (current) use of oral hypoglycemic drugs - Anxiety disorder, unspecified - Hyperglycemia, unspecified - Idiopathic acute pancreatitis without necrosis or infection - Other [facility] (current) drug therapy - Cyst of pancreas 08/22/2020 18:32 [facility] TYPE: Medical Surgical COMPLAINT: - PANCEATITIS DIAGNOSES: - Idiopathic acute pancreatitis without necrosis or infection - crystal gazer (current) use of anticoagulants - Other chronic pancreatitis - Other brim stretching machine operator (current) drug therapy - crystal gazer (current) use of opiate analgesic - Type 2 diabetes mellitus without complications [email or web address]
[2021-06-06] MEDS ORDERED: HYDROCODON-ACE1 EA10 PO (14:43)
[2021-06-06] MEDS ORDERED: REGLAN10 MG PO (14:43)
[2021-06-06] MEDS ORDERED: ONDANSETRON ODT8 MG PO (14:43)
== END 2021-06-06 15:03 | disposition home or self-care (01) ==
LOC: ED 01:01
DX: K85.90 Acute pancreatitis without necrosis or infection, unspecified (principal); E11.9 Type 2 diabetes mellitus without complications; Z91.030 Bee allergy status; Z79.84 Long term (current) use of oral hypoglycemic drugs; Z79.899 Other long term (current) drug therapy
CPT/HCPCS: 80053; 81001; 83690; 85025; 96374; 96375; 96376; 99284-25; A9270; C9803; J1170; J1790; J2270; J2405; J7121; U0003

== ENCOUNTER 2021-07-16 14:37 | Inpatient (IN) | payer OTHER ==
[~2021-07-16] VITALS: Ht 160 cm; Wt 67.0 kg
[~2021-07-16 14:37] MED LIST changes: +HYDROCODON-ACE1 EA10 PO; +METFORMIN HCL1000 MG PO; +ONDANSETRON ODT8 MG PO; +REGLAN10 MG PO
--- OUTSIDE RECORDS SUMMARY | 2021-07-16 14:40 | XMS ---
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 CRITERIA MET - [facility] CARE PROVIDERS [facility] 03/21/2020-[facility] PHONE: [phone] Antonio has no Care Guidelines for this patient. Care History Medical/Surgical 03/21/2020 [facility] \T\middot;\T\nbsp; PLEASE REFER PATIENT TO [facility] FOR NON EMERGENT MEDICAL NEEDS. \T\middot;\T\nbsp; [facility] CAN SEE PATIENTS SAME DAY FOR APTS IF PATIENT CALLS FIRST THING IN THE MORNING. E.D. VISIT COUNT (12 MO.) 5 [facility]. TOTAL 5 NOTE: Visits indicate total known visits. ED/UCC VISIT TRACKING (12 MO.) 07/16/2021 14:38 [facility] TYPE: Emergency COMPLAINT: - ABDOMINAL PAIN 06/06/2021 01:01 [facility] TYPE: Emergency COMPLAINT: - ABD PAIN DIAGNOSES: - Type 2 diabetes mellitus without complications - Bee allergy status - [facility] (current) use of oral hypoglycemic drugs - Acute pancreatitis without necrosis or infection, unspecified - Other [facility]iary (current) drug therapy - Upper abdominal pain, unspecified 11/10/2020 10:01 [facility] TYPE: Emergency COMPLAINT: - ABDOMINAL PAIN 09/24/2020 20:15 [facility] TYPE: Emergency COMPLAINT: - ABD PAIN 08/22/2020 15:04 [facility] TYPE: Emergency COMPLAINT: - ABDOMINAL PAIN INPATIENT VISIT TRACKING (12 MO.) 01/18/2021 10:47 [facility] TYPE: Medical Surgical COMPLAINT: - PANCREATITITS DIAGNOSES: - Other 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 (current) drug therapy - Idiopathic acute pancreatitis without necrosis or infection - Type 2 diabetes mellitus without complications - Acute pancreatitis without necrosis or infection, unspecified - Bee allergy status - Bee allergy status - Other 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 (current) drug therapy - Idiopathic acute pancreatitis without necrosis or infection - Type 2 diabetes mellitus without complications 11/10/2020 12:15 [facility] TYPE: Medical Surgical COMPLAINT: - PANCREATITIS DIAGNOSES: - Noninfective gastroenteritis and colitis, unspecified - [facility] (current) use of oral hypoglycemic drugs - Anxiety disorder, unspecified - Unspecified glaucoma - Other [facility] (current) drug therapy - Other specified bacterial intestinal infections - Other acute pancreatitis without necrosis or infection - Type 2 diabetes mellitus without complications - Personal history of nicotine dependence - Acute pancreatitis without necrosis or infection, unspecified - Alcohol abuse, in remission 09/24/2020 23:11 [facility] TYPE: Medical Surgical COMPLAINT: - PANCREATITIS DIAGNOSES: - Personal history of nicotine dependence - [facility] (current) use of opiate analgesic - Unspecified glaucoma - Acquired absence of other specified parts of digestive tract - 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 (current) use of oral hypoglycemic drugs - Anxiety disorder, unspecified - Hyperglycemia, unspecified - Idiopathic acute pancreatitis without necrosis or infection - Other [facility] (current) drug therapy - Cyst of pancreas 08/22/2020 18:[address] [facility] TYPE: Medical Surgical COMPLAINT: - PANCEATITIS DIAGNOSES: - Idiopathic acute pancreatitis without necrosis or infection - 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 (current) use of anticoagulants - Other chronic pancreatitis - Other pen[facility]entiary (current) drug therapy - [facility] (current) use of opiate analgesic - Type 2 diabetes mellitus without complications [email or web address]
--- NOTE | 2021-07-16 20:16 | NUR ---
PATIENT ARRIVED TO THE FLOOR VIA STRETCHER. PATIENT ABLE TO AMBULATE WITH NO ASSISTANCE TO HOSPITAL BED. PATIENTS IV INFUSING PER ORDER. PATIENTS BS IS WNL. PATIENT REPORTS NAUSEA, PRN MEDICATION GIVEN PER ORDER. PATIENT RATES PAIN AT 8/10 IN HER ABD, PRN PAIN MEDICATION GIVEN PER ORDER. ADMISSION BEING COMPLETED BY FILM WRITER. NO FURTHER NEEDS NOTED. PATIENT UP TO VOID.
--- NOTE | 2021-07-16 22:32 | NUR ---
PATIENT IS RESTING IN BED WATCHING TV. PATIENT RATES PAIN AT AN 8/10 IN HER ABD, PRN PAIN MEDICATION GIVEN PER ORDER. PATIENTS FIRST BOLUS COMPLETED PER ORDER. PATIENTS SECOND BOLUS INFUSING PER ORDER. NO FURTHER NEEDS NOTED. CALL LIGHT IN REACH.
--- NOTE | 2021-07-16 23:16 | NUR ---
PATIENT IS RESTING IN BED WITH EYES CLSOED, RR 18. CALL LIGHT IN REACH.
--- NOTE | 2021-07-17 00:34 | NUR ---
PATIENT UP TO RESTROOM. PATIENT ABLE TO VOID. PATIENT RATES PAIN AT A 8/10 IN HER RUQ. PRN PAIN MEDICATION GIVEN PER ORDER. PATIENT GIVEN PRN NAUSEA MEDICATION. NO FURTHER NEEDS NOTED. 2ND BOLUS COMPLETED. IV INFUSING PER ORDER. CALL LIGHT IN REACH.
--- NOTE | 2021-07-17 02:31 | NUR ---
PATIENTS VITALS TAKEN AND RECORDED. INTAKE AND OUTPUT RECORDED. IV INFUSING PER ORDER. PATIENT DENIES ANY NAUSEA. PATIENT RATES PAIN AT A 5/10 AND DENIES THE NEED FOR PAIN MEDICATION AT THIS TIME. NO FURHTER NEEDS NOTED. CALL LIGHT IN REACH.
--- NOTE | 2021-07-17 05:27 | NUR ---
PATIENT RATES PAIN AT A 7/10, PRN PAIN MEDICATION GIVEN PER ORDER. PATIENT DENIES ANY NAUSEA. VITLAS TAKEN AND RECORDED. PATIENT UP TO VOID. PATIENT BACK IN BED RESTING. INTAKE AND OUTPUT RECORDED. PATIENTS IV INFUSING PER ORDER. NO FURTHER NEEDS NOTED. CALL LIGHT IN REACH.
--- NOTE | 2021-07-17 07:37 | NUR ---
REPORT RECEIVED FROM NIGHT RN AND PT. CARE RESUMED. PT C/O 12/17 ABDOMINAL PAIN AND NAUSEA. ADMIN 2MG IVP MORPHINE AND ZOFRAN. SHE DENIES FURTHER NEEDS. LEFT RESTING WITH CALL LIGHT IN REACH.
--- NOTE | 2021-07-17 08:31 | NUR ---
PT AMBULATORY TO BATHROOM, PT URINATED, NO BM. PT SITTING UP IN BED, REPORTS CONTINUED 8/10 PAIN. CALL LIGHT WITHIN REACH.
--- NOTE | 2021-07-17 10:36 | NUR ---
PT UP TO BATHROOM, SHOWER SET UP, LINENS CHANGED. PT WILL CALL WHEN FINISHED. NO ASSISTANCE NEEDED AT THIS TIME.
--- NOTE | 2021-07-17 11:21 | NUR ---
IN TO CHECK ON PT, WHO HAS RECENTLY HAD A SHOWER. REPORTS 3/10 PAIN, NO PAIN MEDS NEEDED AT THIS TIME. MAINTENANCE FLUIDS RESTARTED. PT SITTING UP IN BED, WATCHING TV. NO REQUESTS AT THIS TIME.
[2021-07-17] MEDS ORDERED: EVISTA60 MG PO (11:55)
--- NOTE | 2021-07-17 12:38 | NUR ---
PT ALERT, ORIENTED AND SITTING UP IN BED. PT INFORMED ME THAT SHE IS DOING SO MUCH BETTER THAN AT ADMISSION. GAVE ENCOURAGEMENT, BLESSING AND WILL FOLLOW NEEDED
--- NOTE | 2021-07-17 13:04 | NUR ---
IN TO CHECK ON PT, WHO IS SLEEPING. WILL NOT DISTURB AT THIS TIME. RESPIRATIONS EVEN AND UNLABORED.
--- NOTE | 2021-07-17 14:53 | NUR ---
PT SLEEPING AT THIS TIME. RESPIRATIONS EVEN AND UNLABORED. CALL LIGHT WITHIN REACH.
[2021-07-17] MEDS ORDERED: TRIAMCINOLONE A15 G1 TOP (17:19)
--- NOTE | 2021-07-17 17:19 | NUR ---
MED REC COMPLETE
--- NOTE | 2021-07-17 20:27 | NUR ---
IND IN ROOM, ROOM AIR, C/O ABD PAIN, TENDER, 4/10 ABD PAIN, MEDICATED WITH OXYCODONE 5MG PO 1 TAB. IVF INFUSING. TOLERATING LIQUIDS WELL NO EMESIS, WILL UPDATE DIET TO REG FOR AM BREAKFAT. PT AWARE. VOIDING QS. COOP WTIH ASSESSMETNS. CALL IGHT AND FLUIDS AT BEDSIDE
--- NOTE | 2021-07-17 23:54 | NUR ---
RESTING, NO FURTHER C/O OR S/SX ABD PAIN, CALL LIGHT AT HANDS REACH. EYES CLOSED, NO DISTRESS
--- NOTE | 2021-07-18 01:51 | NUR ---
RESTING, EYES CLOSED, NO DISTRESS, CALL LIGHT AND FLUIDS AT BEDSIDE
--- NOTE | 2021-07-18 05:37 | NUR ---
On room air, no c/o n/v, was medicated x1 with Oxycodone per abd pain, effective. tolerating liquids well, up to br voiding qs. IVF infusing w/o problems. uses call light
--- NOTE | 2021-07-18 10:48 | NUR ---
PT UP TO SHOWER WITH SHEARER HELPER ASSIST. PT TOLERATED WELL. CONTINUES TO HAVE NO PAIN. IV FLUIDS RESTARTED. PT HAS NO OTHER NEEDS AT THIS TIME.
--- NOTE | 2021-07-18 11:36 | NUR ---
PT SITTING UP IN BED, WATCHING TV. PT MENTIONED SHE FEELS BETTER THAN THURS. HOPES TO DC LATER TODAY. THANKED ME FOR COMING IN. GAVE BLESSING AND WILL FOLLOW
[2021-07-18] MEDS ORDERED: HYDROCODON-ACE1 EA10 PO (11:58)
== END 2021-07-18 12:15 | disposition home or self-care (01) | DRG 440 ==
LOC: ED 14:37 → MS 18:50
PROVIDERS: ADMIT Internal Medicine; ATTEND Internal Medicine
DX: K85.20 Alcohol induced acute pancreatitis without necrosis or infection (principal); Z20.822 Contact with and (suspected) exposure to COVID-19; E11.9 Type 2 diabetes mellitus without complications; Z91.030 Bee allergy status; Z79.899 Other long term (current) drug therapy; Z79.84 Long term (current) use of oral hypoglycemic drugs
CPT/HCPCS: 36415; 80053; 83690; 85025; C9803; J0780; J1170; J1650; J2270; J2405; J7121; U0003

== ENCOUNTER 2021-11-14 18:42 | Observation (INO) | payer OTHER ==
[~2021-11-14] VITALS: Ht 160 cm; Wt 78.0 kg
[~2021-11-14 18:42] MED LIST changes: +EVISTA60 MG PO
--- OUTSIDE RECORDS SUMMARY | 2021-11-14 18:44 | XMS ---
PreManage Notification: KAREY MENDIETA Security It Help Desk Associate Events No recent Security Events currently on file CRITERIA MET - [facility] PROVIDERS [facility] 03/21/2020-[facility] PHONE: [phone] Antonio has no Care Guidelines for this patient. Care History Medical/Surgical 03/21/2020 [facility] - PATIENT IS [facility] ELIGIBLE, \T\middot;\T\nbsp; PLEASE REFER PATIENT TO [facility] FOR NON EMERGENT MEDICAL NEEDS. \T\middot;\T\nbsp; [facility] CAN SEE PATIENTS SAME DAY FOR APTS IF PATIENT CALLS FIRST THING IN THE MORNING. E.D. VISIT COUNT (12 MO.) 3 [facility] TOTAL 3 NOTE: Visits indicate total known visits. ED/UCC VISIT TRACKING (12 MO.) 11/14/2021 18:42 [facility] TYPE: Emergency COMPLAINT: - FLANK PAIN 07/16/2021 14:38 [facility] TYPE: Emergency COMPLAINT: - ABDOMINAL PAIN 06/06/2021 01:01 [facility] TYPE: Emergency COMPLAINT: - ABD PAIN DIAGNOSES: - Contact with and (suspected) exposure to COVID-19 - Type 2 diabetes mellitus without complications - Bee allergy status - senior living (current) use of oral hypoglycemic drugs - Acute pancreatitis without necrosis or infection, unspecified - Other residential (current) drug therapy - Upper abdominal pain, unspecified INPATIENT VISIT TRACKING (12 MO.) 07/16/2021 18:50 [facility] TYPE: Medical Surgical COMPLAINT: - PANCREATITIS DIAGNOSES: - Contact with and (suspected) exposure to COVID-19 - Type 2 diabetes mellitus without complications - Other residential (current) drug therapy - Alcohol induced acute pancreatitis without necrosis or infection - terminal supervisor (current) use of oral hypoglycemic drugs - Bee allergy status 01/18/2021 10:47 [facility] TYPE: Medical Surgical COMPLAINT: - PANCREATITITS DIAGNOSES: - Other residential (current) drug therapy - Idiopathic acute pancreatitis without necrosis or infection - Type 2 diabetes mellitus without complications - Acute pancreatitis without necrosis or infection, unspecified - Bee allergy status - Bee allergy status - Other residential (current) drug therapy - Idiopathic acute pancreatitis without necrosis or infection - Type 2 diabetes mellitus without complications [email or web address]
--- NOTE | 2021-11-14 22:40 | NUR ---
2240 - admitted to room 113 from ED per abd pain/pancreatitis. alert and oriented, IVf bolus infusing RAC.
--- NOTE | 2021-11-14 22:55 | NUR ---
ASSISTED WITH PT. VITALS ON ADMISSION. PROVIDED PT. WITH FRESH ICE WATER. CALL LIGHT LEFT WIHIN REACH. NO OTHER IMMEDIATE NEEDS AT THIS TIME.
--- NOTE | 2021-11-14 23:51 | NUR ---
pt moved to room 112 pt under Airborne isolation precautions, covid+. on room air, lungs dim at bases, no cough. IVF infusing RAC, patent.c/o abd pain cramping, medicated with Oxycodone 10mg, tolerating cler liquid diet, no emesis. moves all extremities well, oriented to room and procedures, and aware of covid results and isolation precautions, concerned about being + as her daugther is , reassured. alert and oriented, fluids and call light at hands reach.
--- NOTE | 2021-11-15 00:56 | NUR ---
RESTING, EYES CLOSED, NO DISTRESS, CALL LIGHT AND FLUIDS AT BEDSIDE, CONT ON AIRBORNE ISOLATION PRECAUTIONS
--- NOTE | 2021-11-15 02:21 | NUR ---
onairborne isolation precautions. on room air, no distress, turns and repositions self in bed, no further c/o pain. ivf infusing w/o problems.
--- NOTE | 2021-11-15 03:21 | NUR ---
up to br, voided QS, c/o abd pain, medicated with morphine 4mg IV, backa to bed, tolerated well, IVF infusing, no emesis, call light and fluids at bedside, coop with assessment
--- NOTE | 2021-11-15 03:36 | NUR ---
PT CALLED NURSES STATION TO REPORT NAUSEA, ASKED FOR "PUKE BAG", THIS RN INTO ROOM PROVIDED EMESIS BAG AND THEN ADMINISTERED 4MG IV ZOFRAN PRN FOR NAUSEA. PT HAD NO OTHER REQUESTS. SHE HAD STOPPED WRETCHING WHEN RN RETURNED WITH MEDICATION. SHE REPORTED TO STILL FEEL NAUSEA.
--- NOTE | 2021-11-15 04:43 | NUR ---
Pt on Airborne isolation precautions. On room air, dim lungs, no cough or sob has been medicated with Oxycodone, Morphine per c/o abd pain. and zofran per c/o upset stomach, feeling nauseated. effective. Up to br with 1PA, voided QS. Tolerating liquids well prior to that. alert and oriented. has slept since admission. IVF infusing w/o problems. uses call light.
--- NOTE | 2021-11-15 06:05 | NUR ---
pt awake, c/o abd pain, medicated with Oxycodone 5mg and Tylenol 500mg po. Up to br, voiding yellow urine. had 150cc thick green colored emesis. was medicated with zofran right before. tolerating liquids well, IVF infusing. semiindependent in room. pleasant and coop
--- NOTE | 2021-11-15 07:30 | NUR ---
SHIFT REPORT RECEIVED BY THIS RN FROM FAMILIA FARRELL. PATIENT UP TO THE RESTROOM WITH ASSISTING.PATIENT READY FOR SURGERY AT 8AM. PATIENT HAS NO FURTHER CARE NEEDS FROM THIS RN AT THIS TIME. CALL LIGHT IN REACH.
--- NOTE | 2021-11-15 07:30 | NUR ---
PATIENT RESTING QUIETLY IN BED,EYES CLOSED, RESPIRATIONS ARE REGULAR AND EVEN, AND CALL LIGHT IS IN REACH. PATIENT HAS NO NURSING CARE NEEDS AT THIS TIME. SHIFT REPORT RECEIVED BY THIS RN FROM FAMILIA FARRELL.
--- NOTE | 2021-11-15 07:59 | NUR ---
TOOK PT BS @ APPROX 0725. PT COMPLAINED OF GENERAL PAIN THAT SHE RATED AT ABOUT AN 8. RN NOTIFIED. NO OTHER REQUESTS AT THIS TIME. CALL LIGHT IN REACH.
--- NOTE | 2021-11-15 09:52 | NUR ---
PATIENT CALLED WITH 7/10 ABD PAIN. 10MG PO OXYCODONE AND 500MG PO TYLENOL GIVEN. PATIENT ALSO HAVING SOME NAUSEA AND GIVEN 4MG SIVP ZOFRAN. THIS RN 1PSBA PATIENT TO BATHROOM AND BACK TO BED. PATIENT WORKING ON HER BREAKFAST. CALL LIGHT IS IN REACH AND PATIENT DENIES ANY OTHER CARE NEEDS AT THIS TIME.
--- NOTE | 2021-11-15 10:05 | NUR ---
PT VITALS/I&O'S DOCMENTED. WARM WASH CLOTH FOR FACE/HANDS PERFORMED INDEPENDENTLY. NO ITHER REQUESTS AT THIS TIME. CALL LIGHT W/IN REACH.
--- NOTE | 2021-11-15 11:19 | NUR ---
THIS RN IN TO SEE PATIENT. PATIENT REMAINS IN COVID PRECAUTIONS. PATIENT RESTING QUIETLY IN BED ON HER RIGHT SIDE, RESPIRATIONS ARE REGULAR AND EVEN, FACE LOOKS LOOKS RELAXED, EYES ARE CLOSED, AND CALL LIGHT IS IN REACH. PATIENT HAS NO CURRENT CARE NEEDS AT THIS TIME.
--- NOTE | 2021-11-15 12:03 | NUR ---
PATIENT CALLED HAVING 7/10 ABD PAIN AGAIN WIH SOME NAUSEA. TO EARLY FOR PO PAIN MEDICATION. 4MG SIVP MS GIVEN AFTER 10MG SIVP COMPAZINE GIVEN FOR NAUSEA. PATIENT ALSO RECEIVED 1 UNIT OF INSULIN FOR HER BS. PATIENT DENIED ANY OTHER CARE NEEDS AT THIS TIME AND HER CLEAR LIQUID TRAY HAS ARRIVED. CALL LIGHT IS IN REACH.
--- NOTE | 2021-11-15 15:32 | NUR ---
THIS RN IN TO SEE PATIENT. PATIENT HAS NO C/O N/V OR PAIN AT THIS TIME. AFTERNOON ASSESSMENT COMPLETE. PATIENT DENIES ANY OTHER CARE NEEDS AT THIS TIME. CALL LIGHT IN REACH.
--- NOTE | 2021-11-15 17:34 | NUR ---
THIS RN IN TO SEE PATIENT. PATIENT DENIES ANY PAIN OR NAUSEA AT THIS TIME. PATIENT SAYS SHE IS,"DOING PRETTY GOOD, JUST TIRED". PATIENT HAD NO OTHER CARE NEEDS AT THIS TIME. CALL LIGHT IN REACH.
--- NOTE | 2021-11-15 19:13 | NUR ---
cont on airborne isolation precautions, resting, eyes closed, no s/sx distress. call light and fluids at bedside
--- NOTE | 2021-11-15 21:27 | NUR ---
cbg wnl, no ss coverage needed. On room air, clear lungs, no c/o pain or abd pain, no emesis. IVF infusing w/o problems. A&O x4, pleasant and coop. Up to br, voided large amount of clear urine,back to bed, tolerated very well. uses call light, puding and fresh fluids given on requests. cont on airborne isolation precautions.
--- NOTE | 2021-11-15 23:17 | NUR ---
ON AIRBORNE ISOLATION PRECAUTIONS, RESTING, EYES CLOSED, NO DISTRESS. IVF INFUSING W/O PROBLEMS
--- NOTE | 2021-11-16 00:44 | NUR ---
On airborne isolation precautions. eyes closed, no distress, IVF infusing w/o problems, call light and fluids at hands reach
--- NOTE | 2021-11-16 02:34 | NUR ---
up to br, voided large amount of yellow urine, back to bed, tolerating well, fresh fluids given, no emesis, denies c/o abd pain or emesis. coop with assessment
--- NOTE | 2021-11-16 05:09 | NUR ---
PT ON AIRBORNE ISOLATION PRECAUTIONS. ON ROOM AIR, CLEAR LUNGS, NO C/O SOB OR CP. SEMI INDEPENDENT INROOM, UP TO BR W/O ASSIST. VOIDING LARGE AMUNT OF CLEAR YELLOW URINE. IVF INFUSING W/O PROBLMES, TOLERATING LIQUID WELLS, NO EMESIS. HAS HAD NO C/O EMEIS/DRY HEAVING OR ABD PAIN. "I FEEL SO MUCH BETTER' STATED. PLEASANT, COOPERATIVE ALERT AND ORIENTED. USES CALL LIGHT.
--- NOTE | 2021-11-16 07:24 | NUR ---
THIS RN RECEIVED SHIFT REPORT FROM FAMILIA FARRELL. PATIENT RESTING QUIETLY IN BED AND DENIES PAIN AND NAUSEA AT THIS TIME. PATIENT DENIES ANY OTHR CARE NEEDS AT THIS TIME. CALL LIGHT IS IN REACH.
--- NOTE | 2021-11-16 08:00 | NUR ---
patient sitting in the bed for brakfast. blood sugar done. warm washcloth offered and taken. call light within reach. no further needs at this time.
--- NOTE | 2021-11-16 10:22 | NUR ---
THIS RN IN TO SEE PATIENT. PATIENT ATE 100% OF BREAKFAST, BOWEL TONES ACTIVE, LUNGS CLEAR, DENIES NAUSEA AND PAIN, AND DENIES ANY OTHER CARE NEEDS AT THIS TIME. AM ASSESSMENT COMPLETE. CALL LIGHT IS IN REACH.
--- NOTE | 2021-11-16 12:07 | NUR ---
THIS RN IN TO SEE PATIENT. PATIENT NEEDED NO INSULIN COVERAGE FOR LUNCH. PATIENT ON 60G CARB DIET AND IS EATING HER LUNCH NOW. PATIENT HAS STILL HAD NO PAIN OR NAUSEA AND HAS NO CARE NEEDS AT THIS TIME. CALL LIGHT IS IN REACH.
[2021-11-16] MEDS ORDERED: METFORMIN HCL1000 MG PO ×2 (13:10→13:11)
--- NOTE | 2021-11-16 14:24 | NUR ---
OSVALDO WANG HAS PULLLED PATIENT'S IV AND IS HELPING THE PATIENT TAKE A SHOWER AT THIS TIME. THIS RN WILL DC PATIENT AFTER HER SHOWER.
== END 2021-11-16 15:15 | disposition home or self-care (01) ==
LOC: ED 18:42 → MS 21:47
PROVIDERS: ADMIT Internal Medicine; ATTEND Internal Medicine
DX: K85.90 Acute pancreatitis without necrosis or infection, unspecified (principal); E11.9 Type 2 diabetes mellitus without complications; U07.1 COVID-19; K86.3 Pseudocyst of pancreas; F41.9 Anxiety disorder, unspecified; Z98.51 Tubal ligation status; Z96.651 Presence of right artificial knee joint; Z91.030 Bee allergy status; Z79.84 Long term (current) use of oral hypoglycemic drugs
CPT/HCPCS: 36415; 74177; 80053; 80061; 81001; 83036; 83690; 85025; 87502; 96374; 96375; 96376; 99285-25; A9270; C9803; G0378; G0480; J0780; J1170; J1815; J2270; J2405; J7030; J7121; Q9967; U0003